=== PATIENT | female | born 1945 | race Caucasian/White ===

== ENCOUNTER 2019-03-06 15:22 | Outpatient (RCR) | payer MEDICARE, MEDICAID, SELFPAY ==
[2019-03-07 06:44] LABS: Add Urine Microscopic? YES; Appearance Urine Clear (Clear); Bacteria Urine Trace /hpf; Bilirubin Urine Negative (Negative); Blood Urine Negative (Negative); Color Urine Yellow (Yellow); Glucose Urine UA Negative (Negative); Ketones Urine Negative (Negative); Leukocyte Esterase Ur 2+ LEU/UL (Negative); Mucus Urine Rare /lpf; Nitrate Urine Negative (Negative); Protein Urine Negative (Negative); Specific Grav Ur 1.018 (1.001-1.035); Squamous Epithelial Cell Urine Occasional /hpf (Few); Urobilinogen Urine Negative mg/dL (<2.0); WBC Urine >75
== END 2019-06-04 23:59 | disposition home or self-care (01) ==
LOC: CAMBRIDGE 15:22
PROVIDERS: PCP Internal Medicine; Visit Provider Internal Medicine
DX: N39.0 Urinary tract infection, site not specified (principal)
CPT/HCPCS: 81001; 87086; 87088

== ENCOUNTER 2019-06-12 10:13 | Outpatient (RCR) | payer MEDICARE, MEDICAID, SELFPAY ==
[2019-06-13 06:56] LABS: Blood Urea Nitrogen 33 mg/dL (7-17); Calcium 9.7 mg/dL (8.4-10.2); Carbon Dioxide 28 mmol/L (22-30); Chloride 101 mmol/L (98-107); Estimated Glomerular Filt Rate 44; Glucose 124 mg/dL (65-105); Potassium 3.9 mmol/L (3.4-5.0); Sodium 142 mmol/L (137-145)
== END 2019-09-10 23:59 | disposition home or self-care (01) ==
LOC: CAMBRIDGE 10:13
PROVIDERS: PCP Internal Medicine; Visit Provider Internal Medicine
DX: E11.42 Type 2 diabetes mellitus with diabetic polyneuropathy (principal)
CPT/HCPCS: 36415; 80048

== ENCOUNTER 2019-11-29 15:00 | Outpatient (CLI) | payer MEDICARE, MEDICAID, SELFPAY ==
[2019-11-29 15:37] LABS: Basophils Percent Auto 0.3 % (0.2-1.2); Eosinophils Absolute Auto 0.4 K/mm3 (0-0.3); Eosinophils Percent Auto 4.3 % (0-4.4); Hemoglobin 12.6 g/dL (12.0-15.0); Immature Granulocyte Absolute 0.03 K/mm3 (0.00-0.031); Immature Granulocyte Percent A 0.3 % (0-0.5); Lymphocytes Absolute Auto 1.85 K/mm3 (0.9-3.2); Mean Corpuscular HGB Conc 30.7 g/dl (32-36); Mean Corpuscular Hemoglobin 26.5 pg (26-34); Mean Corpuscular Volume 86.1 fl (80-100); Mean Platelet Volume 11.4 fl (7.4-10.4); Monocytes Absolute Auto 0.8 K/mm3 (0.1-0.6); Monocytes Percent Auto 8.2 % (2.6-8.5); Neutrophils Absolute Auto 6.6 K/mm3 (1.3-6.7); Neutrophils Percent Auto 67.9 % (45.5-73.1); Platelet Count Result 271 k/mm3 (150-375); Red Blood Count 4.76 M/mm3 (4.2-5.4); Red Cell Distribution Width 15.2 % (11.5-14.5); White Blood Count 9.7 K/mm3 (4.5-10.0)
[2019-11-29 15:49] LABS: Alanine Aminotransferase 13 U/L (4-35); Albumin Level 3.7 g/dL (3.5-5.1); Alkaline Phosphatase 98 U/L (38-126); Anion Gap 11.8 mmol/L (7-16); Aspartate Amino Transferase 21 U/L (14-36); Bilirubin,Total 0.5 mg/dL (0.2-1.3); Blood Urea Nitrogen 26 mg/dL (7-17); Calcium 9.2 mg/dL (8.4-10.2); Carbon Dioxide 27 mmol/L (22-30); Chloride 102 mmol/L (98-107); Estimated Glomerular Filt Rate 55; Glucose 229 mg/dL (65-105); Potassium 3.8 mmol/L (3.4-5.0); Sodium 137 mmol/L (137-145)
[2019-11-29 16:19] LABS: Creatinine Urine 115.7 mg/dL
[2019-11-29 17:18] LABS: Microalbumin Urine Random > 1140.0 mg/L (0-16.7)
== END 2019-11-29 15:01 | disposition home or self-care (01) ==
PROVIDERS: PCP Internal Medicine; Visit Provider Internal Medicine
DX: E11.42 Type 2 diabetes mellitus with diabetic polyneuropathy (principal); Z79.4 Long term (current) use of insulin
CPT/HCPCS: 36415; 80053; 82043; 83036; 85025

== ENCOUNTER 2020-02-07 16:01 | Inpatient (IN) | payer MEDICARE, MEDICAID, SELFPAY ==
--- NOTE | ~2020-02-07 | CT_ITS ---
EXAMINATION: CT abdomen pelvis wo con DATE: 02/12/2020 14:29 INDICATION: Nausea and abdominal pain TECHNIQUE: Computed tomography (CT) of the abdomen and pelvis was performed without intravenous contr ast. The dose-length product (DLP) was 1439.12 mGy-cm. Automated exposure control and iterative recon struction technique were employed. COMPARISON: 06/28/2018 FINDINGS: There are airspace throughout the visualized lung bases. Cardiomegaly is noted. There is no pleural effusion or pneumothorax. Evaluation of the upper abdomen is limited by respiratory motion. Punctate calcifications in otherwise normal appearing liver and spleen likely represent healed granul omatous disease. The pancreas and adrenal glands appear normal. The gallbladder is absent. Cysts of t he left kidney measure up to 2.4 cm. There is a 3.6 cm cyst of the right kidney. Calcification and sc arring are unchanged in the interpolar region of the right kidney. No pathologically enlarged abdomin al or pelvic lymph nodes are identified. There is no free intraperitoneal gas or evidence of bowel ob struction. There is mild lumbar spondylosis. IMPRESSION: 1. No acute findings of the abdomen or pelvis. 2. Diffuse airspace opacities throughout the visualized lung bases, consistent with pneumonia. 3. Cardiomegaly. Reviewed, dictated and finalized at location A.
--- NOTE | ~2020-02-07 | XR_ITS ---
EXAMINATION: XR chest 2V DATE: 02/07/2020 17:08 INDICATION: Shortness of breath TECHNIQUE: AP and lateral views of the chest are obtained. COMPARISON: 07/05/2018 FINDINGS: There are diffuse opacities of the lungs, worst in the mid and lower lung zones. There is n o pleural effusion or pneumothorax. Cardiomegaly is noted. There is mild thoracic spondylosis. IMPRESSION: 1. Diffuse lung disease, worst in the mid and lower lung zones, consistent with pneumonia and/or pulm onary edema and/or atelectasis. Reviewed, dictated and finalized at location A. IMPRESSION: 1. Diffuse lung disease, worst in the mid and lower lung zones, consistent with pneumonia and/or pulmonary edema and/or atelectasis.
--- NOTE | ~2020-02-07 | US_ITS ---
EXAMINATION: US soft tissue LE RT DATE: 02/14/2020 15:46 INDICATION: Right calf mass. TECHNIQUE: Multiple grayscale and Doppler ultrasound images of the right calf were obtained. COMPARISON: None FINDINGS: There is a 10 x 9 x 6 mm subcutaneous hypoechoic and anechoic mass in the right calf. IMPRESSION: 1. 10 mm subcutaneous mass in the right calf, most likely a benign mass such as a sebaceous cyst. Reviewed, dictated and finalized at location A.
--- NOTE | ~2020-02-07 | US_ITS ---
EXAMINATION: US venous doppler [facility] DATE: 02/08/2020 16:52 INDICATION: Lower limb pain and tenderness TECHNIQUE: Grayscale ultrasound images without and with compression and Doppler ultrasound images of the bilateral lower extremity veins were obtained. COMPARISON: None. FINDINGS: The visualized portions of right common femoral vein, profunda (deep) femoral vein, femoral vein, pop liteal vein, posterior tibial veins, peroneal veins, gastrocnemius vein and greater saphenous vein ou tflow are patent. The visualized portions of left common femoral vein, profunda femoral vein, femoral vein, popliteal v ein, posterior tibial veins, peroneal veins, gastrocnemius vein and greater saphenous vein outflow ar e patent. IMPRESSION: 1. No deep venous thrombosis in either lower limb. Reviewed, dictated and finalized at location B.
[2020-02-07 16:02] VITALS: BP 176/96; PULSE 98; RESP 36; O2SAT 82
[2020-02-07 16:08] VITALS: PULSE 93; O2SAT 98
--- NOTE | 2020-02-07 16:22 | ECG_ITS ---
Measurements Intervals [place] Rate: 96 P: 71 OR: 215 QRS: 40 QRSD: 105 T: 67 QT: 346 QTc: 437 Interpretive Statements SINUS RHYTHM WITH FIRST DEGREE AV BLOCK VENTRICULAR PREMATURE COMPLEX DELAYED PRECORDIAL R/S TRANSITION BASELINE ARTIFACT- I, II, III, AVR, AVL, AVF, V1-V2 ABNORMAL ECG Electronically Signed On 02-07-2020 19:30:11 CDT by Jimenez Mendez D.O.
[2020-02-07 16:33] LABS: Basophils Percent Auto 0.1 % (0.2-1.2); Eosinophils Absolute Auto 0.1 K/mm3 (0-0.3); Eosinophils Percent Auto 0.5 % (0-4.4); Hematocrit 43.7 % (37.0-47.0); Hemoglobin 13.4 g/dL (12.0-15.0); Immature Granulocyte Absolute 0.03 K/mm3 (0.00-0.031); Immature Granulocyte Percent A 0.3 % (0-0.5); Lymphocytes Absolute Auto 1.03 K/mm3 (0.9-3.2); Lymphocytes Percent Auto 10.7 % (18.3-44.2); Mean Corpuscular HGB Conc 30.7 g/dl (32-36); Mean Corpuscular Hemoglobin 26.5 pg (26-34); Mean Corpuscular Volume 86.5 fl (80-100); Mean Platelet Volume 11.9 fl (7.4-10.4); Monocytes Absolute Auto 0.6 K/mm3 (0.1-0.6); Monocytes Percent Auto 6.2 % (2.6-8.5); Neutrophils Absolute Auto 7.9 K/mm3 (1.3-6.7); Neutrophils Percent Auto 82.2 % (45.5-73.1); Platelet Count Result 230 k/mm3 (150-375); Red Blood Count 5.05 M/mm3 (4.2-5.4); Red Cell Distribution Width 16.3 % (11.5-14.5); White Blood Count 9.6 K/mm3 (4.5-10.0)
[2020-02-07 17:34] LABS: Anion Gap 8 mmol/L (8-16); Blood Urea Nitrogen 17 mg/dL (7-17); Calcium 8.9 mg/dL (8.4-10.2); Carbon Dioxide 28 mmol/L (22-30); Chloride 104 mmol/L (98-107); Estimated Glomerular Filt Rate 55; Glucose 132 mg/dL (65-105); Potassium 4.1 mmol/L (3.4-5.0); Sodium 140 mmol/L (137-145)
[2020-02-07 18:48] VITALS: BP 176/100; PULSE 78; RESP 22; O2SAT 95
--- NOTE | 2020-02-07 18:55 | ED.SOB ---
HPI - SOB/Dyspnea General Chief Complaint: Shortness of Breath/Dyspnea Stated Complaint: SOB Time Seen by Provider: 02/07/20 16:35 Source: patient Mode of arrival: EMS Limitations: altered mental status and dementia History of Present Illness HPI Narrative: 74 f at ass't living this am c/o sob and sats were reportedly in low 80's there placed on O2 w/ improvement she reportedly does not normally wear o2 but has one prior abg here, also on 4l done a year ago not a good historian but declines a fever, cough, or cp and her main c/o is that she wants to get out of here which seems to be more about the gurney than the hospital per se she is O x person and a hospital but not to year MD elicited complaint: shortness of breath Related Data Home Medications Medication Instructions Recorded Confirmed aspirin 81 mg tablet,delayed 81 mg PO DAILY 04/09/19 release atorvastatin 40 mg tablet 40 mg PO DAILY 04/09/19 clopidogrel 75 mg tablet 75 mg PO DAILY 04/09/19 gabapentin 300 mg capsule 300 mg PO TID 04/09/19 insulin needles (disposable) 30 X #1 04/09/19 3/4 isosorbide dinitrate 30 mg tablet 30 mg PO DAILY tablet 04/09/19 levothyroxine 112 mcg tablet 112 mcg PO DAILY 04/09/19 lisinopril 40 mg tablet 40 mg PO DAILY 04/09/19 nitroglycerin 0.4 mg sublingual 0.4 mg SUBLINGUAL Q5M PRN 04/09/19 tablet potassium chloride 20 mEq 20 meq PO DAILY 04/09/19 tablet,extended release meclizine 25 mg tablet 25 mg PO TID PRN 06/01/19 mecobalamin (vitamin B12) 1,000 1,200 mcg PO DAILY tablet 06/01/19 mcg disintegrating tablet,sublingual pantoprazole 40 mg tablet,delayed 40 mg PO BID tablet 06/01/19 release calcium carbonate-vitamin D3 600 cap PO 10/03/19 mg (1,500 mg)-400 unit capsule nystatin 100,000 unit/gram topical 1 applic TOPICAL BID 10/03/19 powder Allergies Allergy/AdvReac Type Severity Reaction Status Date / Time codeine AdvReac Unknown Unknown Verified 01/09/20 08:37 Review of Systems Review of Systems: All systems reviewed & are unremarkable except as noted in HPI and below ROS unobtainable: Yes unobtainable due to mental status Constitutional: Constitutional: Reports chills, Denies fever(s), Denies headache(s) and Denies night sweats Eyes: Eyes: Denies loss of vision and Denies other visual disturbances ENT: Denies headache(s) and Denies hoarseness Cardiovascular: Cardiovascular: Denies chest pain, Denies leg edema, Denies palpitations and Denies dyspnea Respiratory: Respiratory: Reports dyspnea and Denies wheezing Gastrointestinal: Gastrointestinal: Denies diarrhea and Denies vomiting Genitourinary: Genitourinary: Denies urinary frequency Musculoskeletal: Musculoskeletal: Denies abnormal gait, Denies deformity, Denies joint swelling, Denies muscle weakness and Denies numbness Integumentary/Breasts: Skin/Breast: Denies rash, Denies unusual bruising and Denies wounds Neurologic: Denies abnormal gait, Denies headache(s), Denies focal weakness, Denies loss of vision and Denies numbness Psychiatric: Psychiatric: Reports no additional psychiatric complaints Endocrine: Endocrine: Reports fatigue and Denies palpitations [facility] Past Medical History Medical History (Updated 02/07/20 @ 21:58 by Dez Mckenzie MD) Anemia Angina at rest Anxiety Arthritis CAD (coronary artery disease) CHF (congestive heart failure), NYHA class I COPD (chronic obstructive pulmonary disease) Depression H/O: HTN (hypertension) Hearing loss Heart disease Obesity Renal failure SOB (shortness of breath) Stroke Thyroid disease Ulcer Vision loss Surgical History Surgical History (Updated 01/09/20 @ 08:42 by Brenda Rios) History of cholecystectomy Family History Family History (Updated 01/09/20 @ 08:44 by Brenda Rios) Other Alcoholism Blood disorder CAD (coronary artery disease) Cerebrovascular accident Social History Social History (Reviewed
[2020-02-07] MEDS: ALBUTEROL SULFATE NEB 2.5 MG/0.5 ML INH 5 MG INHALATION (19:11)
[2020-02-07] MEDS: IPRATROPIUM BR 0.02% INH SOLN 0.5 MG/2.5 ML VIAL INHALATION (19:11)
[2020-02-07 19:22] LABS: Alveolar/Arterial O2 Gradient 112.2 mmHg; Base Excess ABG -1.5 mEq/l (+/-2.0); Device NASAL CANNULA; Fractional Inspired Oxygen 36 %; HCO3 ABG 22.4 mEq/l (22.0-26.0); Modified Allen's Test Pass; Oxygen Saturation ABG 97.9 % (95.0-100.0); Oxyhemoglobin 96.4 % THb (90.0-100.0); PCO2 ABG 35.3 mmHg (35.0-45.0); PO2 ABG 103.5 mmHg (80.0-100.0); PO2 FiO2 Ratio Arterial Blood 2.88 %; Site Drawn RIGHT RADIAL; Total Hemoglobin 13.2 g/dL (12.0-18.0)
[2020-02-07 19:30] VITALS: PULSE 77; RESP 20
[2020-02-07 19:43] LABS: NT Pro B Type Natriuretic Pept 684 PG/ML (5-100); Troponin I 0.025 ng/mL (0.000-0.034)
[2020-02-07] MEDS: FUROSEMIDE INJ 40 MG/4 ML VIAL IV PUSH (19:43)
[2020-02-07] MEDS: AZITHROMYCIN 250 MG TABLET 500 MG PO (21:56)
[2020-02-07 22:01] VITALS: BP 145/55; PULSE 78; RESP 18
[2020-02-07 23:10] VITALS: BP 144/54; PULSE 65; RESP 18; TEMP 36.5; O2SAT 97; BMI 41.4
--- NOTE | 2020-02-07 23:30 | ADMGEN ---
This patient, Tracy Thorpe, was admitted to 3 Med Surg Room 331-01. Patient/family oriented to hospital policies and general routines including ID bracelet, bed and alarms, visiting hours, pain management, procedures, bathroom and other care routines, personal items, smoking policy, room service/diet, and visiting hours. Information on how to activate the Rapid Response Team has been discussed. Patient/Family are encouraged to report perceived risks to care and to ask questions if they do not understand what they are told or what they should do.
[2020-02-07] MEDS: LACTATED RINGERS 1,000 ML 50 ML IV CONT (23:36)
[2020-02-08] VITALS (7 sets, daily range): BP systolic 123–153; BP diastolic 35–61; PULSE 54–60; RESP 18–20; TEMP 36.3–36.5; O2SAT 94–100
[2020-02-08 07:01] LABS: Basophils Percent Auto 0.2 % (0.2-1.2); Hematocrit 39.1 % (37.0-47.0); Immature Granulocyte Absolute 0.02 K/mm3 (0.00-0.031); Immature Granulocyte Percent A 0.4 % (0-0.5); Lymphocytes Absolute Auto 0.65 K/mm3 (0.9-3.2); Lymphocytes Percent Auto 11.4 % (18.3-44.2); Mean Corpuscular HGB Conc 30.7 g/dl (32-36); Mean Corpuscular Hemoglobin 26.3 pg (26-34); Mean Corpuscular Volume 85.6 fl (80-100); Mean Platelet Volume 11.7 fl (7.4-10.4); Monocytes Absolute Auto 0.1 K/mm3 (0.1-0.6); Monocytes Percent Auto 2.1 % (2.6-8.5); Neutrophils Absolute Auto 4.9 K/mm3 (1.3-6.7); Neutrophils Percent Auto 85.9 % (45.5-73.1); Platelet Count Result 193 k/mm3 (150-375); Red Blood Count 4.57 M/mm3 (4.2-5.4); White Blood Count 5.7 K/mm3 (4.5-10.0)
[2020-02-08 07:13] LABS: Anion Gap 9 mmol/L (8-16); Blood Urea Nitrogen 23 mg/dL (7-17); Calcium 8.7 mg/dL (8.4-10.2); Carbon Dioxide 24 mmol/L (22-30); Chloride 106 mmol/L (98-107); Estimated CRCL calculation 57 ml/min; Estimated Glomerular Filt Rate 49; Glucose 232 mg/dL (65-105); Potassium 3.8 mmol/L (3.4-5.0); Sodium 139 mmol/L (137-145)
--- NOTE | 2020-02-08 07:59 | PM.IMHP ---
H&P: HPI History of Present Illness Date/Time: 02/08/20 07:59 Chief complaint: dyspnea, chf Narrative: Date of admission: 02/07/2020 Date of service: 02/08/2020 Tracy Thorpe is a 74 year old female with a history of CHF, CAD, COPD, HTN, T2DM and multiple other comorbidities who presented to the emergency department on 02/07/2020 from assisted living at [facility] with complaints of SOB and she was noted to be hypoxic in the 80s. she reports that she had been feeling progressively more short of breath over the past 2-3 days. she felt that this was acutely worsened and she was having shaking chills, which prompted her to activate EMS. She reports that she has had coughing spells off and on for the past year but feels that her coughing has worsened over the past several days and she feels that she has had chest congestion that she cannot expectorate. She denies fevers. She denies ESPINOZA, orthopnea, or PND. She denies chest pain or palpitations. She does complain of pain in the right lateral costal region which is worse with movements and coughing. She denies any sick contacts and has been quarantined at her assisted living facility. At presentation, she was tachypneic and hypoxic at 82% which rapidly improved with O2 administration. BP elevated, additional VSS and she was afebrile. CBC with diff was normal, electrolytes stable, ABG with elevated pO2, BNP 684, and CXR showing diffuse lung disease, worst in mid and lower lung zones consistent with pneumonia and/or pulmonary edema. She received IV dexamethasone, azithromycin, rocephin, and 40 mg IV lasix. She was swabbed for Covid. Review of Systems Review of Systems: Narrative: 12 systems reviewed with pertinent positives and negatives as per HPI. Additionally, she denies nausea, vomiting, abdominal pain, chest pain, headache, dizziness, lightheadedness, numbness, tingling, dysphagia, visual changes, bleeding, bruising, hematuria, melena, hematochezia. She was scheduled to establish with cardiology (Dr. Mendez) on 02/07/20 but missed the appointment due to coming to the hospital. [facility] Past Medical History Medical History (Updated 02/08/20 @ 11:52 by Gloria Benavides PA-C) Anemia Anxiety Arthritis CAD (coronary artery disease) CHF (congestive heart failure), NYHA class I Chronic kidney disease COPD (chronic obstructive pulmonary disease) Depression H/O: HTN (hypertension) Hearing loss Hypothyroidism Obesity TIA (transient ischemic attack) Ulcer Vision loss Surgical History Surgical History (Updated 02/08/20 @ 11:52 by Gloria Benavides PA-C) H/O tubal ligation History of cholecystectomy History of coronary artery stent placement Family History Family History (Updated 02/08/20 @ 11:55 by Gloria Benavides PA-C) Father Hypertension Cerebrovascular accident CAD (coronary artery disease) Mother Acute myocardial infarction Diabetes mellitus Lung cancer Hypertension Social History Social History (Updated 02/08/20 @ 11:57 by Gloria Benavides PA-C) Social History: Ms. Thorpe lives in assisted living at [facility]. She is independent in her ADLs. She designates her daughter, Lisa, as her surrogate decision maker. Her PCP is Dr. Tristan. She would like to be a full code. Smoking status: Never smoker Alcohol intake: former Substance use: never Living arrangements: assisted living Gender identity (if verbalized by the patient): Female Sexual Orientation (if Verbalized by the Patient): Straight or Heterosexual Spiritual care concerns: No Meds Home Medications and Allergies Home Medications Medication Instructions Recorded Confirmed Type aspirin 81 mg tablet,delayed 81 mg PO DAILY 04/09/19 02/08/20 History release atorvastatin 40 mg tablet 40 mg PO DAILY 04/09/19 02/08/20 History clopidogrel 75 mg tablet 75 mg PO DAILY 04/09/19 02/08/20 History gabapentin 300 mg capsule 300 mg PO TID 04/09/19 02/08/20 History in
[2020-02-08] MEDS: INSULIN ASPART (*BKC) 100 UNITS/ML SUB-Q ×3 (09:40→16:46)
[2020-02-08] MEDS: POTASSIUM CHLORIDE 20 MEQ TABLET.ER PO (09:42)
[2020-02-08] MEDS: CLOPIDOGREL BISULFATE 75 MG TABLET PO (09:42)
[2020-02-08] MEDS: ENOXAPARIN 40 MG/0.4 ML SYRINGE SUB-Q (09:42)
[2020-02-08] MEDS: PANTOPRAZOLE 40 MG TABLET PO ×2 (09:42→20:29)
[2020-02-08] MEDS: ATORVASTATIN 40 MG TABLET PO (09:43)
[2020-02-08] MEDS: METOPROLOL SUCCINATE EXT REL 50 MG TABCR PO (09:43)
[2020-02-08] MEDS: ISOSORBIDE DINITRATE 10 MG TABLET 30 MG PO (09:43)
[2020-02-08] MEDS: LEVOTHYROXINE SODIUM 112 MCG TABLET PO (09:43)
[2020-02-08] MEDS: DULoxetine HCL 20 MG CAPSULE.DR PO (09:44)
[2020-02-08] MEDS: GABAPENTIN 300 MG CAPSULE PO ×3 (09:44→16:38)
[2020-02-08] MEDS: ASPIRIN 81 MG ENTERIC TABLET PO (09:45)
[2020-02-08] MEDS: lisinopriL 20 MG TABLET 40 MG PO (09:45)
[2020-02-08] MEDS: guaiFENesin 12 HR 600 MG TABCR PO ×2 (09:45→20:29)
[2020-02-08 11:46] LABS: Glucose Point of Care 235 (65-105)
[2020-02-08 13:02] LABS: Glucose Point of Care 215 (65-105)
[2020-02-08] MEDS: FUROSEMIDE INJ 40 MG/4 ML VIAL IV PUSH (13:05)
[2020-02-08] MEDS: ACETAMINOPHEN 325 MG TABLET 650 MG PO (13:05)
[2020-02-08 14:11] LABS: SARS-CoV-2 RNA PCR Positive
--- NOTE | 2020-02-08 15:06 | PCOTNOTE ---
On 02/08/20, the student, Karen Cedeno, provided care and completed [facility] documentation on this patient. I have reviewed the student's documentation and agree with the findings.
[2020-02-08 18:40] LABS: Glucose Point of Care 234 (65-105)
[2020-02-08] MEDS: AMITRIPTYLINE HCL 25 MG TABLET PO (20:29)
[2020-02-08] MEDS: INSULIN GLARGINE (*BKC) 100 UNITS/ML 40 UNITS SUB-Q (20:29)
[2020-02-08 22:26] LABS: Glucose Point of Care 304 (65-105)
[2020-02-09] VITALS (7 sets, daily range): BP systolic 108–151; BP diastolic 40–75; PULSE 47–56; RESP 18–20; TEMP 36.2–36.6; O2SAT 95–100
--- NOTE | 2020-02-09 | ECHO_ITS ---
Patient Info Name: Tracy Thorpe Age: 74 years : 1945 Gender: Female Ht: 60 in Wt: 270 lbs BSA: 2.36 m2 HR: 54 bpm BP: 145 / 75 mmHg Technical Quality: Good Exam Date: 02/09/2020 11:11 AM Exam Location: [facility] Patient Status: Inpatient Admit Date: 02/07/2020 Staff Ordering Physician: Gloria Benavides PA-C Elevator Pilot: Zena Auguste RDCS Attending Provider: Gloria Benavides PA-C Referring Physician: Kennedy SRINIVASAN; Exam Type: CA echo doppler color flow Study Info Complete two-dimensional, color flow and Doppler transthoracic echocardiogram is performed. Summary 1. Complete two-dimensional, color flow and Doppler transthoracic echocardiogram is performed. 2. Left ventricular chamber dimension is normal. 3. Left ventricular systolic function is normal, estimated at 55-60%. 4. There is severe concentric increased left ventricular wall thickness. 5. The left ventricular diastolic function is abnormal. 6. E/e' 26 is elevated. 7. Left atrial chamber dimension is mildly enlarged. 8. There is severe aortic valve sclerosis. 9. There is moderate aortic valve stenosis with a peak velocity of 217 cm/s, mean gradient of 9 mmHg, and aortic valve area of 1.0 cm2. 10. There is trace aortic valve regurgitation. 11. The mitral valve has moderately calcified annulus. 12. There is mild to moderate mitral valve regurgitation. 13. There is trace tricuspid valve regurgitation. Left Ventricle E/e' 26 is elevated. Left ventricular chamber dimension is normal. Left ventricular systolic function is normal, estimated at 55-60%. There is severe concentric increased left ventricular wall thickness. The left ventricular diastolic function is abnormal. Right Ventricle Right ventricular chamber dimension is normal. Right ventricular systolic function is normal. Left Atria Left atrial chamber dimension is mildly enlarged. Right Atria Right atrial chamber dimension is normal. Aortic Valve The aortic valve is trileaflet. There is severe aortic valve sclerosis. There is moderate aortic valve stenosis with a peak velocity of 217 cm/s, mean gradient of 9 mmHg, and aortic valve area of 1.0 cm2. There is trace aortic valve regurgitation. Pulmonic Valve There is no pulmonic regurgitation. Mitral Valve The mitral valve has moderately calcified annulus. There is no mitral valve stenosis. There is mild to moderate mitral valve regurgitation. Tricuspid Valve RVSP is not calculated due to an inadequate TR jet. There is trace tricuspid valve regurgitation. Pericardium/Pleural There is no pericardial effusion. Aorta The aortic root size at the sinus of Valsalva is normal. Left Ventricular Outflow Tract Name Value Normal LVOT 2D LVOT Diameter 2.0 cm LVOT Doppler LVOT Peak Velocity 82 cm/s LVOT Peak Gradient 1 mmHg LVOT Mean Gradient 1 mmHg LVOT VTI 17 cm LVOT VTI/AV VTI Ratio 0.3 LVOT Stroke Volume 52 ml
[2020-02-09] MEDS: LEVOTHYROXINE SODIUM 112 MCG TABLET PO (06:23)
[2020-02-09 06:58] LABS: Mean Corpuscular HGB Conc 30.8 g/dl (32-36); Mean Corpuscular Hemoglobin 25.8 pg (26-34); Mean Corpuscular Volume 83.9 fl (80-100); Mean Platelet Volume 11.4 fl (7.4-10.4); Platelet Count Result 229 k/mm3 (150-375); Red Blood Count 4.65 M/mm3 (4.2-5.4); Red Cell Distribution Width 15.7 % (11.5-14.5); White Blood Count 8.9 K/mm3 (4.5-10.0)
[2020-02-09 07:21] LABS: Alanine Aminotransferase 17 U/L (4-35); Albumin Level 3.2 g/dL (3.5-5.1); Alkaline Phosphatase 63 U/L (38-126); Anion Gap 7 mmol/L (8-16); Aspartate Amino Transferase 29 U/L (14-36); Bilirubin,Total 0.4 mg/dL (0.2-1.3); Blood Urea Nitrogen 36 mg/dL (7-17); CRP 2.8 mg/dL (<1.0); Calcium 8.9 mg/dL (8.4-10.2); Carbon Dioxide 27 mmol/L (22-30); Chloride 104 mmol/L (98-107); Estimated CRCL calculation 52 ml/min; Estimated Glomerular Filt Rate 44; Glucose 248 mg/dL (65-105); Lactate Dehydrogenase 530 U/L (313-618); Potassium 4.5 mmol/L (3.4-5.0); Sodium 138 mmol/L (137-145)
[2020-02-09] MEDS: lisinopriL 20 MG TABLET 40 MG PO (07:40)
[2020-02-09] MEDS: GABAPENTIN 300 MG CAPSULE PO ×3 (07:40→17:01)
[2020-02-09] MEDS: DULoxetine HCL 20 MG CAPSULE.DR PO (07:40)
[2020-02-09] MEDS: ENOXAPARIN 40 MG/0.4 ML SYRINGE SUB-Q (07:40)
[2020-02-09] MEDS: POTASSIUM CHLORIDE 20 MEQ TABLET.ER PO (07:40)
[2020-02-09] MEDS: guaiFENesin 12 HR 600 MG TABCR PO ×2 (07:41→20:48)
[2020-02-09] MEDS: ISOSORBIDE DINITRATE 10 MG TABLET 30 MG PO (07:41)
[2020-02-09] MEDS: CLOPIDOGREL BISULFATE 75 MG TABLET PO (07:41)
[2020-02-09] MEDS: METOPROLOL SUCCINATE EXT REL 50 MG TABCR PO (07:41)
[2020-02-09] MEDS: ATORVASTATIN 40 MG TABLET PO (07:42)
[2020-02-09] MEDS: ASPIRIN 81 MG ENTERIC TABLET PO (07:42)
[2020-02-09] MEDS: PANTOPRAZOLE 40 MG TABLET PO ×2 (07:42→20:48)
[2020-02-09] MEDS: FUROSEMIDE INJ 40 MG/4 ML VIAL IV PUSH (07:43)
[2020-02-09] MEDS: INSULIN ASPART (*BKC) 100 UNITS/ML SUB-Q ×4 (07:45→17:01)
[2020-02-09] MEDS: ACETAMINOPHEN 325 MG TABLET 650 MG PO ×3 (09:47→21:45)
[2020-02-09 11:06] LABS: Glucose Point of Care 235 (65-105)
--- NOTE | 2020-02-09 11:29 | PM.IMPN ---
Progress Note: A&P Assessment and Plan (1) Acute respiratory failure with hypoxia: Code(s): J96.01 - Acute respiratory failure with hypoxia Status: Acute Assessment and Plan: At presentation was found to be hypoxic at 82%. Improved with O2 administration and she is currently maintaining adequate oxygen saturations in the mid-upper 90s on 3L O2 per NC. She is not on chronic home oxygen. Suspect multifactorial cause to include pneumonia and pulmonary edema. Supplemental O2 as needed with goal saturation 92% or above. Wean to goal. Continue IV steroids and Lasix; bronchodilators Monitor respiratory status closely (2) Pneumonia due to 2019 novel coronavirus: Code(s): U07.1 - COVID-19; J12.89 - Other viral pneumonia Status: Acute Assessment and Plan: CXR is consistent with pneumonia. Tested positive for COVID-19 on 02/07/2020. She has remained afebrile. She is currently requiring 3 L O2 per nasal cannula and maintaining adequate oxygenation. Continue IV dexamethasone given oxygen requirements. Day 3. Increase in O2 from 2 to 3 L is noted. Will continue to closely monitor her oxygen requirements consider addition of remdesivir if any acute worsening. IV azithromycin and Rocephin discontinued on 02/08/2020 as superimposed bacterial infection is unlikely. Supportive care to include antipyretics, bronchodilators, and expectorants Trend acute phase reactants Continue isolation precautions (3) CHF (congestive heart failure): Code(s): I50.9 - Heart failure, unspecified Status: Acute Assessment and Plan: BNP 684 which is appropriate for her age. CXR showed evidence of pulmonary edema. She reports compliance with Lasix. Echo reviewed from June 2018 with EF 50-55% and grade I diastolic dysfunction. She appears euvolemic at this time. She received 40 mg IV lasix today. Transition to 40 mg PO lasix daily tomorrow Echo performed on 02/08/20 and results pending. Heart healthy diet, daily weights, and monitor I&O (4) Type 2 diabetes mellitus with hyperglycemia: Code(s): E11.65 - Type 2 diabetes mellitus with hyperglycemia Status: Acute Assessment and Plan: Last A1c was 8.0 in November 2019. Home regimen consists of Lantus 50 units in the morning and 20 units in the evening. Blood sugars remain elevated in the 230s, and she had 1 reading yesterday evening at 300. Likely worsened by IV steroids. Accuchecks ACHS, moderate dose SSI, and hypoglycemic protocol. Diabetic diet. increase Lantus to 50 units q.h.s. and will add 5 units bolus insulin scheduled with meals Monitor blood sugars closely and adjust as needed (5) Essential (primary) hypertension: Code(s): I10 - Essential (primary) hypertension Status: Acute Assessment and Plan: Blood pressures reviewed today and stable in the 140s systolic. BP at presentation elevated in the 170s which has improved. Continue lisinopril and lasix Monitor blood pressure daily (6) Chronic kidney disease: Code(s): N18.9 - Chronic kidney disease, unspecified Status: Acute Assessment and Plan: She is in the process of establishing with nephrology. Review of prior labs shows baseline 1.1-1.2. Creatinine is 1.2 today. Continue with cautious diuresis in light of CKD Monitor renal function closely and dose medications Subjective Date/time seen: 02/09/20 11:29 Interval history: Date of service: 02/09/2020 Tracy Thorpe is a 74 year old female with a history of CHF, CAD, COPD, HTN, T2DM and multiple other comorbidities who is seen in follow-up for COVID-19 pneumonia. Reports she is feeling okay today. She is endorsing nonproductive cough and feels that she has phlegm stuck in her throat. Her shortness of breath has improved. Denies wheezing, EPSINOZA, orthopnea, or PND. No chest pain or palpitations. She is complaining of right lateral costal discomfort she pillo
[2020-02-09 12:57] LABS: Glucose Point of Care 271 (65-105)
--- NOTE | 2020-02-09 14:15 | PCOTNOTE ---
Patient refused OT treatment this afternoon due to pain. Refused to get up to the chair with therapy when her lunch arrived also.
--- NOTE | 2020-02-09 14:28 | PCPTNOTE ---
Attempted PT evaluation this date x 2; pt refused. Will attempt at a later date/time.
[2020-02-09 17:30] LABS: Glucose Point of Care 195 (65-105)
[2020-02-09] MEDS: AMITRIPTYLINE HCL 25 MG TABLET PO (20:48)
[2020-02-09] MEDS: INSULIN GLARGINE (*BKC) 100 UNITS/ML 50 UNITS SUB-Q (20:48)
[2020-02-09 21:14] LABS: Glucose Point of Care 191 (65-105)
[2020-02-09] MEDS: ALPRAZolam (*CRX) 0.25 MG TABLET PO (21:46)
[2020-02-10] VITALS (9 sets, daily range): BP systolic 129–158; BP diastolic 41–79; PULSE 49–69; RESP 18–20; TEMP 36.3–36.7; O2SAT 94–100
[2020-02-10] MEDS: LEVOTHYROXINE SODIUM 112 MCG TABLET PO (06:12)
[2020-02-10] MEDS: ACETAMINOPHEN 325 MG TABLET 650 MG PO ×3 (06:23→21:37)
[2020-02-10 06:28] LABS: Hemoglobin 11.6 g/dL (12.0-15.0); Mean Corpuscular HGB Conc 30.5 g/dl (32-36); Mean Corpuscular Hemoglobin 26.4 pg (26-34); Mean Corpuscular Volume 86.6 fl (80-100); Mean Platelet Volume 12.3 fl (7.4-10.4); Platelet Count Result 214 k/mm3 (150-375); Red Blood Count 4.39 M/mm3 (4.2-5.4); Red Cell Distribution Width 15.8 % (11.5-14.5); White Blood Count 7.7 K/mm3 (4.5-10.0)
[2020-02-10 06:56] LABS: Alanine Aminotransferase 15 U/L (4-35); Alkaline Phosphatase 59 U/L (38-126); Anion Gap 4 mmol/L (8-16); Aspartate Amino Transferase 25 U/L (14-36); Bilirubin,Total 0.3 mg/dL (0.2-1.3); Blood Urea Nitrogen 45 mg/dL (7-17); CRP 1.3 mg/dL (<1.0); Calcium 8.8 mg/dL (8.4-10.2); Carbon Dioxide 28 mmol/L (22-30); Chloride 106 mmol/L (98-107); Estimated CRCL calculation 52 ml/min; Estimated Glomerular Filt Rate 44; Glucose 157 mg/dL (65-105); Lactate Dehydrogenase 551 U/L (313-618); Potassium 4.3 mmol/L (3.4-5.0); Sodium 138 mmol/L (137-145)
[2020-02-10] MEDS: INSULIN ASPART (*BKC) 100 UNITS/ML SUB-Q ×3 (07:55→17:05)
[2020-02-10] MEDS: ISOSORBIDE DINITRATE 10 MG TABLET 30 MG PO (07:57)
[2020-02-10] MEDS: ENOXAPARIN 40 MG/0.4 ML SYRINGE SUB-Q (07:57)
[2020-02-10] MEDS: lisinopriL 20 MG TABLET 40 MG PO (07:57)
[2020-02-10] MEDS: GABAPENTIN 300 MG CAPSULE PO ×3 (07:57→17:05)
[2020-02-10] MEDS: guaiFENesin 12 HR 600 MG TABCR PO ×2 (07:58→21:37)
[2020-02-10] MEDS: ATORVASTATIN 40 MG TABLET PO (07:58)
[2020-02-10] MEDS: DULoxetine HCL 20 MG CAPSULE.DR PO (07:58)
[2020-02-10] MEDS: POTASSIUM CHLORIDE 20 MEQ TABLET.ER PO (07:58)
[2020-02-10] MEDS: ASPIRIN 81 MG ENTERIC TABLET PO (07:58)
[2020-02-10] MEDS: PANTOPRAZOLE 40 MG TABLET PO ×2 (07:58→21:37)
[2020-02-10] MEDS: METOPROLOL SUCCINATE EXT REL 50 MG TABCR PO (07:58)
[2020-02-10] MEDS: CLOPIDOGREL BISULFATE 75 MG TABLET PO (07:58)
[2020-02-10] MEDS: FUROSEMIDE 40 MG TABLET PO (07:59)
[2020-02-10 11:06] LABS: Glucose Point of Care 137 (65-105)
--- NOTE | 2020-02-10 13:35 | PM.IMPN ---
Progress Note: A&P Assessment and Plan (1) Acute respiratory failure with hypoxia: Code(s): J96.01 - Acute respiratory failure with hypoxia Status: Acute Assessment and Plan: At presentation was found to be hypoxic at 82%. Improved with O2 administration and she is currently maintaining adequate oxygen saturations in the upper 90s on 3L O2 per NC. She is not on chronic home oxygen. Suspect multifactorial cause to include pneumonia and pulmonary edema. Supplemental O2 as needed with goal saturation 92% or above. I have decreased her to 2L. Continue to wean to goal. Continue IV steroids, lasix, and bronchodilators Monitor respiratory status closely Consider home O2 eval tomorrow if still requiring supplemental O2 (2) Pneumonia due to 2019 novel coronavirus: Code(s): U07.1 - COVID-19; J12.89 - Other viral pneumonia Status: Acute Assessment and Plan: CXR is consistent with pneumonia. Tested positive for COVID-19 on 02/07/2020. She has remained afebrile. She is currently requiring 3 L O2 per nasal cannula and maintaining adequate oxygenation. Continue IV dexamethasone given oxygen requirements. Day 4 (started 02/07/20). Will continue to closely monitor her oxygen requirements and consider addition of remdesivir if any acute worsening. IV azithromycin and Rocephin discontinued on 02/08/2020 as superimposed bacterial infection is unlikely. Supportive care to include antipyretics, bronchodilators, and expectorants Trend acute phase reactants Continue isolation precautions (3) CHF (congestive heart failure): Code(s): I50.9 - Heart failure, unspecified Status: Acute Assessment and Plan: BNP 684 which is appropriate for her age. CXR showed evidence of possible pulmonary edema. She reports compliance with Lasix. Echo reviewed from June 2018 with EF 50-55% and grade I diastolic dysfunction. She appears euvolemic at this time. Repeat echo performed 02/09/20 which showed EF 55-60% and otherwise largely unchanged. Does not appear to be consistent with acute CHF exacerbation. She received 40 mg PO lasix today. Transition to home dose 20 mg Lasix tomorrow. Heart healthy diet, daily weights, and monitor I&O (4) Type 2 diabetes mellitus with hyperglycemia: Code(s): E11.65 - Type 2 diabetes mellitus with hyperglycemia Status: Acute Assessment and Plan: Last A1c was 8.0 in November 2019. Home regimen consists of Lantus 50 units in the morning and 20 units in the evening. Blood sugars remain elevated in the 230s, and she had 1 reading yesterday evening at 300. Likely worsened by IV steroids. Blood sugar evaluated today and improved at 157. Accuchecks ACHS, moderate dose SSI, and hypoglycemic protocol. Diabetic diet. Continue Lantus at 50 units qHS Continue 5 units bolus insulin scheduled with meals Monitor blood sugars closely and adjust as needed (5) Essential (primary) hypertension: Code(s): I10 - Essential (primary) hypertension Status: Acute Assessment and Plan: Blood pressure reviewed today and stable at 136/43. BP at presentation elevated in the 170s which has improved. Continue lisinopril and lasix Monitor blood pressure daily (6) Chronic kidney disease: Code(s): N18.9 - Chronic kidney disease, unspecified Status: Acute Assessment and Plan: She is in the process of establishing with nephrology. Review of prior labs shows baseline 1.1-1.2. Creatinine is 1.2 today. Continue with cautious diuresis in light of CKD Monitor renal function closely and renally dose medications Subjective Date/time seen: 02/10/20 13:35 Interval history: Date of service: 02/10/2020 Tracy Thorpe is a 74 year old female with a history of CHF, CAD, COPD, HTN, T2DM and multiple other comorbidities who is seen in follow-up for COVID-19 pneumonia. She felt a little nauseous after eating her breakfast thi
--- NOTE | 2020-02-10 14:35 | PCPTNOTE ---
Patient refused to participate in physical therapy evaluation stating too fatigued.
[2020-02-10 16:44] LABS: Glucose Point of Care 156 (65-105)
[2020-02-10 17:45] LABS: Glucose Point of Care 178 (65-105)
[2020-02-10] MEDS: AMITRIPTYLINE HCL 25 MG TABLET PO (21:37)
[2020-02-10] MEDS: INSULIN GLARGINE (*BKC) 100 UNITS/ML 50 UNITS SUB-Q (21:38)
[2020-02-10 22:34] LABS: Glucose Point of Care 158 (65-105)
[2020-02-11] VITALS (8 sets, daily range): BP systolic 129–175; BP diastolic 51–86; PULSE 51–59; RESP 20; TEMP 36.4–36.7; O2SAT 91–99
[2020-02-11] MEDS: LEVOTHYROXINE SODIUM 112 MCG TABLET PO (06:20)
[2020-02-11 06:50] LABS: Hematocrit 39.6 % (37.0-47.0); Hemoglobin 11.9 g/dL (12.0-15.0); Mean Corpuscular HGB Conc 30.1 g/dl (32-36); Mean Corpuscular Volume 86.5 fl (80-100); Mean Platelet Volume 11.8 fl (7.4-10.4); Platelet Count Result 202 k/mm3 (150-375); Red Blood Count 4.58 M/mm3 (4.2-5.4); Red Cell Distribution Width 15.8 % (11.5-14.5); White Blood Count 7.9 K/mm3 (4.5-10.0)
[2020-02-11 08:16] LABS: Alanine Aminotransferase 13 U/L (4-35); Albumin Level 2.9 g/dL (3.5-5.1); Alkaline Phosphatase 42 U/L (38-126); Anion Gap 4 mmol/L (8-16); Aspartate Amino Transferase 26 U/L (14-36); Bilirubin,Total 0.4 mg/dL (0.2-1.3); Blood Urea Nitrogen 45 mg/dL (7-17); Calcium 8.6 mg/dL (8.4-10.2); Carbon Dioxide 28 mmol/L (22-30); Chloride 108 mmol/L (98-107); Estimated CRCL calculation 57 ml/min; Estimated Glomerular Filt Rate 49; Glucose 116 mg/dL (65-105); Lactate Dehydrogenase 777 U/L (313-618); Sodium 140 mmol/L (137-145)
[2020-02-11 08:52] LABS: Potassium 4.6 mmol/L (3.4-5.0)
[2020-02-11 09:03] LABS: Glucose Point of Care 101 (65-105)
[2020-02-11] MEDS: ENOXAPARIN 40 MG/0.4 ML SYRINGE SUB-Q (09:36)
[2020-02-11] MEDS: CLOPIDOGREL BISULFATE 75 MG TABLET PO (09:37)
[2020-02-11] MEDS: guaiFENesin 12 HR 600 MG TABCR PO ×2 (09:37→20:36)
[2020-02-11] MEDS: GABAPENTIN 300 MG CAPSULE PO ×3 (09:37→17:38)
[2020-02-11] MEDS: lisinopriL 20 MG TABLET 40 MG PO (09:37)
[2020-02-11] MEDS: ISOSORBIDE DINITRATE 10 MG TABLET 30 MG PO (09:37)
[2020-02-11] MEDS: DULoxetine HCL 20 MG CAPSULE.DR PO (09:37)
[2020-02-11] MEDS: ATORVASTATIN 40 MG TABLET PO (09:38)
[2020-02-11] MEDS: ASPIRIN 81 MG ENTERIC TABLET PO (09:38)
[2020-02-11] MEDS: FUROSEMIDE 20 MG TABLET PO (09:39)
[2020-02-11] MEDS: POTASSIUM CHLORIDE 20 MEQ TABLET.ER PO (09:39)
[2020-02-11] MEDS: METOPROLOL SUCCINATE EXT REL 50 MG TABCR PO (09:40)
[2020-02-11] MEDS: PANTOPRAZOLE 40 MG TABLET PO ×2 (09:40→20:36)
[2020-02-11] MEDS: INSULIN ASPART (*BKC) 100 UNITS/ML SUB-Q ×3 (09:41→17:40)
--- NOTE | 2020-02-11 10:08 | PM.IMPN ---
Progress Note: A&P Assessment and Plan (1) Acute respiratory failure with hypoxia: Code(s): J96.01 - Acute respiratory failure with hypoxia Status: Acute Assessment and Plan: At presentation was found to be hypoxic at 82%. Improved with O2 administration and she is currently maintaining adequate oxygen saturations in the upper 90s on 2L O2 per NC. She is not on chronic home oxygen. Suspect multifactorial cause to include pneumonia and pulmonary edema. Supplemental O2 as needed with goal saturation 92% or above. I have decreased her to 1L. Continue to wean to goal. Continue IV steroids, lasix, and bronchodilators Monitor respiratory status closely Consider home O2 eval tomorrow if still requiring supplemental O2 (2) Pneumonia due to 2019 novel coronavirus: Code(s): U07.1 - COVID-19; J12.89 - Other viral pneumonia Status: Acute Assessment and Plan: CXR is consistent with pneumonia. Tested positive for COVID-19 on 02/07/2020. She has remained afebrile. She is currently requiring 2 L O2 per nasal cannula and maintaining adequate oxygenation. Continue IV dexamethasone given oxygen requirements. Day 5 (started 02/07/20). Will continue to closely monitor her oxygen requirements and consider addition of remdesivir if any acute worsening. IV azithromycin and Rocephin discontinued on 02/08/2020 as superimposed bacterial infection is unlikely. Supportive care to include antipyretics, bronchodilators, and expectorants Trend acute phase reactants Continue isolation precautions (3) CHF (congestive heart failure): Code(s): I50.9 - Heart failure, unspecified Status: Acute Assessment and Plan: BNP 684 which is appropriate for her age. CXR showed evidence of possible pulmonary edema. She reports compliance with Lasix. Echo reviewed from June 2018 with EF 50-55% and grade I diastolic dysfunction. She was diuresed with IV Lasix. She appears euvolemic at this time. Repeat echo performed 02/09/20 which showed EF 55-60% and otherwise largely unchanged. Does not appear to be consistent with acute CHF exacerbation. Continue lasix 20 mg PO daily Heart healthy diet, daily weights, and monitor I&O (4) Type 2 diabetes mellitus with hyperglycemia: Code(s): E11.65 - Type 2 diabetes mellitus with hyperglycemia Status: Acute Assessment and Plan: Last A1c was 8.0 in November 2019. Home regimen consists of Lantus 50 units in the morning and 20 units in the evening. Blood sugars initially quite elevated, and likely worsened by IV steroids but have improved. Blood sugars evaluated today and stable at 116. Accuchecks ACHS, moderate dose SSI, and hypoglycemic protocol. Diabetic diet. Continue Lantus at 50 units qHS Continue 5 units bolus insulin scheduled with meals Monitor blood sugars closely and adjust as needed (5) Essential (primary) hypertension: Code(s): I10 - Essential (primary) hypertension Status: Acute Assessment and Plan: Blood pressure reviewed today and stable at 137/54. BP at presentation elevated in the 170s which has improved. Continue lisinopril and lasix Monitor blood pressure daily (6) Chronic kidney disease: Code(s): N18.9 - Chronic kidney disease, unspecified Status: Acute Assessment and Plan: She is in the process of establishing with nephrology. Review of prior labs shows baseline 1.1-1.2. Creatinine is 1.1 today. Monitor renal function closely and renally dose medications Subjective Date/time seen: 02/11/20 10:08 Interval history: Date of service: 02/11/2020 Tracy Thorpe is a 74 year old female with a history of CHF, CAD, COPD, HTN, T2DM and multiple other comorbidities who is seen in follow-up for COVID-19 pneumonia. she reports that she is feeling well today. She reports a dry cough and notes that she feels that she has mucus stuck in her her throat that she cannot cough u
[2020-02-11 14:38] LABS: Glucose Point of Care 130 (65-105)
[2020-02-11 18:28] LABS: Glucose Point of Care 135 (65-105)
[2020-02-11] MEDS: AMITRIPTYLINE HCL 25 MG TABLET PO (20:35)
[2020-02-11 20:46] LABS: Glucose Point of Care 225 (65-105)
[2020-02-11] MEDS: INSULIN GLARGINE (*BKC) 100 UNITS/ML 50 UNITS SUB-Q (21:21)
[2020-02-11] MEDS: ACETAMINOPHEN 325 MG TABLET 650 MG PO (21:53)
[2020-02-12] VITALS: BP 149/51; PULSE 55; RESP 16; TEMP 36.6; O2SAT 93
[2020-02-12 04:00] VITALS: BP 149/92; PULSE 61; RESP 16; TEMP 36.6; O2SAT 93
[2020-02-12] MEDS: LEVOTHYROXINE SODIUM 112 MCG TABLET PO (05:32)
[2020-02-12 06:11] LABS: Hematocrit 41.8 % (37.0-47.0); Mean Corpuscular HGB Conc 31.1 g/dl (32-36); Mean Corpuscular Hemoglobin 25.8 pg (26-34); Mean Corpuscular Volume 83.1 fl (80-100); Mean Platelet Volume 11.3 fl (7.4-10.4); Platelet Count Result 224 k/mm3 (150-375); Red Blood Count 5.03 M/mm3 (4.2-5.4); Red Cell Distribution Width 15.7 % (11.5-14.5); White Blood Count 9.3 K/mm3 (4.5-10.0)
[2020-02-12 06:18] LABS: Alanine Aminotransferase 14 U/L (4-35); Albumin Level 3.4 g/dL (3.5-5.1); Alkaline Phosphatase 61 U/L (38-126); Anion Gap 5 mmol/L (8-16); Aspartate Amino Transferase 30 U/L (14-36); Bilirubin,Total 0.4 mg/dL (0.2-1.3); Blood Urea Nitrogen 35 mg/dL (7-17); Calcium 9.1 mg/dL (8.4-10.2); Carbon Dioxide 31 mmol/L (22-30); Chloride 106 mmol/L (98-107); Estimated CRCL calculation 57 ml/min; Estimated Glomerular Filt Rate 49; Glucose 77 mg/dL (65-105); Sodium 142 mmol/L (137-145)
[2020-02-12 06:24] LABS: CRP 1.9 mg/dL (<1.0); Lactate Dehydrogenase 761 U/L (313-618)
[2020-02-12] MEDS: ACETAMINOPHEN 325 MG TABLET 650 MG PO (07:26)
[2020-02-12] MEDS: ALPRAZolam (*CRX) 0.25 MG TABLET PO (07:28)
[2020-02-12] MEDS: GLUCOSE ORAL GEL 15 GM OF GLUCSE IN 37.5 GM TUBE PO (08:22)
[2020-02-12] MEDS: lisinopriL 20 MG TABLET 40 MG PO (08:24)
[2020-02-12] MEDS: GABAPENTIN 300 MG CAPSULE PO ×3 (08:24→17:53)
[2020-02-12 08:25] VITALS: PULSE 85
[2020-02-12] MEDS: PANTOPRAZOLE 40 MG TABLET PO ×2 (08:25→20:09)
[2020-02-12] MEDS: POTASSIUM CHLORIDE 20 MEQ TABLET.ER PO (08:25)
[2020-02-12] MEDS: guaiFENesin 12 HR 600 MG TABCR PO ×2 (08:25→20:09)
[2020-02-12] MEDS: ISOSORBIDE DINITRATE 10 MG TABLET 30 MG PO (08:25)
[2020-02-12] MEDS: METOPROLOL SUCCINATE EXT REL 50 MG TABCR PO (08:25)
[2020-02-12] MEDS: CLOPIDOGREL BISULFATE 75 MG TABLET PO (08:26)
[2020-02-12] MEDS: DULoxetine HCL 20 MG CAPSULE.DR PO (08:26)
[2020-02-12] MEDS: ATORVASTATIN 40 MG TABLET PO (08:26)
[2020-02-12] MEDS: FUROSEMIDE 20 MG TABLET PO (08:26)
[2020-02-12] MEDS: ASPIRIN 81 MG ENTERIC TABLET PO (08:26)
[2020-02-12] MEDS: ENOXAPARIN 40 MG/0.4 ML SYRINGE SUB-Q (08:27)
[2020-02-12 09:21] LABS: Glucose Point of Care 111 (65-105)
[2020-02-12 12:00] VITALS: BP 98/77; PULSE 97; RESP 20; TEMP 36.2; O2SAT 95
--- NOTE | 2020-02-12 12:03 | PM.IMPN ---
Progress Note: A&P Assessment and Plan (1) Acute respiratory failure with hypoxia: Code(s): J96.01 - Acute respiratory failure with hypoxia Status: Acute Assessment and Plan: At presentation was found to be hypoxic at 82%. Hypoxia improved with O2 administration and she is currently maintaining adequate oxygen saturations in the upper 90s on 2L O2 per NC. She is not on chronic home oxygen. Suspect multifactorial cause to include pneumonia and pulmonary edema. Continue supplemental O2 as needed with goal saturation 92% or above. She was on room air yesterday evening and overnight and is back on 3 liters today after being very active and anxious per RN report. Continue IV steroids, lasix, and bronchodilators. Add remdesivir for COVID-19 treatment. Continue to monitor respiratory status closely and consider home oxygen evaluation tomorrow. (2) Pneumonia due to 2019 novel coronavirus: Code(s): U07.1 - COVID-19; J12.89 - Other viral pneumonia Status: Acute Assessment and Plan: CXR is consistent with pneumonia. COVID-19 testing was performed and positive on 02/07/2020. She is afebrile. She was on room air yesterday evening and overnight. She was anxious and active earlier today per RN reports and was placed back on 3 liters per nasal cannula. IV azithromycin and rocephin were discontinued 02/08/20 as superimposed bacterial infection felt unlikely. Plan to continue IV dexamethasone given ongoing oxygen requirements (day 6 - initiated 02/07/20). Add remdesivir given increasing oxygen requirements. Continue supportive care with antipyretics, bronchodilators, and expectorants. Continue to trend acute phase reactants and continue isolation precautions. (3) CHF (congestive heart failure): Code(s): I50.9 - Heart failure, unspecified Status: Acute Assessment and Plan: BNP 684 which is appropriate for her age. CXR showed evidence of possible pulmonary edema. She reports compliance with Lasix. Echo reviewed from June 2018 with EF 50-55% and grade I diastolic dysfunction. She was diuresed with IV Lasix initially and appears euvolemic at this time. Repeat echo performed 02/09/20 which showed EF 55-60% and otherwise largely unchanged. Clinical picture dose not appear consistent with acute CHF exacerbation. Continue lasix 20 mg PO daily. Continue heart healthy diet, daily weights, and monitor strict I&O. (4) Type 2 diabetes mellitus with hyperglycemia: Code(s): E11.65 - Type 2 diabetes mellitus with hyperglycemia Status: Acute Assessment and Plan: Last A1c was 8.0 in November 2019. Home regimen consists of Lantus 50 units in the morning and 20 units in the evening. Blood sugars were initially elevated and likely worsened by IV steroids. Blood sugars have improved significantly. Continue Accu-checks ACHS, moderate dose SSI, and hypoglycemic protocol. Continue diabetic diet. Continue Lantus at 50 units qHS. Continue 5 units bolus insulin scheduled with meals. Adjust treatment as indicated. (5) Essential (primary) hypertension: Code(s): I10 - Essential (primary) hypertension Status: Acute Assessment and Plan: Blood pressures were reviewed and reasonably controlled. Continue lisinopril and lasix. Continue to monitor blood pressures closely. (6) Chronic kidney disease: Code(s): N18.9 - Chronic kidney disease, unspecified Status: Acute Assessment and Plan: She is in the process of establishing with nephrology. Review of prior labs shows baseline 1.1-1.2. Creatinine is 1.1 and BUN 35. Monitor renal function closely and renally dose medications (7) Abdominal pain: Code(s): R10.9 - Unspecified abdominal pain Status: Acute Assessment and Plan: She reports diffuse abdominal pain and nausea. Will order CT abd/pelvis for further evaluation. Continue supportive care with antiemetics and analgesics as needed. Subje
[2020-02-12 12:25] LABS: Glucose Point of Care 141 (65-105)
[2020-02-12] MEDS: INSULIN ASPART (*BKC) 100 UNITS/ML SUB-Q (12:54)
[2020-02-12] MEDS: REMDESIVIR 200 MG/NS 250 ML 200 MG/250 ML BAG 250 MG IVPB (12:55)
[2020-02-12 16:00] VITALS: BP 112/62; PULSE 87; RESP 16; TEMP 36.6; O2SAT 90
[2020-02-12 18:51] LABS: Glucose Point of Care 146 (65-105)
[2020-02-12 20:00] VITALS: BP 124/65; PULSE 84; RESP 20; TEMP 37.1; O2SAT 93
[2020-02-12] MEDS: AMITRIPTYLINE HCL 25 MG TABLET PO (20:09)
[2020-02-12 20:11] LABS: Glucose Point of Care 138 (65-105)
[2020-02-12 23:43] LABS: Glucose Point of Care 63 (65-105)
[2020-02-13] VITALS (13 sets, daily range): BP systolic 136–160; BP diastolic 65–108; PULSE 71–124; RESP 18–22; TEMP 36.1–36.4; O2SAT 86–100; BMI 42.0
[2020-02-13] MEDS: LEVOTHYROXINE SODIUM 112 MCG TABLET PO (05:34)
[2020-02-13 06:49] LABS: Hematocrit 43.1 % (37.0-47.0); Mean Corpuscular HGB Conc 30.2 g/dl (32-36); Mean Corpuscular Hemoglobin 26.2 pg (26-34); Mean Corpuscular Volume 86.9 fl (80-100); Mean Platelet Volume 11.8 fl (7.4-10.4); Platelet Count Result 168 k/mm3 (150-375); Red Blood Count 4.96 M/mm3 (4.2-5.4); Red Cell Distribution Width 16.4 % (11.5-14.5); White Blood Count 5.9 K/mm3 (4.5-10.0)
[2020-02-13] MEDS: ACETAMINOPHEN 325 MG TABLET 650 MG PO ×2 (07:06→22:01)
[2020-02-13] MEDS: ALPRAZolam (*CRX) 0.25 MG TABLET PO ×2 (07:07→22:01)
[2020-02-13 07:21] LABS: Alanine Aminotransferase 14 U/L (4-35); Albumin Level 2.9 g/dL (3.5-5.1); Alkaline Phosphatase 48 U/L (38-126); Anion Gap 5 mmol/L (8-16); Aspartate Amino Transferase 34 U/L (14-36); Bilirubin,Total 0.6 mg/dL (0.2-1.3); Blood Urea Nitrogen 39 mg/dL (7-17); CRP 13.9 mg/dL (<1.0); Calcium 8.9 mg/dL (8.4-10.2); Carbon Dioxide 27 mmol/L (22-30); Chloride 109 mmol/L (98-107); Estimated CRCL calculation 63 ml/min; Estimated Glomerular Filt Rate 55; Glucose 99 mg/dL (65-105); Lactate Dehydrogenase 968 U/L (313-618); Magnesium 2.1 mg/dL (1.6-2.3); Potassium 4.7 mmol/L (3.4-5.0); Sodium 141 mmol/L (137-145)
[2020-02-13] MEDS: ISOSORBIDE DINITRATE 10 MG TABLET 30 MG PO (08:11)
[2020-02-13] MEDS: ENOXAPARIN 40 MG/0.4 ML SYRINGE SUB-Q (08:11)
[2020-02-13] MEDS: ASPIRIN 81 MG ENTERIC TABLET PO (08:12)
[2020-02-13] MEDS: POTASSIUM CHLORIDE 20 MEQ TABLET.ER PO (08:12)
[2020-02-13] MEDS: lisinopriL 20 MG TABLET 40 MG PO (08:12)
[2020-02-13] MEDS: PANTOPRAZOLE 40 MG TABLET PO ×2 (08:13→21:40)
[2020-02-13] MEDS: CLOPIDOGREL BISULFATE 75 MG TABLET PO (08:13)
[2020-02-13] MEDS: GABAPENTIN 300 MG CAPSULE PO ×3 (08:13→17:24)
[2020-02-13] MEDS: DULoxetine HCL 20 MG CAPSULE.DR PO (08:13)
[2020-02-13] MEDS: FUROSEMIDE 20 MG TABLET PO (08:13)
[2020-02-13 09:04] LABS: Glucose Point of Care 89 (65-105)
[2020-02-13 12:21] LABS: Glucose Point of Care 143 (65-105)
[2020-02-13] MEDS: DEXAMETHASONE SOD PHOS INJ 4 MG/ML VIAL 6 MG IV PUSH (12:27)
[2020-02-13] MEDS: REMDESIVIR 100 MG/NS 250 ML 100 MG/250 ML BAG 250 MG IVPB (12:28)
[2020-02-13] MEDS: INSULIN ASPART (*BKC) 100 UNITS/ML SUB-Q ×3 (12:28→17:22)
[2020-02-13] MEDS: METOPROLOL SUCCINATE EXT REL 50 MG TABCR PO (12:29)
[2020-02-13] MEDS: guaiFENesin 12 HR 600 MG TABCR PO ×2 (12:29→21:41)
[2020-02-13] MEDS: ATORVASTATIN 40 MG TABLET PO (12:29)
--- NOTE | 2020-02-13 13:35 | PCOTNOTE ---
Attempted to see patient this pm, however patient declined due to frequent diarrhea.
--- NOTE | 2020-02-13 15:11 | PM.IMPN ---
Progress Note: A&P Assessment and Plan (1) Acute respiratory failure with hypoxia: Code(s): J96.01 - Acute respiratory failure with hypoxia Status: Acute Assessment and Plan: At presentation was found to be hypoxic at 82%. Hypoxia improved with O2 administration. She is not on chronic home oxygen but was on 2 liters in the past and her daughter is not sure why she stopped using oxygen. I suspect that her hypoxia is likely secondary to COVID-19 pneumonia with underlying COPD, CHF, and aortic stenosis. Continue supplemental O2 as needed with goal saturation 92% or above. Wean as tolerated. 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 Continue IV steroids, IV remdesivir (started 02/11) lasix, and bronchodilators. Continue to monitor respiratory status closely. (2) Pneumonia due to 2019 novel coronavirus: Code(s): U07.1 - COVID-19; J12.89 - Other viral pneumonia Status: Acute Assessment and Plan: CXR is consistent with pneumonia. COVID-19 testing was performed and positive on 02/07/2020. She is afebrile. 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 She was anxious and active earlier per RN reports and was placed back on 3 liters per nasal cannula 02/11. She is on 2 liters today with oxygen saturation of 97%. IV azithromycin and rocephin were discontinued 02/08/20 as superimposed bacterial infection felt unlikely. Plan to continue IV dexamethasone given ongoing oxygen requirements (day 7 - initiated 02/07/20). Add remdesivir (day 05/30 - initiated 02/11) given increasing oxygen requirements. Continue supportive care with antipyretics, bronchodilators, and expectorants. Continue to trend acute phase reactants and continue isolation precautions. CRP increased to 13.9 today. Will monitor closely. (3) CHF (congestive heart failure): Code(s): I50.9 - Heart failure, unspecified Status: Acute Assessment and Plan: BNP is 684 which is appropriate for her age. CXR showed evidence of possible pulmonary edema. She reports compliance with Lasix. Echo reviewed from June 2018 with EF 50-55% and grade I diastolic dysfunction. She was diuresed with IV Lasix initially and appears euvolemic at this time. Repeat echo performed 02/09/20 which showed EF 55-60% and otherwise largely unchanged. Clinical picture dose not appear consistent with acute CHF exacerbation. Continue lasix 20 mg PO daily. Continue heart healthy diet, daily weights, and monitor strict I&O. (4) Type 2 diabetes mellitus with hyperglycemia: Code(s): E11.65 - Type 2 diabetes mellitus with hyperglycemia Status: Acute Assessment and Plan: Last A1c was 8.0 in November 2019. Home regimen consists of Lantus 50 units in the morning and 20 units in the evening. Blood sugars were initially elevated and likely worsened by IV steroids. Blood sugars have improved. Continue Accu-checks ACHS, moderate dose SSI, and hypoglycemic protocol. Continue diabetic diet. Continue Lantus at 50 units qHS. Continue 5 units bolus insulin scheduled with meals. Adjust treatment as indicated. (5) Essential (primary) hypertension: Code(s): I10 - Essential (primary) hypertension Status: Acute Assessment and Plan: Blood pressures were reviewed and are reasonably controlled. Most recent BP was 141/65. Continue lisinopril and lasix. Continue to monitor blood pressures closely. (6) Chronic kidney disease: Code(s): N18.9 - Chronic kidney disease, unspecified Status: Acute Assessment and Plan: She is in the process of establishing with nephrology. Review of prior labs shows baseline 1.1-1.2. Creatinine is 1.0 and BUN 39. Monitor renal function closely and renally dose medications (7) Abdominal pain: Code(s): R10.9 - Unspecified abdominal pain Status: Acute Assessment and Plan: She reports d
[2020-02-13] MEDS: SACCHAROMYCES BOULARDII 250 MG CAPSULE PO (17:18)
[2020-02-13 17:26] LABS: Glucose Point of Care 251 (65-105)
[2020-02-13] MEDS: INSULIN GLARGINE (*BKC) 100 UNITS/ML 50 UNITS SUB-Q (21:41)
[2020-02-13] MEDS: AMITRIPTYLINE HCL 25 MG TABLET PO (21:41)
[2020-02-13 22:11] LABS: Glucose Point of Care 315 (65-105)
[2020-02-14] VITALS (9 sets, daily range): BP systolic 140–185; BP diastolic 74–101; PULSE 68–86; RESP 20–24; TEMP 36.4–36.7; O2SAT 91–97
[2020-02-14] MEDS: LEVOTHYROXINE SODIUM 112 MCG TABLET PO (05:54)
[2020-02-14 06:15] LABS: Alanine Aminotransferase 15 U/L (4-35)
[2020-02-14] MEDS: ACETAMINOPHEN 325 MG TABLET 650 MG PO ×3 (06:54→16:57)
[2020-02-14 08:24] LABS: Estimated CRCL calculation 58 ml/min; Estimated Glomerular Filt Rate 49
[2020-02-14 08:37] LABS: Glucose Point of Care 133 (65-105)
[2020-02-14] MEDS: SACCHAROMYCES BOULARDII 250 MG CAPSULE PO ×2 (09:05→16:57)
[2020-02-14] MEDS: CLOPIDOGREL BISULFATE 75 MG TABLET PO (09:05)
[2020-02-14] MEDS: GABAPENTIN 300 MG CAPSULE PO ×3 (09:05→16:56)
[2020-02-14] MEDS: ENOXAPARIN 40 MG/0.4 ML SYRINGE SUB-Q (09:05)
[2020-02-14] MEDS: lisinopriL 20 MG TABLET 40 MG PO (09:06)
[2020-02-14] MEDS: DULoxetine HCL 20 MG CAPSULE.DR PO (09:06)
[2020-02-14] MEDS: ASPIRIN 81 MG ENTERIC TABLET PO (09:06)
[2020-02-14] MEDS: POTASSIUM CHLORIDE 20 MEQ TABLET.ER PO (09:06)
[2020-02-14] MEDS: METOPROLOL SUCCINATE EXT REL 50 MG TABCR PO (09:06)
[2020-02-14] MEDS: ISOSORBIDE DINITRATE 10 MG TABLET 30 MG PO (09:06)
[2020-02-14] MEDS: FUROSEMIDE 20 MG TABLET PO (09:06)
[2020-02-14] MEDS: DEXAMETHASONE SOD PHOS INJ 4 MG/ML VIAL 6 MG IV PUSH (09:07)
[2020-02-14] MEDS: ATORVASTATIN 40 MG TABLET PO (09:07)
[2020-02-14] MEDS: PANTOPRAZOLE 40 MG TABLET PO ×2 (09:07→20:16)
[2020-02-14] MEDS: INSULIN ASPART (*BKC) 100 UNITS/ML SUB-Q ×4 (09:08→18:55)
[2020-02-14 09:32] LABS: Hematocrit 43.9 % (37.0-47.0); Hemoglobin 13.5 g/dL (12.0-15.0); Mean Corpuscular HGB Conc 30.8 g/dl (32-36); Mean Corpuscular Hemoglobin 26.1 pg (26-34); Mean Corpuscular Volume 84.7 fl (80-100); Mean Platelet Volume 12.1 fl (7.4-10.4); Platelet Count Result 247 k/mm3 (150-375); Red Blood Count 5.18 M/mm3 (4.2-5.4); Red Cell Distribution Width 16.3 % (11.5-14.5); White Blood Count 9.9 K/mm3 (4.5-10.0)
[2020-02-14 09:46] LABS: Magnesium 2.1 mg/dL (1.6-2.3)
[2020-02-14 09:48] LABS: Alanine Aminotransferase 16 U/L (4-35); Albumin Level 3.1 g/dL (3.5-5.1); Alkaline Phosphatase 65 U/L (38-126); Anion Gap 4 mmol/L (8-16); Aspartate Amino Transferase 30 U/L (14-36); Bilirubin,Total 0.5 mg/dL (0.2-1.3); Blood Urea Nitrogen 39 mg/dL (7-17); CRP 6.8 mg/dL (<1.0); Calcium 9.3 mg/dL (8.4-10.2); Carbon Dioxide 29 mmol/L (22-30); Chloride 108 mmol/L (98-107); Estimated CRCL calculation 58 ml/min; Estimated Glomerular Filt Rate 49; Glucose 173 mg/dL (65-105); Lactate Dehydrogenase 970 U/L (313-618); Potassium 4.3 mmol/L (3.4-5.0); Sodium 141 mmol/L (137-145)
[2020-02-14] MEDS: guaiFENesin 12 HR 600 MG TABCR PO ×2 (10:10→20:16)
[2020-02-14] MEDS: REMDESIVIR 100 MG/NS 250 ML 100 MG/250 ML BAG 250 MG IVPB (12:25)
[2020-02-14 12:32] LABS: Glucose Point of Care 172 (65-105)
--- NOTE | 2020-02-14 14:39 | PM.IMPN ---
Progress Note: A&P Assessment and Plan (1) Acute respiratory failure with hypoxia: Code(s): J96.01 - Acute respiratory failure with hypoxia Status: Acute Assessment and Plan: At presentation to the ED, she was found to be hypoxic at 82%. Hypoxia improved with O2 administration. She is not on chronic home oxygen but was on 2 liters in the past and her daughter is not sure why she stopped using oxygen. I suspect that her hypoxia is likely secondary to COVID-19 pneumonia with underlying COPD, CHF, and aortic stenosis. Continue supplemental O2 as needed with goal saturation 92% or above. Wean as tolerated. Continue IV steroids, IV remdesivir (started 02/11) lasix, and bronchodilators. Continue to monitor respiratory status closely. She was weaned to room air today at rest and still requires oxygen with exertion. She will need home oxygen evaluation prior to discharge. (2) Pneumonia due to 2019 novel coronavirus: Code(s): U07.1 - COVID-19; J12.89 - Other viral pneumonia Status: Acute Assessment and Plan: CXR is consistent with pneumonia. COVID-19 testing was performed and positive on 02/07/2020. She is afebrile. IV azithromycin and rocephin were discontinued 02/08/20 as superimposed bacterial infection was felt unlikely. Plan to continue IV dexamethasone given ongoing oxygen requirements (day 8 - initiated 02/07/20). Remdesivir was added (day 3/5 - initiated 02/11) given increased oxygen requirements on 02/11. Continue supportive care with antipyretics, bronchodilators, and expectorants. Continue to trend acute phase reactants and continue isolation precautions. CRP improving to 6.8 today. Will monitor closely. She is doing much better and she was weaned to room air at rest today. She is still requiring oxygen with exertion and we will plan to perform home oxygen evaluation on day 5 of remdesivir if she continues to improve. (3) CHF (congestive heart failure): Code(s): I50.9 - Heart failure, unspecified Status: Acute Assessment and Plan: BNP is 684 which is appropriate for her age. CXR showed evidence of possible pulmonary edema. She reports compliance with Lasix. Echo reviewed from June 2018 with EF 50-55% and grade I diastolic dysfunction. She was diuresed with IV Lasix initially and appears euvolemic. Repeat echo performed 02/09/20 showed EF 55-60% and otherwise largely unchanged. Clinical picture dose not appear consistent with acute CHF exacerbation. Continue lasix 20 mg PO daily. Continue heart healthy diet, daily weights, and monitor strict I&O. (4) Type 2 diabetes mellitus with hyperglycemia: Code(s): E11.65 - Type 2 diabetes mellitus with hyperglycemia Status: Acute Assessment and Plan: Last A1c was 8.0 in November 2019. Home regimen consists of Lantus 50 units in the morning and 20 units in the evening. Blood sugars were initially elevated and likely worsened by IV steroids. Blood sugars have improved with two isolated elevated blood sugars of 251 and 315 yesterday evening. Blood sugars are at target today. Continue Accu-checks ACHS, moderate dose SSI, and hypoglycemic protocol. Continue diabetic diet. Continue Lantus at 50 units qHS. Continue 5 units bolus insulin scheduled with meals. Adjust treatment as indicated. (5) Essential (primary) hypertension: Code(s): I10 - Essential (primary) hypertension Status: Acute Assessment and Plan: Blood pressures were reviewed and are elevated above target. Most recent BP was 142/79. Continue, metoprolol, lisinopril and lasix. Continue to monitor blood pressures closely. Will add low dose amlodipine due to elevation. (6) Chronic kidney disease: Code(s): N18.9 - Chronic kidney disease, unspecified Status: Acute Assessment and Plan: She is in the process of establishing with nephrology. Review of prior labs shows baseline 1.1-1.2. Creatinine is 1.0 and BUN 39. Monitor re
[2020-02-14] MEDS: LIDOCAINE 5% PATCH 1 PATCH TRANSDERM (16:56)
[2020-02-14 18:10] LABS: Glucose Point of Care 298 (65-105)
[2020-02-14] MEDS: AMITRIPTYLINE HCL 25 MG TABLET PO (20:16)
[2020-02-14] MEDS: INSULIN GLARGINE (*BKC) 100 UNITS/ML 50 UNITS SUB-Q (20:18)
[2020-02-14 21:08] LABS: Glucose Point of Care 279 (65-105)
[2020-02-15] VITALS (10 sets, daily range): BP systolic 140–190; BP diastolic 70–101; PULSE 63–90; RESP 16–22; TEMP 36.4–36.7; O2SAT 91–97
[2020-02-15] MEDS: LEVOTHYROXINE SODIUM 112 MCG TABLET PO (05:36)
[2020-02-15 06:20] LABS: Alanine Aminotransferase 13 U/L (4-35); Anion Gap 6 mmol/L (8-16); Blood Urea Nitrogen 39 mg/dL (7-17); Carbon Dioxide 27 mmol/L (22-30); Chloride 109 mmol/L (98-107); Estimated CRCL calculation 57 ml/min; Estimated Glomerular Filt Rate 49; Glucose 151 mg/dL (65-105); Lactate Dehydrogenase 861 U/L (313-618); Potassium 4.2 mmol/L (3.4-5.0); Sodium 142 mmol/L (137-145)
--- NOTE | 2020-02-15 07:55 | PC.NURSE ---
was called to this room by MARKETING TECHNOLOGY SPECIALIST because of spo2 of 83% on 1 L of o2. I entered the room and pt was breathing approx 24 R. BP 190/80. O2 was increased by 1L increments up to 5L NC. Spo2 increased to 91%. Pt resp decreased to 22. Called and notified Sarah VALLEJO.No new orders at this time. WIll continue to monitor.
[2020-02-15] MEDS: ALBUTEROL SULFATE (*SP) AEROSOL 1 PUFF 4 PUFF INHALATION (08:20)
[2020-02-15 10:02] LABS: Glucose Point of Care 126 (65-105)
[2020-02-15] MEDS: LIDOCAINE 5% PATCH 1 PATCH TRANSDERM (10:04)
[2020-02-15] MEDS: DEXAMETHASONE SOD PHOS INJ 4 MG/ML VIAL 6 MG IV PUSH (10:05)
[2020-02-15] MEDS: ENOXAPARIN 40 MG/0.4 ML SYRINGE SUB-Q (10:05)
[2020-02-15] MEDS: INSULIN ASPART (*BKC) 100 UNITS/ML SUB-Q ×4 (10:05→18:12)
[2020-02-15] MEDS: PANTOPRAZOLE 40 MG TABLET PO ×2 (10:06→20:30)
[2020-02-15] MEDS: METOPROLOL SUCCINATE EXT REL 50 MG TABCR PO (10:06)
[2020-02-15] MEDS: ATORVASTATIN 40 MG TABLET PO (10:06)
[2020-02-15] MEDS: ASPIRIN 81 MG ENTERIC TABLET PO (10:06)
[2020-02-15] MEDS: lisinopriL 20 MG TABLET 40 MG PO (10:06)
[2020-02-15] MEDS: FUROSEMIDE 20 MG TABLET PO (10:07)
[2020-02-15] MEDS: GABAPENTIN 300 MG CAPSULE PO ×3 (10:07→18:13)
[2020-02-15] MEDS: ISOSORBIDE DINITRATE 10 MG TABLET 30 MG PO (10:07)
[2020-02-15] MEDS: guaiFENesin 12 HR 600 MG TABCR PO ×2 (10:07→20:30)
[2020-02-15] MEDS: CLOPIDOGREL BISULFATE 75 MG TABLET PO (10:07)
[2020-02-15] MEDS: POTASSIUM CHLORIDE 20 MEQ TABLET.ER PO (10:07)
[2020-02-15] MEDS: DULoxetine HCL 20 MG CAPSULE.DR PO (10:07)
[2020-02-15] MEDS: SACCHAROMYCES BOULARDII 250 MG CAPSULE PO ×3 (10:08→18:12)
[2020-02-15] MEDS: amLODIPine BESYLATE 5 MG TABLET PO (10:08)
[2020-02-15] MEDS: REMDESIVIR 100 MG/NS 250 ML 100 MG/250 ML BAG 250 MG IVPB (13:12)
--- NOTE | 2020-02-15 14:33 | PM.IMPN ---
Progress Note: A&P Assessment and Plan (1) Acute respiratory failure with hypoxia: Code(s): J96.01 - Acute respiratory failure with hypoxia Status: Acute Assessment and Plan: At presentation to the ED, she was found to be hypoxic at 82%. Hypoxia improved with O2 administration. She is not on chronic home oxygen but was on 2 liters in the past and her daughter is not sure why she stopped using oxygen. I suspect that her hypoxia is likely secondary to COVID-19 pneumonia with underlying COPD, CHF, and aortic stenosis. Continue supplemental O2 as needed with goal saturation 92% or above. Wean as tolerated. Continue IV steroids, IV remdesivir (started 02/11) lasix, and bronchodilators. Continue to monitor respiratory status closely. She is doing well on room air at rest but requires oxygen with exertion and will need home oxygen evaluation tomorrow. (2) Pneumonia due to 2019 novel coronavirus: Code(s): U07.1 - COVID-19; J12.89 - Other viral pneumonia Status: Acute Assessment and Plan: CXR is consistent with pneumonia. COVID-19 testing was performed and positive on 02/07/2020. She is afebrile. IV azithromycin and rocephin were discontinued 02/08/20 as superimposed bacterial infection was felt unlikely. Plan to continue IV dexamethasone given ongoing oxygen requirements (day 01/02 - initiated 02/07/20 - she can take oral once finished with remdesivir). Remdesivir was added (day07/28 - initiated 02/11) given increased oxygen requirements on 02/11. She is doing very well. Continue supportive care with antipyretics, bronchodilators, and expectorants. Continue to trend acute phase reactants and continue isolation precautions. CRP improving to 6.8 today. Will monitor closely. Will plan for home oxygen evaluation tomorrow as she will likely need oxygen with exertion and notes her oxygen saturations were dropping with exertion even prior to COVID but she was trying to avoid oxygen. (3) CHF (congestive heart failure): Code(s): I50.9 - Heart failure, unspecified Status: Acute Assessment and Plan: BNP is 684 which is appropriate for her age. CXR showed evidence of possible pulmonary edema. She reports compliance with Lasix. Echo reviewed from June 2018 with EF 50-55% and grade I diastolic dysfunction. She was diuresed with IV Lasix initially and appears euvolemic. Repeat echo performed 02/09/20 showed EF 55-60% and otherwise largely unchanged. Clinical picture dose not appear consistent with acute CHF exacerbation. Continue lasix 20 mg PO daily. Continue heart healthy diet, daily weights, and monitor strict I&O. (4) Type 2 diabetes mellitus with hyperglycemia: Code(s): E11.65 - Type 2 diabetes mellitus with hyperglycemia Status: Acute Assessment and Plan: Last A1c was 8.0 in November 2019. Home regimen consists of Lantus 50 units in the morning and 20 units in the evening. Blood sugars were initially elevated and likely worsened by IV steroids. Blood sugars fluctuate with occasional elevation. Continue Accu-checks ACHS, moderate dose SSI, and hypoglycemic protocol. Continue diabetic diet. Continue Lantus at 50 units qHS. Add lantus 10 units in the morning. Continue 5 units bolus insulin scheduled with meals. Adjust treatment as indicated. (5) Essential (primary) hypertension: Code(s): I10 - Essential (primary) hypertension Status: Acute Assessment and Plan: Blood pressures were reviewed and are elevated above target. Continue, metoprolol, lisinopril and lasix. Amlodipine was added given persistent BP elevation and increased to 5mg today. Continue to monitor blood pressures closely. (6) Chronic kidney disease: Code(s): N18.9 - Chronic kidney disease, unspecified Status: Acute Assessment and Plan: She is in the process of establishing with nephrology. Review of prior labs shows baseline 1.1-1.2. Creatinine is 1.1 and BUN 39. Monitor renal fun
[2020-02-15 18:52] LABS: Glucose Point of Care 153 (65-105)
[2020-02-15] MEDS: AMITRIPTYLINE HCL 25 MG TABLET PO (20:30)
[2020-02-15] MEDS: INSULIN GLARGINE (*BKC) 100 UNITS/ML 50 UNITS SUB-Q (20:30)
[2020-02-15] MEDS: ALPRAZolam (*CRX) 0.25 MG TABLET PO (20:34)
[2020-02-15] MEDS: ACETAMINOPHEN 325 MG TABLET 650 MG PO (21:38)
[2020-02-15 23:12] LABS: Glucose Point of Care 337 (65-105)
[2020-02-15 23:12] LABS: Glucose Point of Care 288 (65-105)
[2020-02-16] VITALS (8 sets, daily range): BP systolic 111–151; BP diastolic 67–102; PULSE 69–111; RESP 20–22; TEMP 36.5–36.7; O2SAT 75–95
[2020-02-16] MEDS: LEVOTHYROXINE SODIUM 112 MCG TABLET PO (06:24)
[2020-02-16 06:41] LABS: Alanine Aminotransferase 13 U/L (4-35); Anion Gap 5 mmol/L (8-16); Blood Urea Nitrogen 35 mg/dL (7-17); CRP 3.5 mg/dL (<1.0); Carbon Dioxide 28 mmol/L (22-30); Chloride 108 mmol/L (98-107); Estimated CRCL calculation 62 ml/min; Estimated Glomerular Filt Rate 55; Glucose 160 mg/dL (65-105); Lactate Dehydrogenase 746 U/L (313-618); Potassium 4.3 mmol/L (3.4-5.0); Sodium 141 mmol/L (137-145)
[2020-02-16] MEDS: ASPIRIN 81 MG ENTERIC TABLET PO (08:46)
[2020-02-16] MEDS: ATORVASTATIN 40 MG TABLET PO (08:46)
[2020-02-16] MEDS: DEXAMETHASONE SOD PHOS INJ 4 MG/ML VIAL 6 MG IV PUSH (08:46)
[2020-02-16] MEDS: amLODIPine BESYLATE 5 MG TABLET PO (08:46)
[2020-02-16] MEDS: CLOPIDOGREL BISULFATE 75 MG TABLET PO (08:46)
[2020-02-16] MEDS: DULoxetine HCL 20 MG CAPSULE.DR PO (08:47)
[2020-02-16] MEDS: ENOXAPARIN 40 MG/0.4 ML SYRINGE SUB-Q (08:47)
[2020-02-16] MEDS: FUROSEMIDE 20 MG TABLET PO (08:47)
[2020-02-16] MEDS: guaiFENesin 12 HR 600 MG TABCR PO (08:48)
[2020-02-16] MEDS: GABAPENTIN 300 MG CAPSULE PO ×2 (08:48→12:01)
[2020-02-16] MEDS: ISOSORBIDE DINITRATE 10 MG TABLET 30 MG PO (08:49)
[2020-02-16] MEDS: lisinopriL 20 MG TABLET 40 MG PO (08:49)
[2020-02-16] MEDS: LIDOCAINE 5% PATCH 1 PATCH TRANSDERM (08:49)
[2020-02-16] MEDS: METOPROLOL SUCCINATE EXT REL 50 MG TABCR PO (08:50)
[2020-02-16] MEDS: PANTOPRAZOLE 40 MG TABLET PO (08:51)
[2020-02-16] MEDS: SACCHAROMYCES BOULARDII 250 MG CAPSULE PO ×2 (08:51→12:01)
[2020-02-16] MEDS: POTASSIUM CHLORIDE 20 MEQ TABLET.ER PO (08:51)
[2020-02-16] MEDS: INSULIN GLARGINE (*BKC) 100 UNITS/ML 10 UNITS SUB-Q (08:53)
[2020-02-16] MEDS: INSULIN ASPART (*BKC) 100 UNITS/ML SUB-Q ×2 (08:54→12:15)
[2020-02-16 09:13] LABS: Glucose Point of Care 122 (65-105)
[2020-02-16] MEDS: REMDESIVIR 100 MG/NS 250 ML 100 MG/250 ML BAG 250 MG IVPB (12:01)
--- NOTE | 2020-02-16 12:32 | PM.DS ---
DS: Admitting Diagnosis Admitting Diagnosis Admitting Diagnosis: dyspnea, chf DS: Discharge Diagnosis Discharge Diagnosis (1) Acute respiratory failure with hypoxia: Code(s): J96.01 - Acute respiratory failure with hypoxia Status: Acute Assessment and Plan: Discharge Summary (Date of service 02/16/20): Mrs. Thorpe is a 74 y.o. female with PMH significant for aortic stenosis, CAD, CHF, COPD, CKD, IDDM, HTN, hypothyroidism who presented to the emergency department via EMS from [facility] for the evaluation of shortness of breath. She reported progressive dyspnea on exertion for 2-3 days prior to admission with associated chills and cough. At presentation to the ED, she was found to be hypoxic at 82%. Hypoxia rapidly improved with oxygen. CBC demonstrated normal WBC with neutrophil predominance and low lymphocytes, electrolytes were stable, ABG showed elevated pO2 and was otherwise normal, BNP 684, and CXR demonstrated diffuse lung disease, worst in mid and lower lung zones consistent with pneumonia and/or pulmonary edema. She received IV dexamethasone, azithromycin, rocephin, and 40 mg IV lasix. She was admitted under isolation and tested for COVID. COVID-19 testing was positive on 02/07/2020. IV azithromycin and rocephin were discontinued 02/08/20 as superimposed bacterial infection was felt unlikely. IV dexamethasone was continued given ongoing oxygen requirements and she received 10 days of treatment. Remdesivir was initiated 02/12/20 given increased oxygen requirements and she completed 5 days of therapy. Supportive care was continued including antipyretics, bronchodilators, and expectorants. Her symptoms improved significantly. She underwent home oxygen evaluation 02/15 and qualified for 1 liter of oxygen at rest and 3 liters of oxygen with activity. She and her daughter reported that she was on 2 liters oxygen per nasal cannula in the past and they were unsure why it was discontinued. She noted that her oxygen saturation did drop frequently with exertion even prior to her COVID infection, requiring her to take breaks and perform deep breathing, but she was trying to avoid going back on oxygen. She felt much better and was discharged in hemodynamically stable condition on 02/16/20. (2) Pneumonia due to 2019 novel coronavirus: Code(s): U07.1 - COVID-19; J12.89 - Other viral pneumonia Status: Acute Assessment and Plan: As above. (3) CHF (congestive heart failure): Code(s): I50.9 - Heart failure, unspecified Status: Acute Assessment and Plan: BNP was 684 which is appropriate for her age. CXR showed evidence of possible pulmonary edema. She reported compliance with Lasix. Echo was reviewed from June 2018 with EF 50-55% and grade I diastolic dysfunction. She was diuresed with IV Lasix initially and subsequently appeared euvolemic. Repeat echo performed 02/09/20 showed EF 55-60% and otherwise largely unchanged. Her PO lasix was continued. (4) Type 2 diabetes mellitus with hyperglycemia: Code(s): E11.65 - Type 2 diabetes mellitus with hyperglycemia Status: Acute Assessment and Plan: Last A1c was 8.0 in November 2019. Home regimen consists of Lantus 50 units in the morning and 20 units in the evening. Blood sugars were initially elevated and likely worsened by IV steroids. Accu-checks ACHS, moderate dose SSI, and hypoglycemic protocol were continued. (5) Essential (primary) hypertension: Code(s): I10 - Essential (primary) hypertension Status: Acute Assessment and Plan: Blood pressures were reviewed and elevated. Metoprolol, lisinopril and lasix were continued and amlodipine was added. (6) Chronic kidney disease: Code(s): N18.9 - Chronic kidney disease, unspecified Status: Acute Assessment and Plan: She is in the process of establishing with nephrology. Review of prior labs shows baseline 1.1-1.2. Cre
[2020-02-16 12:51] LABS: Glucose Point of Care 180 (65-105)
[2020-02-16 13:34] LABS: SARS-CoV-2 RNA PCR Positive
--- NOTE | 2020-02-16 14:22 | HOMEO2EVAL ---
Home Oxygen Evaluation RC: Home Oxygen (O2) Evaluation Start: 02/16/20 07:53 Freq: ONCE Status: Active Protocol: RPE Activity Type Activity Date Activity User E-Sign Co-Sign Detail Recorded Client Recorded Date Recorded By Document 02/16/20 13:00 TJT [email or web address] 02/16/20 14:10 TJT Document 02/16/20 13:05 TJT [email or web address] 02/16/20 14:12 TJT Document 02/16/20 13:10 TJT [email or web address] 02/16/20 14:18 TJT 02/16/20 02/16/20 02/16/20 13:00 13:05 13:10 Home O2 Evaluation Test Phase Resting Resting Exercise Oxygen Delivery Room Air Nasal Cannula Nasal Cannula Oxygen Flow Rate (L/min) 1 1 Fraction of Inspired Oxygen (%) 21 24 24 Pulse Oximetry (90-100 %) 86 L 94 75 L Pulse Rate (60-100 beats/min) 81 77 90 Activity Tolerance Poor Fair Poor Rating of Perceived Dyspnea (PD) +3 Moderate +1 Mild, +3 Moderate Difficulty, But Noticeable to Difficulty, But Can Continue the Participant Can Continue but Not to an Observer Rate of Perceived Exertion (PE) 6 Very, very light Ambulation Distance (feet) 5 Home Oxygen Evaluation Comments Pt sats dropped to 75%, on 1L NC when walking to commode with help. Pt increased to 3L NC and sats increased to 94 -95% Treatment Charges O2 Evaluation
--- NOTE | 2020-02-16 14:29 | PCRCNOTE ---
Home O2 Evaluation Complete. Pt requires 1L O2 per NC at rest, and 3L O2 per NC with activity. Spoke with Juliano at [facility].
[2020-02-16 14:40] LABS: Add Urine Microscopic? YES; Appearance Urine Clear (Clear); Bilirubin Urine Negative (Negative); Blood Urine Negative (Negative); Color Urine Straw (Yellow); Glucose Urine UA Negative (Negative); Ketones Urine Negative (Negative); Leukocyte Esterase Ur Negative LEU/UL (Negative); Nitrate Urine Negative (Negative); Protein Urine 1+ mg/dL (Negative); Specific Grav Ur 1.013 (1.001-1.035); Squamous Epithelial Cell Urine Rare /hpf (Few); Urobilinogen Urine Negative mg/dL (<2.0)
[2020-03-27 13:20] LABS: Pneumococcal Antigen Urine Not Detected
[2020-03-27 13:24] LABS: Legionella pneumophila Ag Ur Not Detected
== END 2020-02-16 17:15 | DRG 177 ==
LOC: ANHED 22:18 → ANH3MEDSUR 23:30
PROVIDERS: Emergency Medicine; Family Medicine; Physician Assistant; Admitting Provider Internal Medicine; Emergency Provider Emergency Medicine; PCP Internal Medicine; Visit Provider Physician Assistant
DX: U07.1 COVID-19 (principal); J12.89 Other viral pneumonia; J96.01 Acute respiratory failure with hypoxia; I13.0 Hypertensive heart and chronic kidney disease with heart failure and stage 1 through stage 4 chronic kidney disease, or unspecified chronic kidney disease; Z68.41 Body mass index [BMI] 40.0-44.9, adult; I50.32 Chronic diastolic (congestive) heart failure; J44.9 Chronic obstructive pulmonary disease, unspecified; E11.22 Type 2 diabetes mellitus with diabetic chronic kidney disease; N18.9 Chronic kidney disease, unspecified; E11.65 Type 2 diabetes mellitus with hyperglycemia; R10.9 Unspecified abdominal pain; L72.3 Sebaceous cyst; F41.8 Other specified anxiety disorders; D64.9 Anemia, unspecified; M19.90 Unspecified osteoarthritis, unspecified site; I25.10 Atherosclerotic heart disease of native coronary artery without angina pectoris; E66.01 Morbid (severe) obesity due to excess calories; I35.0 Nonrheumatic aortic (valve) stenosis; Z86.73 Personal history of transient ischemic attack (TIA), and cerebral infarction without residual deficits; Z90.49 Acquired absence of other specified parts of digestive tract; Z95.5 Presence of coronary angioplasty implant and graft
CPT/HCPCS: 36415; 36600; 71046; 74176; 76882; 80048; 80053; 81001; 82565; 82728; 82805; 83615; 83735; 83880; 84460; 84484; 85025; 85027; 86140; 87040; 87449; 87635; 87899; 93005; 93306; 93970; 94618; 94640; 96374; 96375; 97110; 97161; 97165; 97530; 97535; 99285; A9270; C9803; J0456; J0696; J1100; J1650; J1815; J1940; J7120; U0003

== ENCOUNTER 2020-06-27 18:32 | Inpatient (IN) | payer MEDICARE, MEDICAID, SELFPAY ==
[2020-06-27] VITALS (10 sets, daily range): BP systolic 116–146; BP diastolic 65–119; PULSE 62–77; RESP 13–19; TEMP 36.1; O2SAT 91–100
--- NOTE | ~2020-06-27 | XR_ITS ---
XR chest 1V portable 06/30/2020 18:03 Indication: Wheezing and shortness of breath Procedure: AP portable chest Comparison: Comparison to multiple prior studies sequentially, with oldest reviewed study dated 09/2018. Findings: Extensive bilateral airspace disease. Cardiomegaly. There is atherosclerosis. No significan t effusion. No pneumothorax. Impression: 1: Extensive bilateral airspace disease may represent pneumonia or edema. 2: Cardiomegaly. Reviewed, dictated and finalized at location A. GRAPHIC INSTRUMENT SUPERVISOR Impression: 1: Extensive bilateral airspace disease may represent pneumonia or edema. 2: Cardiomegaly.
--- NOTE | ~2020-06-27 | XR_ITS ---
EXAMINATION: XR knee RT 2V EXAM DATE: 06/28/2020 13:27 INDICATION: No known recent injury provided at this time. Pain of the right knee. TECHNIQUE: Frontal and lateral projections of the right knee. Comparison is made to prior examinatio n from 09/28/2015. FINDINGS: There is moderate right patellofemoral and medial tibiofemoral primary osteoarthritis. No joint effusion. Mild popliteal arterial sclerosis. Bilateral meniscal faint chondrocalcinosis. Chond rocalcinosis can be an age related finding, but with other possible etiologies including CPPD, parath yroid disorders, hemochromatosis, gout. There are no acute fractures or dislocations identified. The re is no subcutaneous gas. The soft tissue is unremarkable. There are no radiopaque foreign bodies . IMPRESSION: Moderate right knee osteoarthritis. Chondrocalcinosis. Reviewed, dictated and finalized at location A. RETE MIXER OPERATOR
--- NOTE | ~2020-06-27 | CT_ITS ---
EXAMINATION: CT brain wo con INDICATION: Confusion and slurred speech COMPARISON: 06/30/2018 TECHNIQUE: Standard unenhanced head CT. The dose-length product (DLP) was 605.33 mGy-cm. The mA was a djusted according to patient size. Iterative reconstruction technique was employed. FINDINGS: There is no acute intraparenchymal hemorrhage. No evidence of mass lesion. No evidence of a cute infarction. There is mild periventricular and subcortical hypodensity probably related to small vessel ischemic disease. There is mild prominence of the sulci and ventricles related to cerebral atr ophy. Intracranial calcified cerebral atherosclerosis is noted. There are no extra-axial collections. There is no mass effect or midline shift. The orbits and soft tissues are unremarkable. The visuali zed sinuses and mastoid air cells are well aerated. IMPRESSION: 1. No acute intracranial abnormality. 2. Age related findings. Reviewed, dictated and finalized at location A. N RESOURCES BENEFITS SPECIALIST
--- NOTE | ~2020-06-27 | XR_ITS ---
EXAMINATION: XR ankle RT 2V EXAM DATE: 06/28/2020 13:27 INDICATION: Right ankle pain. TECHNIQUE: Frontal and lateral projections of the right ankle. Comparison is made to prior examinati on from 07/09/2018. FINDINGS: There are no acute right ankle fractures or dislocations identified. There is no subcuta neous gas. There is nonspecific swelling over the ankle subcutaneous tissues. There is moderate-sized inferior calcaneal spur. There are vascular calcifications, arteriosclerosis. Mild to moderate polya rticular primary osteoarthritis.. There are no radiopaque foreign bodies. IMPRESSION: 1. Right ankle exam without acute osseous findings. 2. Soft tissue swelling. 3. Chronic findings. Reviewed, dictated and finalized at location A. SCAPE FOREMAN
--- NOTE | 2020-06-27 18:54 | ECG_ITS ---
Measurements Intervals [place] Rate: 58 P: SD: 0 QRS: 65 QRSD: 129 T: 91 QT: 437 QTc: 432 Interpretive Statements ATRIAL FIBRILLATION WITH SLOW VENTRICULAR RESPONSE INTRAVENTRICULAR CONDUCTION DELAY BORDERLINE R WAVE PROGRESSION, ANTERIOR LEADS BORDERLINE ST-T WAVE ABNORMALITY- HIGH LATERAL LEADS BASELINE ARTIFACT- I, III, V4-V5 ABNORMAL ECG Electronically Signed On 06-27-2020 20:00:49 HRIS MANAGER by Jimenez Mendez D.O.
[2020-06-27 19:23] LABS: Basophils Percent Auto 0.5 % (0.2-1.2); Eosinophils Absolute Auto 0.5 K/mm3 (0-0.3); Eosinophils Percent Auto 8.2 % (0-4.4); Hematocrit 35.8 % (37.0-47.0); Hemoglobin 10.8 g/dL (12.0-15.0); Immature Granulocyte Absolute 0.02 K/mm3 (0.00-0.031); Immature Granulocyte Percent A 0.3 % (0-0.5); Lymphocytes Absolute Auto 1.76 K/mm3 (0.9-3.2); Lymphocytes Percent Auto 26.7 % (18.3-44.2); Mean Corpuscular HGB Conc 30.2 g/dl (32-36); Mean Corpuscular Volume 89.5 fl (80-100); Mean Platelet Volume 10.4 fl (7.4-10.4); Monocytes Absolute Auto 0.8 K/mm3 (0.1-0.6); Monocytes Percent Auto 12.3 % (2.6-8.5); Neutrophils Absolute Auto 3.4 K/mm3 (1.3-6.7); Platelet Count Result 320 k/mm3 (150-375); Red Cell Distribution Width 15.9 % (11.5-14.5); White Blood Count 6.6 K/mm3 (4.5-10.0)
[2020-06-27 19:37] LABS: Alanine Aminotransferase 10 U/L (4-35); Albumin Level 2.8 g/dL (3.5-5.1); Alkaline Phosphatase 61 U/L (38-126); Anion Gap 2 mmol/L (8-16); Aspartate Amino Transferase 17 U/L (14-36); Bilirubin,Total 0.3 mg/dL (0.2-1.3); Blood Urea Nitrogen 21 mg/dL (7-17); Calcium 8.9 mg/dL (8.4-10.2); Carbon Dioxide 36 mmol/L (22-30); Chloride 104 mmol/L (98-107); Estimated CRCL calculation 68 ml/min; Estimated Glomerular Filt Rate > 60; Glucose 115 mg/dL (65-105); Potassium 3.2 mmol/L (3.4-5.0); Sodium 142 mmol/L (137-145)
--- NOTE | 2020-06-27 19:37 | ED.GENADULT ---
HPI - General Adult General Chief complaint: Altered Mental Status Stated complaint: AMS Time Seen by Provider: 06/27/20 19:04 History of Present Illness HPI narrative: Patient is a 75-year-old female who [facility] with complaints of altered mental status. At baseline patient is oriented x3 and can hold normal conversations. Patient wears 4 L of oxygen chronically. She was diagnosed with UTI today and received a dose of Macrobid. She is reporting no fevers or chills however she also does not know why she was sent in. According to EMS patient had been slurring her speech earlier but she is not having any slurred speech at this time. Patient reports pain in the right lower extremity that is apparently chronic. Also today patient has been more confused on the being oriented x1-2. Related Data Home Medications Medication Instructions Recorded Confirmed aspirin 81 mg tablet,delayed 81 mg PO DAILY 04/09/19 06/28/20 release atorvastatin 40 mg tablet 40 mg PO DAILY 04/09/19 06/28/20 clopidogrel 75 mg tablet 75 mg PO DAILY 04/09/19 06/28/20 gabapentin 300 mg capsule 600 mg PO BID 04/09/19 06/28/20 isosorbide dinitrate 30 mg tablet 30 mg PO DAILY tablet 04/09/19 06/28/20 levothyroxine 112 mcg tablet 112 mcg PO DAILY 04/09/19 06/28/20 lisinopril 40 mg tablet 40 mg PO DAILY 04/09/19 06/28/20 nitroglycerin 0.4 mg sublingual 0.4 mg SUBLINGUAL Q5M PRN 04/09/19 06/28/20 tablet meclizine 25 mg tablet 25 mg PO TID PRN 06/01/19 06/28/20 mecobalamin (vitamin B12) 1,000 1,000 mcg PO DAILY tablet 06/01/19 06/28/20 mcg disintegrating tablet,sublingual pantoprazole 40 mg tablet,delayed 40 mg PO BID tablet 06/01/19 06/28/20 release Lantus Solostar U-100 Insulin 50 unit SUB-Q DAILY 02/08/20 06/28/20 apixaban [Eliquis] 5 mg PO BID 06/28/20 06/28/20 diclofenac sodium 1 ea TOPICAL BID 06/28/20 06/28/20 furosemide 40 mg PO QAM 06/28/20 06/28/20 guaifenesin 400 mg PO BID PRN 06/28/20 06/28/20 insulin lispro [Humalog KwikPen 12 unit SUBCUT TIDWMEAL 06/28/20 06/28/20 Insulin] ipratropium-albuterol 3 ml INHALATION Q4H PRN 06/28/20 06/28/20 ipratropium-albuterol [Combivent 1 puff INHALATION QID 06/28/20 06/28/20 Respimat] metoprolol succinate 100 mg PO DAILY 06/28/20 06/28/20 nitrofurantoin monohyd/m-cryst 100 mg PO BID 06/28/20 06/28/20 [Macrobid] Allergies Allergy/AdvReac Type Severity Reaction Status Date / Time codeine AdvReac Unknown Unknown Verified 06/27/20 18:44 Review of Systems Review of Systems: ROS unobtainable: Yes unobtainable due to mental status [facility] Past Medical History Medical History (Updated 06/28/20 @ 07:28 by Chico Brar MD) Anemia Anxiety Aortic stenosis moderate based on echo 02/09/20 with severe aortic valve sclerosis Arthritis CAD (coronary artery disease) Cataracts, bilateral maturing CHF (congestive heart failure) echocardiogram 01/2020: EF of 55-60%, severe left ventricular wall hypertrophy, abnormal diastolic function, moderate aortic stenosis with a valve area of 1, severe aortic valve sclerosis Chronic kidney disease COPD (chronic obstructive pulmonary disease) Depression Essential (primary) hypertension GERD (gastroesophageal reflux disease) Gout Hearing loss Hypothyroidism Mixed hyperlipidemia Obesity NIRMALA on CPAP Peripheral neuropathy TIA (transient ischemic attack) Type 2 diabetes mellitus Ulcer Vision loss Vitamin D deficiency Surgical History Surgical History (Updated 06/27/20 @ 23:19 by Lissa Alexander DO) H/O inguinal hernia repair H/O tubal ligation History of cholecystectomy History of coronary artery stent placement total of 7 cardiac stents with reported last cardiac catheterization 2014 with no stents placed at that time History of umbilical hernia repair Family History Family History Father Hypertension Cerebrovascular accident CAD (coronary artery disease)
[2020-06-27 19:48] LABS: Alveolar/Arterial O2 Gradient 29.1 mmHg; Base Excess ABG 8.3 mEq/l (+/-2.0); Carboxyhemoglobin 0.3 % THb (0-2.0); Fractional Inspired Oxygen 36 %; HCO3 ABG 35.1 mEq/l (22.0-26.0); Methemoglobin ABG 0.3 %THb (0-1.5); Oxyhemoglobin 97.7 % THb (90.0-100.0); PCO2 ABG 59.8 mmHg (35.0-45.0); PO2 ABG 158.2 mmHg (80.0-100.0); PO2 FiO2 Ratio Arterial Blood 4.39 %; Reduced Hemoglobin 1.7 %THb (0-5.0); Total Hemoglobin 11.4 g/dL (12.0-18.0); pH ABG 7.386 (7.350-7.450)
[2020-06-27 19:49] LABS: Device NASAL CANNULA; Modified Allen's Test Pass; Site Drawn RIGHT RADIAL
[2020-06-27 20:21] LABS: Add Urine Microscopic? YES; Appearance Urine Cloudy (Clear); Bacteria Urine 1+ /hpf; Bilirubin Urine Negative (Negative); Blood Urine 1+ (Negative); Color Urine Yellow (Yellow); Glucose Urine UA Negative (Negative); Ketones Urine Negative (Negative); Leukocyte Esterase Ur 3+ LEU/UL (Negative); Nitrate Urine Negative (Negative); Protein Urine Negative (Negative); Squamous Epithelial Cell Urine Rare /hpf (Few); Urobilinogen Urine Negative mg/dL (<2.0); WBC Urine >75 /hpf
--- NOTE | 2020-06-27 20:42 | PC.NURSE ---
Florentino from [facility] updated on patient
--- NOTE | 2020-06-27 23:06 | PM.IMHP ---
H&P: HPI History of Present Illness Date/Time: 06/28/20 02:00 Chief Complaint: Slurred speech and confusion Narrative: Tracy Thorpe is a 75 year old female with a past medical history of CHF, obstructive sleep apnea, and chronic kidney disease who presented to the ER via EMS from intermediate facility due to altered mental status. The patient had been diagnosed with a [facility] at the [facility] and was started on Macrobid. Despite being on antibiotic therapy the patient became more confused. Reportedly patient is usually alert oriented x3. In the ER the patient was only alert oriented times 1-2. At the time of my evaluation the patient was actually alert and oriented x4. She has remained afebrile. She arrived on her chronic oxygen therapy. She was satting 96% on 2 L nasal cannula which is down from her baseline 4 L nasal cannula. she was complaining of chronic right lower extremity pain. She is here dated with nursing staff because they are being too rough with her right leg. She is frustrated because she is still and mobile and unable to ambulate. She reports that she has been having some mild dysuria. She has chronic urinary frequency issues. She feels as if she may have some diarrhea. She states that she has been having bowel movements 3 times a day. She does not know the consistency of her bowel movements as she is dependent on nursing staff to clean her up. She denies any abdominal pain. She does report bilateral flank pain. She has not been having any nausea or vomiting. She has an occasional cough that is unchanged from her baseline. She denies any orthopnea. She has not been having any chest pain or palpitations. She denies any headaches. Review of Systems Review of Systems: Narrative: 12 systems were reviewed with pertinent positives and negatives per HPI. Except as documented in the HPI, all other systems were reviewed and are negative. [facility] Past Medical History Medical History (Updated 06/27/20 @ 23:26 by Lissa Alexander DO) Anemia Anxiety Aortic stenosis moderate based on echo 02/09/20 with severe aortic valve sclerosis Arthritis CAD (coronary artery disease) Cataracts, bilateral maturing CHF (congestive heart failure) echocardiogram 01/2020: EF of 55-60%, severe left ventricular wall hypertrophy, abnormal diastolic function, moderate aortic stenosis with a valve area of 1, severe aortic valve sclerosis Chronic kidney disease COPD (chronic obstructive pulmonary disease) Depression Essential (primary) hypertension GERD (gastroesophageal reflux disease) Gout Hearing loss Hypothyroidism Mixed hyperlipidemia Obesity NIRMALA on CPAP Peripheral neuropathy TIA (transient ischemic attack) Type 2 diabetes mellitus Ulcer Vision loss Vitamin D deficiency Surgical History Surgical History (Updated 06/27/20 @ 23:19 by Lissa Alexander DO) H/O inguinal hernia repair H/O tubal ligation History of cholecystectomy History of coronary artery stent placement total of 7 cardiac stents with reported last cardiac catheterization 2014 with no stents placed at that time History of umbilical hernia repair Family History Family History Father Hypertension Cerebrovascular accident CAD (coronary artery disease) Mother Acute myocardial infarction Diabetes mellitus Lung cancer Hypertension Social History Social History (Updated 06/27/20 @ 23:23 by Lissa Alexander DO) Social History: Ms. Thorpe lived at [facility] until January 2020. At that time she was hospitalized for COVID-19 pneumonia and after her COVID infection she was no longer ambulatory and had to be placed in [facility]. Primary care physician: Dr. Hamilton Tristan Code status: full code Healthcare power of commercial real estate attorney: Lisa (daughter) Smoking status: Never smoker Alcohol intake: unknown Substance use: unknown Substance
[2020-06-28] VITALS (10 sets, daily range): BP systolic 103–168; BP diastolic 56–100; PULSE 8–82; RESP 11–23; TEMP 36.2–36.6; O2SAT 93–100; BMI 52.7
--- NOTE | 2020-06-28 00:23 | PC.NURSE ---
Daughter and Bella[place] notified of admission
--- NOTE | 2020-06-28 01:23 | ADMGEN ---
This patient, Tracy Thorpe, was admitted to Medical Room 248- at 0115. Patient/family oriented to hospital policies and general routines including ID bracelet, bed and alarms, visiting hours, pain management, procedures, bathroom and other care routines, personal items, smoking policy, room service/diet, and visiting hours. Information on how to activate the Rapid Response Team has been discussed. Patient/Family are encouraged to report perceived risks to care and to ask questions if they do not understand what they are told or what they should do.
[2020-06-28] MEDS: SODIUM CHLORIDE 0.9% IV 1,000 ML 75 ML IV CONT (02:41)
[2020-06-28] MEDS: ACETAMINOPHEN 325 MG TABLET 650 MG PO ×3 (02:42→22:29)
[2020-06-28] MEDS: LEVOTHYROXINE SODIUM 112 MCG TABLET PO (05:53)
[2020-06-28 05:57] LABS: Hematocrit 37.5 % (37.0-47.0); Hemoglobin 11.2 g/dL (12.0-15.0); Mean Corpuscular HGB Conc 29.9 g/dl (32-36); Mean Corpuscular Hemoglobin 26.5 pg (26-34); Mean Corpuscular Volume 88.7 fl (80-100); Mean Platelet Volume 10.6 fl (7.4-10.4); Platelet Count Result 296 k/mm3 (150-375); Red Blood Count 4.23 M/mm3 (4.2-5.4); Red Cell Distribution Width 15.9 % (11.5-14.5); White Blood Count 10.5 K/mm3 (4.5-10.0)
[2020-06-28 06:07] LABS: Anion Gap 1 mmol/L (8-16); Blood Urea Nitrogen 20 mg/dL (7-17); Calcium 9.3 mg/dL (8.4-10.2); Carbon Dioxide 38 mmol/L (22-30); Chloride 104 mmol/L (98-107); Estimated CRCL calculation 66 ml/min; Estimated Glomerular Filt Rate > 60; Glucose 118 mg/dL (65-105); Potassium 3.8 mmol/L (3.4-5.0); Sodium 143 mmol/L (137-145)
[2020-06-28 08:15] LABS: Glucose Point of Care 112 (65-105)
[2020-06-28] MEDS: allopurinoL 100 MG TABLET PO (08:15)
[2020-06-28] MEDS: APIXABAN 5 MG TABLET PO ×2 (08:16→17:55)
[2020-06-28] MEDS: ASPIRIN 81 MG ENTERIC TABLET PO (08:16)
[2020-06-28] MEDS: CLOPIDOGREL BISULFATE 75 MG TABLET PO (08:17)
[2020-06-28] MEDS: DICLOFENAC SODIUM 1% 100 GM GEL (*BKC) 1 APPLIC TOPICAL ×2 (08:17→17:55)
[2020-06-28] MEDS: ATORVASTATIN 40 MG TABLET PO (08:17)
[2020-06-28] MEDS: CYANOCOBALAMIN 1,000 MCG TABLET 1000 MCG PO (08:17)
[2020-06-28] MEDS: DULoxetine HCL 20 MG CAPSULE.DR PO (08:18)
[2020-06-28] MEDS: lisinopriL 20 MG TABLET 40 MG PO (08:18)
[2020-06-28] MEDS: GABAPENTIN 300 MG CAPSULE 600 MG PO ×2 (08:18→17:55)
[2020-06-28] MEDS: PANTOPRAZOLE 40 MG TABLET PO ×2 (08:19→17:55)
[2020-06-28] MEDS: METOPROLOL SUCCINATE EXT REL 100 MG TABCR PO (08:24)
[2020-06-28] MEDS: INSULIN GLARGINE (*BKC) 100 UNITS/ML 50 UNITS SUB-Q (08:31)
[2020-06-28 11:49] LABS: Glucose Point of Care 174 (65-105)
[2020-06-28] MEDS: INSULIN ASPART (*BKC) 100 UNITS/ML 8 UNITS SUB-Q ×2 (12:13→17:50)
[2020-06-28] MEDS: ISOSORBIDE DINITRATE 10 MG TABLET 30 MG PO (12:18)
--- NOTE | 2020-06-28 13:03 | PC.NURSE ---
Stallion Keeper called Michelle Major made aware Pt refused Am Novolog as she reports she does not take with her lantus, also clarified X-ray order as pt c/o pain to RLE not LLE x-ray ordered changed to Right knee and ankle.
--- NOTE | 2020-06-28 13:55 | PCOTNOTE ---
Attempted OT evaluation, but unable to complete as patient declined. Patient requested therapist to come back tomorrow. Patient reported maybe she will feel better tomorrow. Will attempt again at another time.
--- NOTE | 2020-06-28 13:58 | PM.IMPN ---
Progress Note: A&P Assessment and Plan (1) UTI (urinary tract infection): Qualifiers: Urinary tract infection type: site unspecified Hematuria presence: with hematuria Qualified Code(s): N39.0 - Urinary tract infection, site not specified; R31.9 - Hematuria, unspecified Code(s): N39.0 - Urinary tract infection, site not specified Status: Acute Assessment and Plan: Urinalysis at outside facility since is for UTI and she was started on Macrobid a few days prior to admission -patient had altered mental status so she was brought into the ER -are urine culture is pending and she will be continued on ceftriaxone -no word of a urine culture yet from the nursing facility -monitor cultures and adjust medications as necessary (2) Metabolic encephalopathy: Code(s): G93.41 - Metabolic encephalopathy Status: Acute Assessment and Plan: Due to above, resolved (3) Diabetes mellitus with insulin therapy: Code(s): E11.9 - Type 2 diabetes mellitus without complications; Z79.4 - power project manager (current) use of insulin Status: Acute Assessment and Plan: Last glucose 174 -continue sliding scale insulin -continue home Lantus but decrease dose while hospitalized -will continue mealtime insulin and decrease that dose as well -may need to make adjustments further depending on her glucose (4) Leg pain: Code(s): M79.606 - Pain in leg, unspecified Status: Acute Assessment and Plan: Likely due to morbid obesity -x-ray of the knee and ankle without hospice abnormalities -continue PT and OT -if severe pain continues, may consider CT of the leg -no signs and symptoms of cellulitis or blood clot. Patient on Eliquis (5) Recurrent major depressive disorder: Qualifiers: Active/Remission status: currently active Major depression episode severity: moderate Qualified Code(s): F33.1 - Major depressive disorder, recurrent, moderate Code(s): F33.9 - Major depressive disorder, recurrent, unspecified Status: Acute Assessment and Plan: Continue Xanax (6) Hypertension: Code(s): I10 - Essential (primary) hypertension Status: Acute Assessment and Plan: Last blood pressure 146/56 -continue metoprolol, isosorbide, lisinopril, and Lasix -will stop fluids Time Spent With Patient Time with patient: 25 - 35 minutes Subjective Date/time seen: 06/28/20 13:58 Interval history: Pt is a 75-year-old female here for UTI. Patient was seen today and has many complaints. The 1st complaint is that her right leg hurts and she cannot put very much weight on it. This is been going on for quite some time and is just progressively getting worse. She has also had some back pain recently without any falls and thinks it is because she has been lying in bed more because of her knee. She continues to have urinary frequency which she says is chronic for her as well. She would like to heating pad for her back. Pt denies nausea, vomiting, fevers, chills, constipation, diarrhea, chest pain, sob, or abdominal pain. She states she has history of a murmur and has had multiple echoes. Review of Systems Review of Systems: All systems reviewed & are unremarkable except as noted in HPI and below Exam Narrative: Exam Narrative: General: Severely overweight patient resting in bed in no acute distress HEENT: normocephalic Neck: supple Neuro: Alert and oriented x4. Cranial nerves 2-12 intact. Equal strength the upper lower extremities 5/5. Able to do rapid alternating movements and [id number] CV:RRR with systolic murmur Resp: Decreased breath sounds due to body habitus and chronic lung disease. Oxygen applied with no conversational dyspnea Abd: Soft, non distended. No pain to palpation. Positive bowel sounds Extremities: Some chronic swelling to the lower extremities but no erythema. Some pain to palpation to manipulatio
[2020-06-28 17:15] LABS: Glucose Point of Care 165 (65-105)
--- NOTE | 2020-06-28 17:15 | PC.NURSE ---
To Radiology per stretcher
--- NOTE | 2020-06-28 17:38 | PC.NURSE ---
Returned from Radiology
[2020-06-28] MEDS: AMITRIPTYLINE HCL 25 MG TABLET PO (20:22)
[2020-06-28 20:45] LABS: Glucose Point of Care 198 (65-105)
[2020-06-28] MEDS: ALPRAZolam (*CRX) 0.25 MG TABLET PO (22:33)
[2020-06-29] VITALS (8 sets, daily range): BP systolic 112–131; BP diastolic 52–72; PULSE 57–79; RESP 18–20; TEMP 36.1–36.3; O2SAT 92–97
[2020-06-29] MEDS: LEVOTHYROXINE SODIUM 112 MCG TABLET PO (06:01)
[2020-06-29 08:57] LABS: Glucose Point of Care 115 (65-105)
[2020-06-29] MEDS: APIXABAN 5 MG TABLET PO ×2 (09:28→17:09)
[2020-06-29] MEDS: allopurinoL 100 MG TABLET PO (09:28)
[2020-06-29] MEDS: ATORVASTATIN 40 MG TABLET PO (09:29)
[2020-06-29] MEDS: ASPIRIN 81 MG ENTERIC TABLET PO (09:29)
[2020-06-29] MEDS: CYANOCOBALAMIN 1,000 MCG TABLET 1000 MCG PO (09:29)
[2020-06-29] MEDS: CLOPIDOGREL BISULFATE 75 MG TABLET PO (09:29)
[2020-06-29] MEDS: DULoxetine HCL 20 MG CAPSULE.DR PO (09:29)
[2020-06-29] MEDS: lisinopriL 20 MG TABLET 40 MG PO (09:30)
[2020-06-29] MEDS: ISOSORBIDE DINITRATE 10 MG TABLET 30 MG PO (09:30)
[2020-06-29] MEDS: FUROSEMIDE 40 MG TABLET PO (09:30)
[2020-06-29] MEDS: GABAPENTIN 300 MG CAPSULE 600 MG PO ×2 (09:30→17:09)
[2020-06-29] MEDS: METOPROLOL SUCCINATE EXT REL 100 MG TABCR PO (09:31)
[2020-06-29] MEDS: PANTOPRAZOLE 40 MG TABLET PO ×2 (09:31→17:09)
[2020-06-29] MEDS: DICLOFENAC SODIUM 1% 100 GM GEL (*BKC) 1 APPLIC TOPICAL ×2 (09:31→17:09)
[2020-06-29] MEDS: INSULIN GLARGINE (*BKC) 100 UNITS/ML 40 UNITS SUB-Q (09:37)
[2020-06-29] MEDS: ACETAMINOPHEN 325 MG TABLET 650 MG PO (09:40)
[2020-06-29 12:03] LABS: Glucose Point of Care 160 (65-105)
--- NOTE | 2020-06-29 12:14 | PM.IMPN ---
Progress Note: A&P Assessment and Plan (1) Discharge planning issues: Code(s): Z02.9 - Encounter for administrative examinations, unspecified Status: Acute Assessment and Plan: Unable to d/c today because COVID test has not been resulted -await COVID test tomorrow and discharge. (2) UTI (urinary tract infection): Qualifiers: Urinary tract infection type: site unspecified Hematuria presence: with hematuria Qualified Code(s): N39.0 - Urinary tract infection, site not specified; R31.9 - Hematuria, unspecified Code(s): N39.0 - Urinary tract infection, site not specified Status: Acute Assessment and Plan: Urinalysis at outside showing proteus mirabilis -sensitive to many oral mediations including augmentin and cefazolin. It is also sensitive to ceftriaxone -patient had altered mental status so she was brought into the ER -Our urine culture shows contamination but outside facility culture on the chart. (3) Metabolic encephalopathy: Code(s): G93.41 - Metabolic encephalopathy Status: Acute Assessment and Plan: Due to above, resolved -CT of the brain negative for acute pathology (4) Diabetes mellitus with insulin therapy: Code(s): E11.9 - Type 2 diabetes mellitus without complications; Z79.4 - care home (current) use of insulin Status: Acute Assessment and Plan: Last glucose 160 -continue sliding scale insulin -continue home Lantus (at decreased dose while hospitalized) -will continue mealtime insulin as well -may need to make adjustments further depending on her glucose (5) Leg pain: Code(s): M79.606 - Pain in leg, unspecified Status: Acute Assessment and Plan: Likely due to morbid obesity with OA -x-ray of the knee and ankle without osseous abnormalities -continue PT and OT -Pain has been present for 4 years. There is no erythema or swelling to suspect acute prosess. -no signs and symptoms of cellulitis or blood clot. Patient on Eliquis (6) Recurrent major depressive disorder: Qualifiers: Active/Remission status: currently active Major depression episode severity: moderate Qualified Code(s): F33.1 - Major depressive disorder, recurrent, moderate Code(s): F33.9 - Major depressive disorder, recurrent, unspecified Status: Acute Assessment and Plan: Continue Xanax (7) Hypertension: Code(s): I10 - Essential (primary) hypertension Status: Acute Assessment and Plan: Last blood pressure 112/52 -continue metoprolol, isosorbide, lisinopril, and Lasix Subjective Date/time seen: 06/29/20 12:14 Interval history: Pt is a 75-year-old female here for UTI. Patient was seen today and is doing okay. She has no new complaints other than her now left leg that hurts because they hit it while getting her up when she was in the CT scan. She says her right leg pain has been there for 4 years and she saw an ortho who said that she needs to loose weight. It has not been red or swollen. She denies CP, fevers, chills, nausea, vomiting, or diarrhea. Exam Narrative: Exam Narrative: General: Severely overweight patient resting in bed in no acute distress HEENT: normocephalic Neck: supple Neuro: Alert and oriented x4. Cranial nerves 2-12 intact. Equal strength the upper lower extremities 5/5. Able to do rapid alternating movements and [id number] CV:RRR with systolic murmur Resp: Decreased breath sounds due to body habitus and chronic lung disease. Oxygen applied with no conversational dyspnea Abd: Soft, non distended. No pain to palpation. Positive bowel sounds Extremities: Some chronic swelling to the lower extremities but no erythema. Some pain to palpation to the joint line of her right knee. Objective Data Vital Signs Vital Signs: Vital Signs - 24 hr 06/28/20 14:00 06/28/20 14:15 06/28/20 19:59 Temperature 97.8 F Pulse R
[2020-06-29] MEDS: INSULIN ASPART (*BKC) 100 UNITS/ML 8 UNITS SUB-Q ×2 (12:27→17:07)
[2020-06-29 17:27] LABS: Glucose Point of Care 172 (65-105)
[2020-06-29] MEDS: AMITRIPTYLINE HCL 25 MG TABLET PO (20:17)
[2020-06-30] VITALS (8 sets, daily range): BP systolic 124–154; BP diastolic 54–70; PULSE 69–75; RESP 18–20; TEMP 36.1–36.2; O2SAT 92–98
[2020-06-30] MEDS: ACETAMINOPHEN 325 MG TABLET 650 MG PO ×2 (00:59→20:53)
[2020-06-30 02:13] LABS: Glucose Point of Care 249 (65-105)
[2020-06-30] MEDS: LEVOTHYROXINE SODIUM 112 MCG TABLET PO (05:18)
[2020-06-30 06:14] LABS: Anion Gap 1 mmol/L (8-16); Blood Urea Nitrogen 20 mg/dL (7-17); Calcium 8.6 mg/dL (8.4-10.2); Carbon Dioxide 35 mmol/L (22-30); Chloride 104 mmol/L (98-107); Estimated CRCL calculation 53 ml/min; Estimated Glomerular Filt Rate 54; Glucose 238 mg/dL (65-105); Potassium 3.1 mmol/L (3.4-5.0); Sodium 140 mmol/L (137-145)
[2020-06-30 06:42] LABS: Hematocrit 33.3 % (37.0-47.0); Mean Corpuscular Hemoglobin 26.7 pg (26-34); Mean Platelet Volume 11.3 fl (7.4-10.4); Platelet Count Result 293 k/mm3 (150-375); Red Blood Count 3.74 M/mm3 (4.2-5.4); Red Cell Distribution Width 15.9 % (11.5-14.5); White Blood Count 6.1 K/mm3 (4.5-10.0)
[2020-06-30 07:55] LABS: Glucose Point of Care 174 (65-105)
[2020-06-30] MEDS: GABAPENTIN 300 MG CAPSULE 600 MG PO ×2 (08:12→16:52)
[2020-06-30] MEDS: POTASSIUM CHLORIDE 20 MEQ TABLET 40 MEQ PO (08:12)
[2020-06-30] MEDS: ISOSORBIDE DINITRATE 10 MG TABLET 30 MG PO (08:13)
[2020-06-30] MEDS: METOPROLOL SUCCINATE EXT REL 100 MG TABCR PO (08:13)
[2020-06-30] MEDS: CYANOCOBALAMIN 1,000 MCG TABLET 1000 MCG PO (08:13)
[2020-06-30] MEDS: ASPIRIN 81 MG ENTERIC TABLET PO (08:13)
[2020-06-30] MEDS: lisinopriL 20 MG TABLET 40 MG PO (08:14)
[2020-06-30] MEDS: APIXABAN 5 MG TABLET PO ×2 (08:14→16:53)
[2020-06-30] MEDS: ATORVASTATIN 40 MG TABLET PO (08:14)
[2020-06-30] MEDS: allopurinoL 100 MG TABLET PO (08:14)
[2020-06-30] MEDS: CLOPIDOGREL BISULFATE 75 MG TABLET PO (08:14)
[2020-06-30] MEDS: DICLOFENAC SODIUM 1% 100 GM GEL (*BKC) 1 APPLIC TOPICAL ×2 (08:15→16:53)
[2020-06-30] MEDS: PANTOPRAZOLE 40 MG TABLET PO ×2 (08:15→16:55)
[2020-06-30] MEDS: FUROSEMIDE 40 MG TABLET PO ×2 (08:15→23:29)
[2020-06-30] MEDS: DULoxetine HCL 20 MG CAPSULE.DR PO (08:15)
[2020-06-30] MEDS: INSULIN GLARGINE (*BKC) 100 UNITS/ML 40 UNITS SUB-Q (08:22)
[2020-06-30] MEDS: INSULIN ASPART (*BKC) 100 UNITS/ML 8 UNITS SUB-Q ×3 (08:30→16:54)
--- NOTE | 2020-06-30 10:27 | PM.DS ---
DS: Summary Time Spent with Patient Time attestation: Total time spent providing and/or coordinating discharge services: DS: Data Data Completed and Pending Labs on day of discharge: Labs from last 24 hours 06/30/20 06/30/20 06/30/20 07:44 04:51 04:51 WBC 6.1 RBC 3.74 L Hgb 10.0 L Hct 33.3 L MCV 89.0 MCH 26.7 MCHC 30.0 L RDW 15.9 H Plt Count 293 MPV 11.3 H Sodium 140 Potassium 3.1 L Chloride 104 Carbon Dioxide 35 H Anion Gap 1 L BUN 20 H Creatinine 1.00 Estim Creat Clear Calc 53 Estimated GFR 54 L Glucose 238 H POC Capillary Glucose 174 H Calcium 8.6 06/29/20 06/29/20 06/29/20 20:29 17:05 11:59 WBC RBC Hgb Hct MCV MCH MCHC RDW Plt Count MPV Sodium Potassium Chloride Carbon Dioxide Anion Gap BUN Creatinine Estim Creat Clear Calc Estimated GFR Glucose POC Capillary Glucose 249 H 172 H 160 H Calcium Discharge Plan Discharge Attending physician on discharge: Clarke Christopher Discharging Clinician: Michelle Clement Patient Disposition: [facility] Living Activity: as tolerated Diet: as tolerated and regular Discharge Instructions: -Please take all of your antibiotics even if you start to feel better -You are now only on 1 L of oxygen and doing well. I would suggest the [facility] wean you off of this as tolerated -Follow up with facility provider in 1-2 weeks -If you have stroke like symptoms which include: numbness/tingling to any part of the body, asymmetrical features, problems with speech, problems with word-finding, problems with balance or walking, or worsened confusion call 911 -worrisome signs and symptoms to come back to emergency room for: Fevers 100.4 or greater, chest pain, shortness of breath, progressive significant weakness, or any other worrisome symptom Patient Instructions: Antibiotic Form, Apixaban (By mouth), Heart Failure (DC), Sleep Apnea (GEN), Urinary Tract Infection in Women (DC) Stand Alone Forms: General Discharge Information Discharge Medications: New amoxicillin-pot clavulanate [Augmentin] 500-125 mg tablet 1 tablet PO Q12H 5 Days Qty: 10 RF: 0 Continued duloxetine 20 mg capsule,delayed release(DR/EC) 20 mg PO DAILY Qty: 90 RF: 1 amitriptyline 25 mg tablet 25 mg PO .qhs Qty: 90 RF: 1 ipratropium-albuterol 0.5 mg-3 mg(2.5 mg base)/3 mL Solution For Nebulization 3 ml INHALATION Q4H PRN (Reason: Shortness Of Breath) RF: 0 insulin lispro [Humalog KwikPen Insulin] 100 unit/mL insulin pen 12 unit SUBCUT TIDWMEAL RF: 0 guaifenesin 400 mg Tablet 400 mg PO BID PRN (Reason: Cough) RF: 0 diclofenac sodium 1 % gel 1 ea TOPICAL BID RF: 0 Eliquis 5 mg tablet 5 mg PO BID RF: 0 Combivent Respimat 20-100 mcg/actuation Mist 1 puff INHALATION QID RF: 0 metoprolol succinate 50 mg tablet extended release 24 hr 100 mg PO DAILY RF: 0 furosemide 20 mg tablet 40 mg PO QAM RF: 0 Lantus Solostar U-100 Insulin 100 unit/mL (3 mL) insulin pen 50 unit SUB-Q DAILY RF: 0 levothyroxine 112 mcg tablet 112 mcg PO DAILY RF: 0 aspirin [Adult Low Dose Aspirin] 81 mg tablet,delayed release (DR/EC) 81 mg PO DAILY RF: 0 atorvastatin 40 mg tablet 40 mg PO DAILY RF: 0 clopidogrel 75 mg tablet 75 mg PO DAILY RF: 0 isosorbide dinitrate 30 mg tablet 30 mg PO DAILY RF: 0 lisinopril 40 mg tablet 40 mg PO DAILY RF: 0 gabapentin 300 mg capsule 600 mg PO BID RF: 0 nitroglycerin 0.4 mg tablet, sublingual 0.4 mg SUBLINGUAL Q5M PRN (Reason: Chest Pain) RF: 0 pantoprazole 40 mg tablet,delayed release (DR/EC) 40 mg PO BID RF: 0 meclizine 25 mg tablet 25 mg PO TID PRN (Reason: motion sickness) RF: 0 mecobalamin (vitamin B12) 1,000 mcg tablet,disintegrating 1,000 mcg PO DAILY RF: 0 allopurinol 100 mg ta
[2020-06-30 11:37] LABS: Glucose Point of Care 206 (65-105)
[2020-06-30] MEDS: INSULIN ASPART (*BKC) 100 UNITS/ML SUB-Q ×2 (11:42→16:54)
--- NOTE | 2020-06-30 14:34 | PM.IMPN ---
Progress Note: A&P Assessment and Plan (1) Discharge planning issues: Code(s): Z02.9 - Encounter for administrative examinations, unspecified Status: Acute Assessment and Plan: d/c delay due to pending COVID testing (2) UTI (urinary tract infection): Qualifiers: Urinary tract infection type: site unspecified Hematuria presence: with hematuria Qualified Code(s): N39.0 - Urinary tract infection, site not specified; R31.9 - Hematuria, unspecified Code(s): N39.0 - Urinary tract infection, site not specified Status: Acute Assessment and Plan: Urinalysis at outside showing proteus mirabilis -sensitive to many oral mediations including augmentin and cefazolin. It is also sensitive to ceftriaxone -patient had altered mental status so she was brought into the ER, now resolved. -Our urine culture shows contamination but outside facility culture on the chart. -Continue abx (3) Metabolic encephalopathy: Code(s): G93.41 - Metabolic encephalopathy Status: Acute Assessment and Plan: Due to above, resolved -CT of the brain negative for acute pathology (4) Diabetes mellitus with insulin therapy: Code(s): E11.9 - Type 2 diabetes mellitus without complications; Z79.4 - [employer] (current) use of insulin Status: Acute Assessment and Plan: -continue sliding scale insulin -continue home Lantus (at decreased dose while hospitalized) -will continue mealtime insulin as well -may need to make adjustments further depending on her glucose (5) Leg pain: Code(s): M79.606 - Pain in leg, unspecified Status: Acute Assessment and Plan: Likely due to morbid obesity with OA -x-ray of the knee and ankle without osseous abnormalities -continue PT and OT -Pain has been present for 4 years. There is no erythema or swelling to suspect acute prosess. -no signs and symptoms of cellulitis or blood clot. Patient on Eliquis (6) Recurrent major depressive disorder: Qualifiers: Active/Remission status: currently active Major depression episode severity: moderate Qualified Code(s): F33.1 - Major depressive disorder, recurrent, moderate Code(s): F33.9 - Major depressive disorder, recurrent, unspecified Status: Acute Assessment and Plan: Continue Xanax (7) Hypertension: Code(s): I10 - Essential (primary) hypertension Status: Acute Assessment and Plan: Last blood pressure 126/62 -continue metoprolol, isosorbide, lisinopril, and Lasix Subjective Date/time seen: 07/31/20 14:34 Interval history: Late Entry for 06/30/20 Pt is a 75-year-old female here for UTI. Leg pain improved as well as AMS. No CP, SOB, fevers, chills, nausea or vomiting. Exam Narrative: Exam Narrative: General: Severely overweight patient resting in bed in no acute distress HEENT: normocephalic Neck: supple Neuro: Alert and oriented x4. Cranial nerves 2-12 intact. Equal strength the upper lower extremities 5/5. Able to do rapid alternating movements and [id number] CV:RRR with systolic murmur Resp: Decreased breath sounds due to body habitus and chronic lung disease. Abd: Soft, non distended. No pain to palpation. Positive bowel sounds Extremities: Some chronic swelling to the lower extremities but no erythema. Some pain to palpation to the joint line of her right knee. Objective Data Meds/Results Radiology Results: ITS Impressions Ankle X-Ray 06/28/20 13:28 IMPRESSION: 1. Right ankle exam without acute osseous findings. 2. Soft tissue swelling. 3. Chronic findings. Knee X-Ray 06/28/20 13:30 IMPRESSION: Moderate right knee osteoarthritis. Chondrocalcinosis. Head CT 06/28/20 17:37 IMPRESSION: 1. No acute intracranial abnormality. 2. Age related findings. Chest X-Ray 06/30/20 18:10 Impression: 1: Extensive bilateral airspace
[2020-06-30 16:50] LABS: Glucose Point of Care 209 (65-105)
--- NOTE | 2020-06-30 17:50 | PC.NURSE ---
PT NOTED TO HAVE AUDIBLE WHEEZING AND SOC WHILE TURNING IN BED. O2 1L SAT 90% PT C/O FEELING SOB. NICOLA VALLEJO NOTIFIED AND NEW ORDERS RECEIVED.
[2020-06-30 18:03] LABS: SARS-CoV-2 RNA PCR Negative
--- NOTE | 2020-06-30 18:35 | PC.NURSE ---
DR ESCOBAR NOTIFIED OF CHEST XRAY RESULTS, NEW ORDERS RECEIVED
[2020-06-30 18:53] LABS: Glucose Point of Care 186 (65-105)
[2020-06-30] MEDS: ALPRAZolam (*CRX) 0.25 MG TABLET PO (20:54)
[2020-06-30] MEDS: AMITRIPTYLINE HCL 25 MG TABLET PO (23:29)
[2020-06-30 23:40] LABS: Glucose Point of Care 231 (65-105)
[2020-07-01] VITALS (7 sets, daily range): BP systolic 117–162; BP diastolic 54–86; PULSE 59–73; RESP 18–20; TEMP 36.1–36.4; O2SAT 92–99
[2020-07-01] MEDS: ACETAMINOPHEN 325 MG TABLET 650 MG PO ×2 (06:27→20:51)
[2020-07-01] MEDS: LEVOTHYROXINE SODIUM 112 MCG TABLET PO (06:27)
--- NOTE | 2020-07-01 06:43 | PC.NURSE ---
Pt had several very heavily saturated depends overnight.
[2020-07-01 08:09] LABS: Glucose Point of Care 197 (65-105)
[2020-07-01] MEDS: FUROSEMIDE 40 MG TABLET PO ×2 (08:39→17:13)
[2020-07-01] MEDS: GABAPENTIN 300 MG CAPSULE 600 MG PO ×2 (08:40→16:06)
[2020-07-01] MEDS: CYANOCOBALAMIN 1,000 MCG TABLET 1000 MCG PO (08:40)
[2020-07-01] MEDS: allopurinoL 100 MG TABLET PO (08:40)
[2020-07-01] MEDS: CLOPIDOGREL BISULFATE 75 MG TABLET PO (08:40)
[2020-07-01] MEDS: ISOSORBIDE DINITRATE 10 MG TABLET 30 MG PO (08:40)
[2020-07-01] MEDS: lisinopriL 20 MG TABLET 40 MG PO (08:40)
[2020-07-01] MEDS: ASPIRIN 81 MG ENTERIC TABLET PO (08:40)
[2020-07-01] MEDS: APIXABAN 5 MG TABLET PO ×2 (08:40→16:06)
[2020-07-01] MEDS: PANTOPRAZOLE 40 MG TABLET PO ×2 (08:40→16:06)
[2020-07-01] MEDS: ATORVASTATIN 40 MG TABLET PO (08:40)
[2020-07-01] MEDS: DULoxetine HCL 20 MG CAPSULE.DR PO (08:40)
[2020-07-01] MEDS: METOPROLOL SUCCINATE EXT REL 100 MG TABCR PO (08:41)
[2020-07-01] MEDS: INSULIN GLARGINE (*BKC) 100 UNITS/ML 40 UNITS SUB-Q (08:43)
[2020-07-01] MEDS: INSULIN ASPART (*BKC) 100 UNITS/ML 8 UNITS SUB-Q ×3 (08:44→16:06)
[2020-07-01 11:27] LABS: Glucose Point of Care 244 (65-105)
[2020-07-01] MEDS: DICLOFENAC SODIUM 1% 100 GM GEL (*BKC) 1 APPLIC TOPICAL ×2 (12:16→16:06)
[2020-07-01] MEDS: INSULIN ASPART (*BKC) 100 UNITS/ML SUB-Q ×2 (12:16→16:07)
[2020-07-01 16:10] LABS: Glucose Point of Care 235 (65-105)
--- NOTE | 2020-07-01 16:48 | PM.DS ---
DS: Admitting Diagnosis Admitting Diagnosis Admitting Diagnosis: UTI DS: Discharge Diagnosis Discharge Diagnosis (1) Discharge planning issues: Code(s): Z02.9 - Encounter for administrative examinations, unspecified Status: Acute Assessment and Plan: Date of Admission 06/27/20 Date of Discharge 07/01/20 Ms. Thorpe is a 75yo F with history of CHF, chronic respiratory failure on 4L/min oxygen at baseline, CKD, NIRMALA who presented to the ED from halfway facility due to altered mental status. She had recently been diagnosed with UTI the day prior and had become more confused over the last couple days. CT brain shows no acute findings and it is felt her confusion is likely metabolic encephalopathy related to UTI. Urine culture grew Proteus and she was treated with IV antibiotics with ceftriaxone. Day prior to discharge she described shortness of breath (her supplemental oxygen had been weaned down to 1L/min titrated based on her O2 saturations). She was treated with an additional dose of Lasix and kept overnight. Day of discharge her cognition is at her baseline. She complains of right leg pain which is chronic for her. She was discharged 07/01/20 after COVID testing for discharge planning came back negative, due to delays with ambulance transfer she left our facility early 07/02 morning 0730. Patient not seen 07/02. She is hemodynamically stable for discharge on her home medications in addition to oral Augmentin to complete course of antibiotics for treatment of UTI. (2) UTI (urinary tract infection): Qualifiers: Urinary tract infection type: site unspecified Hematuria presence: with hematuria Qualified Code(s): N39.0 - Urinary tract infection, site not specified; R31.9 - Hematuria, unspecified Code(s): N39.0 - Urinary tract infection, site not specified Status: Acute Assessment and Plan: Urinalysis at outside facility showing proteus mirabilis -Our urine culture shows contamination but outside facility culture on the chart. Treatment as above. (3) Metabolic encephalopathy: Code(s): G93.41 - Metabolic encephalopathy Status: Acute Assessment and Plan: Due to above, resolved -CT of the brain negative for acute pathology (4) Diabetes mellitus with insulin therapy: Code(s): E11.9 - Type 2 diabetes mellitus without complications; Z79.4 - [facility] (current) use of insulin Status: Acute Assessment and Plan: Blood sugars are adequate. -continue sliding scale insulin -continue home Lantus and mealtime insulin (at decreased dose while hospitalized, diet more restricted here) (5) Leg pain: Code(s): M79.606 - Pain in leg, unspecified Status: Acute Assessment and Plan: Likely due to morbid obesity with OA -x-ray of the knee and ankle without osseous abnormalities -continue PT and OT -Pain has been present for 4 years. There is no erythema or swelling to suspect acute prosess. -no signs and symptoms of cellulitis or blood clot. Patient on Eliquis (6) Recurrent major depressive disorder: Qualifiers: Active/Remission status: currently active Major depression episode severity: moderate Qualified Code(s): F33.1 - Major depressive disorder, recurrent, moderate Code(s): F33.9 - Major depressive disorder, recurrent, unspecified Status: Acute Assessment and Plan: Continue Xanax (7) Hypertension: Code(s): I10 - Essential (primary) hypertension Status: Acute Assessment and Plan: Stable maintained on home metoprolol, isosorbide, lisinopril, and Lasix DS: Summary Hospital Course Hospital Course: See abo
[2020-07-01] MEDS: AMITRIPTYLINE HCL 25 MG TABLET PO (20:36)
[2020-07-01 20:46] LABS: Glucose Point of Care 246 (65-105)
[2020-07-01] MEDS: AMOXICILLIN/CLAVULANATE K 500-125 MG TAB 1 TABLET PO (22:42)
--- NOTE | 2020-07-01 23:54 | PC.NURSE ---
Daughter called upset and stated that she did not want her mother to leave at this time of night. Pt does not wish to leave at this time as well stating that it is to late and she wants to sleep. Daughter yelling at staff stating that this is neglect. When attempting to inform her of the ambulance situation just yelled demanding to speak with the housekeeper hospital and that her mother stay till morning. Call then transferred to [facility].
[2020-07-02] MEDS: LEVOTHYROXINE SODIUM 112 MCG TABLET PO (05:55)
[2020-07-02 06:00] VITALS: BP 135/58; PULSE 61; RESP 20; TEMP 36.1; O2SAT 98
[2020-07-02] MEDS: ACETAMINOPHEN 325 MG TABLET 650 MG PO (06:09)
[2020-07-02 07:41] LABS: Glucose Point of Care 159 (65-105)
== END 2020-07-02 08:05 | DRG 689 ==
LOC: ANHED 19:04 → ANH2MED 23:09
PROVIDERS: Emergency Medicine; Internal Medicine; Physician Assistant; Admitting Provider Internal Medicine; Emergency Provider Emergency Medicine; PCP Internal Medicine; Visit Provider Physician Assistant
DX: N39.0 Urinary tract infection, site not specified (principal); G93.41 Metabolic encephalopathy; Z68.43 Body mass index [BMI] 50.0-59.9, adult; I13.0 Hypertensive heart and chronic kidney disease with heart failure and stage 1 through stage 4 chronic kidney disease, or unspecified chronic kidney disease; I50.32 Chronic diastolic (congestive) heart failure; J96.10 Chronic respiratory failure, unspecified whether with hypoxia or hypercapnia; B96.4 Proteus (mirabilis) (morganii) as the cause of diseases classified elsewhere; N18.9 Chronic kidney disease, unspecified; E11.22 Type 2 diabetes mellitus with diabetic chronic kidney disease; Z20.822 Contact with and (suspected) exposure to COVID-19; E66.01 Morbid (severe) obesity due to excess calories; E11.42 Type 2 diabetes mellitus with diabetic polyneuropathy; M17.11 Unilateral primary osteoarthritis, right knee; D64.9 Anemia, unspecified; I25.10 Atherosclerotic heart disease of native coronary artery without angina pectoris; F41.8 Other specified anxiety disorders; J44.9 Chronic obstructive pulmonary disease, unspecified; K21.9 Gastro-esophageal reflux disease without esophagitis; E03.9 Hypothyroidism, unspecified; E78.2 Mixed hyperlipidemia; G47.33 Obstructive sleep apnea (adult) (pediatric); E55.9 Vitamin D deficiency, unspecified; Z86.16 Personal history of COVID-19; Z99.81 Dependence on supplemental oxygen; Z79.4 Long term (current) use of insulin; Z86.73 Personal history of transient ischemic attack (TIA), and cerebral infarction without residual deficits; Z90.49 Acquired absence of other specified parts of digestive tract; Z95.5 Presence of coronary angioplasty implant and graft
CPT/HCPCS: 36415; 36600; 51701; 70450; 71045; 73560; 73600; 80048; 80053; 81001; 82375; 82805; 82948; 83050; 85025; 85027; 87086; 87088; 93005; 96365; 96366; 97110; 97161; 97166; 97530; 99285; A9270; C9803; G0378; J0696; J1815; J1940; J7030; U0003; U0005

== ENCOUNTER 2020-07-30 20:12 | Emergency (ER) | payer MEDICARE, MEDICAID, SELFPAY ==
[2020-07-30] VITALS (7 sets, daily range): BP systolic 116–155; BP diastolic 60–89; PULSE 64–82; RESP 16–32; TEMP 37.1–37.2; O2SAT 97–100
--- NOTE | ~2020-07-30 | XR_ITS ---
EXAMINATION: XR chest 1V INDICATION: Left chest pain TECHNIQUE: AP view of the chest is obtained. COMPARISON: 06/30/2020 FINDINGS: Cardiomegaly is noted. There is a mild diffuse interstitial pattern. No pleural effusion or pneumothorax is identified. There is osteoarthritis of the shoulders. IMPRESSION: 1. Cardiomegaly with mild interstitial opacities, likely pulmonary edema. Reviewed, dictated and finalized at location A.
--- NOTE | 2020-07-30 20:20 | ECG_ITS ---
Measurements Intervals [place] Rate: 72 P: [place]: 0 QRS: 72 QRSD: 126 T: 79 QT: 394 QTc: 432 Interpretive Statements ATRIAL FIBRILLATION INTRAVENTRICULAR CONDUCTION DELAY DELAYED PRECORDIAL R/S TRANSITION BASELINE ARTIFACT- I, II, III, AVR, AVL, AVF ABNORMAL ECG Electronically Signed On 07-31-2020 7:14:06 CDT by Jimenez Mendez D.O.
[2020-07-30 20:32] LABS: Basophils Percent Auto 0.4 % (0.2-1.2); Eosinophils Absolute Auto 0.5 K/mm3 (0-0.3); Eosinophils Percent Auto 6.6 % (0-4.4); Hematocrit 38.1 % (37.0-47.0); Hemoglobin 11.4 g/dL (12.0-15.0); Immature Granulocyte Absolute 0.02 K/mm3 (0.00-0.031); Immature Granulocyte Percent A 0.3 % (0-0.5); Lymphocytes Absolute Auto 1.69 K/mm3 (0.9-3.2); Lymphocytes Percent Auto 22.9 % (18.3-44.2); Mean Corpuscular HGB Conc 29.9 g/dl (32-36); Mean Corpuscular Hemoglobin 26.6 pg (26-34); Mean Corpuscular Volume 88.8 fl (80-100); Mean Platelet Volume 10.6 fl (7.4-10.4); Monocytes Absolute Auto 0.7 K/mm3 (0.1-0.6); Neutrophils Absolute Auto 4.5 K/mm3 (1.3-6.7); Neutrophils Percent Auto 60.8 % (45.5-73.1); Platelet Count Result 261 k/mm3 (150-375); Red Blood Count 4.29 M/mm3 (4.2-5.4); White Blood Count 7.4 K/mm3 (4.5-10.0)
[2020-07-30 20:41] LABS: Platelet Estimate Adequate (Adequate)
[2020-07-30 20:42] LABS: Hypochromasia 2+ (NORMAL); INR 1.2; Prothrombin Time 16.2 Seconds (11.1-14.7)
[2020-07-30 20:53] LABS: Blood Urea Nitrogen 29 mg/dL (7-17); Calcium 9.2 mg/dL (8.4-10.2); Carbon Dioxide > 40 mmol/L (22-30); Chloride 96 mmol/L (98-107); Estimated CRCL calculation 66 ml/min; Estimated Glomerular Filt Rate > 60; Glucose 240 mg/dL (65-105); Potassium 3.5 mmol/L (3.4-5.0); Sodium 138 mmol/L (137-145)
[2020-07-30 20:56] LABS: Troponin I < 0.012 ng/mL (0.000-0.034)
[2020-07-30] MEDS: KETOROLAC 30 MG/ML VIAL (*BKC) IV PUSH (21:43)
--- NOTE | 2020-07-30 21:50 | ED.CHESTPAIN ---
HPI - Chest Pain General Chief Complaint: Chest Pain Stated Complaint: chest pain Time Seen by Provider: 07/30/20 20:58 History of Present Illness HPI narrative: Patient is a 75-year-old female who presents from her intermediate with left-sided chest pain. Its located right at her left breast. Is worse with palpation and physical movement. Has tried no medications for. Feels different than previous MIs. She has no fevers or chills or sweats. No nausea or vomiting. Recently diagnosed with pneumonia and hospitalized for altered mental status. Related Data Home Medications Medication Instructions Recorded Confirmed aspirin 81 mg tablet,delayed 81 mg PO DAILY 04/09/19 06/28/20 release atorvastatin 40 mg tablet 40 mg PO DAILY 04/09/19 06/28/20 clopidogrel 75 mg tablet 75 mg PO DAILY 04/09/19 06/28/20 gabapentin 300 mg capsule 600 mg PO BID 04/09/19 06/28/20 isosorbide dinitrate 30 mg tablet 30 mg PO DAILY tablet 04/09/19 06/28/20 levothyroxine 112 mcg tablet 112 mcg PO DAILY 04/09/19 06/28/20 lisinopril 40 mg tablet 40 mg PO DAILY 04/09/19 06/28/20 nitroglycerin 0.4 mg sublingual 0.4 mg SUBLINGUAL Q5M PRN 04/09/19 06/28/20 tablet meclizine 25 mg tablet 25 mg PO TID PRN 06/01/19 06/28/20 pantoprazole 40 mg tablet,delayed 40 mg PO BID tablet 06/01/19 06/28/20 release Lantus Solostar U-100 Insulin 50 unit SUB-Q DAILY 02/08/20 06/28/20 Combivent Respimat 1 puff INHALATION QID 06/28/20 06/28/20 Eliquis 5 mg PO BID 06/28/20 06/28/20 diclofenac sodium 1 ea TOPICAL BID 06/28/20 06/28/20 furosemide 40 mg PO QAM 06/28/20 06/28/20 guaifenesin 400 mg PO BID PRN 06/28/20 06/28/20 insulin lispro [Humalog KwikPen 12 unit SUBCUT TIDWMEAL 06/28/20 06/28/20 Insulin] ipratropium-albuterol 3 ml INHALATION Q4H PRN 06/28/20 06/28/20 metoprolol succinate 100 mg PO DAILY 06/28/20 06/28/20 cyanocobalamin (vitamin B-12) 1,000 mcg PO DAILY 07/30/20 Allergies Allergy/AdvReac Type Severity Reaction Status Date / Time codeine AdvReac Unknown Unknown Verified 06/27/20 18:44 [facility] Past Medical History Medical History (Updated 07/31/20 @ 00:29 by Chico Brar MD) Anemia Anxiety Aortic stenosis moderate based on echo 02/09/20 with severe aortic valve sclerosis Arthritis CAD (coronary artery disease) Cataracts, bilateral maturing CHF (congestive heart failure) echocardiogram 01/2020: EF of 55-60%, severe left ventricular wall hypertrophy, abnormal diastolic function, moderate aortic stenosis with a valve area of 1, severe aortic valve sclerosis Chronic kidney disease COPD (chronic obstructive pulmonary disease) Depression Essential (primary) hypertension GERD (gastroesophageal reflux disease) Gout Hearing loss Hypothyroidism Mixed hyperlipidemia Obesity NIRMALA on CPAP Peripheral neuropathy TIA (transient ischemic attack) Type 2 diabetes mellitus Ulcer Vision loss Vitamin D deficiency Surgical History Surgical History (Updated 06/27/20 @ 23:19 by Lissa Alexander DO) H/O inguinal hernia repair H/O tubal ligation History of cholecystectomy History of coronary artery stent placement total of 7 cardiac stents with reported last cardiac catheterization 2014 with no stents placed at that time History of umbilical hernia repair Family History Family History Father Hypertension Cerebrovascular accident CAD (coronary artery disease) Mother Acute myocardial infarction Diabetes mellitus Lung cancer Hypertension Social History Social History (Updated 06/27/20 @ 23:23 by Lissa Alexander DO) Social History: Ms. Thorpe lived at [facility] until January 2020. At that time she was hospitalized for COVID-19 pneumonia and after her COVID infection she was no longer ambulatory and had to be placed in intermediate. Primary care physician: Dr. Hamilton Tristan Code status: full code Healthcare power of deputy commonwealth's attorney: Lisa (daughter)
[2020-07-30 21:53] LABS: NT Pro B Type Natriuretic Pept 1160 PG/ML (5-100)
--- NOTE | 2020-07-30 22:29 | PC.NURSE ---
Pt presents to ED from skilled nursing with complaints of chest pain that was sudden onset. Pt states chest pain has subsided and denies all pain and discomfort at this time. DMD presented to bedside to update pt on poc; all questions and concerns addressed. Pt resting on cart in supine position with no complaints or concerns voiced. Call button and personal items within reach. Advised to press call button for assistance.
--- NOTE | 2020-07-30 23:11 | PC.NURSE ---
Spoke with daughter, Lisa Curtis, with consent from pt. Lisa updated on poc and all questions and concerns addressed. Will call back with pending lab results and updated poc.
[2020-07-30 23:51] LABS: Troponin I 0.015 ng/mL (0.000-0.034)
--- NOTE | 2020-07-31 00:23 | PC.NURSE ---
Pt on cart resting with no complaints or concerns voiced at this time. Pt advised of poc. Call button and personal items within reach. Advised to press call button for assistance.
--- NOTE | 2020-07-31 00:29 | PC.NURSE ---
EDMD at bedside to update pt on poc. All questions and concerns addressed.
[2020-07-31 00:30] VITALS: BP 165/71; PULSE 60; RESP 21; TEMP 37.2; O2SAT 100
--- NOTE | 2020-07-31 00:53 | PC.NURSE ---
Pt noted to be soiled. Bridget area cleansed, linens change and incontinence pads replaced. Pt repositioned in bed for comfort. Call button and personal items within reach. Pt aware that [facility] Advised to press call button for assistance.
--- NOTE | 2020-07-31 02:20 | PC.NURSE ---
Pt on phone speaking to daughter. Daughter noted to be yelling and cursing at pt. Nurse blog writer to bedside to speak with daughter and advised her that pt is due to be picked up by EMS soon. Daughter states that she will call pt later.
[2020-07-31 02:33] VITALS: BP 155/98; PULSE 95; RESP 18; TEMP 37.1; O2SAT 95
--- NOTE | 2020-07-31 02:35 | PC.NURSE ---
EMS arrived to ED for pt transport back to [facility].
== END 2020-07-31 02:40 ==
PROVIDERS: Emergency Medicine; Emergency Provider Emergency Medicine; PCP Internal Medicine
DX: R07.9 Chest pain, unspecified (principal); Z86.16 Personal history of COVID-19; Z95.5 Presence of coronary angioplasty implant and graft; I35.0 Nonrheumatic aortic (valve) stenosis; I25.10 Atherosclerotic heart disease of native coronary artery without angina pectoris; E11.22 Type 2 diabetes mellitus with diabetic chronic kidney disease; I13.0 Hypertensive heart and chronic kidney disease with heart failure and stage 1 through stage 4 chronic kidney disease, or unspecified chronic kidney disease; I50.9 Heart failure, unspecified; N18.9 Chronic kidney disease, unspecified; E11.42 Type 2 diabetes mellitus with diabetic polyneuropathy; J44.9 Chronic obstructive pulmonary disease, unspecified; E55.9 Vitamin D deficiency, unspecified; G47.33 Obstructive sleep apnea (adult) (pediatric); E66.9 Obesity, unspecified; Z68.41 Body mass index [BMI] 40.0-44.9, adult; E78.2 Mixed hyperlipidemia; E03.9 Hypothyroidism, unspecified; M10.9 Gout, unspecified; K21.9 Gastro-esophageal reflux disease without esophagitis; Z86.73 Personal history of transient ischemic attack (TIA), and cerebral infarction without residual deficits; Z79.4 Long term (current) use of insulin; I51.7 Cardiomegaly; I48.91 Unspecified atrial fibrillation; I45.9 Conduction disorder, unspecified; Z79.82 Long term (current) use of aspirin; Z79.01 Long term (current) use of anticoagulants
CPT/HCPCS: 36415; 71045; 80048; 83880; 84484; 85025; 85610; 85730; 93005; 96374; 99284; J1885

== ENCOUNTER 2020-09-03 15:01 | Emergency (ER) | payer MEDICARE, MEDICAID, SELFPAY ==
[2020-09-03] VITALS (7 sets, daily range): BP systolic 137–159; BP diastolic 60–91; PULSE 56–65; RESP 14–20; TEMP 36.6; O2SAT 94–99
--- NOTE | ~2020-09-03 | US_ITS ---
EXAMINATION: US venous doppler [facility] EXAM DATE: 09/03/2020 15:44 INDICATION: Left leg swelling. TECHNIQUE: Multiple grayscale, color flow and Doppler images of the left lower extremity deep venous system were obtained and reviewed. Comparison is made to prior examination from 02/08/2020. FINDINGS: The left common femoral, femoral and profunda veins demonstrate normal color flow, respirat ory variation, augmentation and compressibility. Compressibility, color flow confirmed within the le ft popliteal, posterior tibial, peroneal, and greater saphenous veins. Note made of a heterogeneous intramuscular distal aspect left thigh, was avascular and could represen t a hematoma. Can't exclude other intramuscular mass and recommend follow-up ultrasound in one month. Patient did note that there was possible injury to this leg a few weeks ago. IMPRESSION: 1. No left lower extremity deep venous thrombosis. 2. Heterogeneous lower thigh avascular region most consistent with intramuscular hematoma. One shanthi h follow-up recommended. Reviewed, dictated and finalized at location A. IMPRESSION: 1. No left lower extremity deep venous thrombosis. 2. Heterogeneous lower thigh avascular region most consistent with intramuscu lar hematoma. One month follow-up recommended.
--- NOTE | ~2020-09-03 | XR_ITS ---
EXAMINATION: XR chest 1V DATE: 09/03/2020 16:08 INDICATION: Shortness of breath. TECHNIQUE: A single frontal view of the chest was obtained. COMPARISON: Chest single view 07/30/2020, CT abdomen and pelvis 02/12/2020 FINDINGS: The lung volumes are normal. There are interstitial and airspace opacities in the mid and l ower lung zones. No pleural effusion or pneumothorax. Cardiomegaly is noted. IMPRESSION: 1. Stable interstitial and airspace opacities in the mid and lower lung zones, consistent with pulmon renetta edema versus pneumonia versus chronic lung disease. 2. Cardiomegaly. Reviewed, dictated and finalized at location B. IMPRESSION: 1. Stable interstitial and airspace opacities in the mid and lower lung zones, consistent with pulmonary edema versus pneumonia versus chronic lung disease. 2. Cardiomegaly.
--- NOTE | 2020-09-03 15:55 | ECG_ITS ---
Measurements Intervals [place] Rate: 57 P: [place]: 0 QRS: 69 QRSD: 135 T: 93 QT: 451 QTc: 439 Interpretive Statements ATRIAL FIBRILLATION WITH SLOW VENTRICULAR RESPONSE INTRAVENTRICULAR CONDUCTION DELAY BORDERLINE R WAVE PROGRESSION, ANTERIOR LEADS BORDERLINE ST-T WAVE ABNORMALITY- HIGH LATERAL LEADS BASELINE ARTIFACT- I, II, III, AVR, AVL, AVF ABNORMAL ECG Electronically Signed On 09-03-2020 16:13:28 CDT by Jimenez Mendez D.O.
--- NOTE | 2020-09-03 16:13 | ED.GENADULT ---
HPI - General Adult General Chief complaint: Weakness Stated complaint: SOB/CP/ABD PAIN Time Seen by Provider: 09/03/20 15:03 History of Present Illness HPI narrative: Patient is a 75-year-old female who presents ER with an abnormal chest x-ray. According to the long-term patient has persistent abnormality on the chest x-ray that has not gone away despite rounds of antibiotics. They are now concerned that it could be related to pulmonary edema. Patient has no fevers or chills or sweats. No productive cough. She continues to require 2 L of oxygen by nasal cannula which is chronic for her. Patient does report some new swelling in her left lower extremity is unsure why. Denies known trauma. Related Data Home Medications Medication Instructions Recorded Confirmed aspirin 81 mg tablet,delayed 81 mg PO DAILY 04/09/19 06/28/20 release atorvastatin 40 mg tablet 40 mg PO DAILY 04/09/19 06/28/20 clopidogrel 75 mg tablet 75 mg PO DAILY 04/09/19 06/28/20 gabapentin 300 mg capsule 600 mg PO BID 04/09/19 06/28/20 isosorbide dinitrate 30 mg tablet 30 mg PO DAILY tablet 04/09/19 06/28/20 levothyroxine 112 mcg tablet 112 mcg PO DAILY 04/09/19 06/28/20 lisinopril 40 mg tablet 40 mg PO DAILY 04/09/19 06/28/20 nitroglycerin 0.4 mg sublingual 0.4 mg SUBLINGUAL Q5M PRN 04/09/19 06/28/20 tablet meclizine 25 mg tablet 25 mg PO TID PRN 06/01/19 06/28/20 pantoprazole 40 mg tablet,delayed 40 mg PO BID tablet 06/01/19 06/28/20 release Lantus Solostar U-100 Insulin 50 unit SUB-Q DAILY 02/08/20 06/28/20 Combivent Respimat 1 puff INHALATION QID 06/28/20 06/28/20 Eliquis 5 mg PO BID 06/28/20 06/28/20 diclofenac sodium 1 ea TOPICAL BID 06/28/20 06/28/20 furosemide 40 mg PO QAM 06/28/20 06/28/20 guaifenesin 400 mg PO BID PRN 06/28/20 06/28/20 insulin lispro [Humalog KwikPen 12 unit SUBCUT TIDWMEAL 06/28/20 06/28/20 Insulin] ipratropium-albuterol 3 ml INHALATION Q4H PRN 06/28/20 06/28/20 metoprolol succinate 100 mg PO DAILY 06/28/20 06/28/20 cyanocobalamin (vitamin B-12) 1,000 mcg PO DAILY 07/30/20 Allergies Allergy/AdvReac Type Severity Reaction Status Date / Time codeine AdvReac Unknown Unknown Verified 06/27/20 18:44 Review of Systems Review of Systems: All systems reviewed & are unremarkable except as noted in HPI and below Constitutional: Constitutional: Denies chills, Denies fever(s) and Denies weakness ENT: Denies nasal congestion and Denies sore throat Cardiovascular: Cardiovascular: Denies chest pain, Denies rapid heart rate and Denies radiating jaw, neck or arm pain Respiratory: Respiratory: Denies cough and Denies dyspnea Gastrointestinal: Gastrointestinal: Denies abdominal pain, Denies nausea and Denies vomiting Musculoskeletal: Comments: LLE swelling PMFSH Past Medical History Medical History (Updated 09/03/20 @ 17:49 by Chico Brar MD) Anemia Anxiety Aortic stenosis moderate based on echo 02/09/20 with severe aortic valve sclerosis Arthritis CAD (coronary artery disease) Cataracts, bilateral maturing CHF (congestive heart failure) echocardiogram 01/2020: EF of 55-60%, severe left ventricular wall hypertrophy, abnormal diastolic function, moderate aortic stenosis with a valve area of 1, severe aortic valve sclerosis Chronic kidney disease COPD (chronic obstructive pulmonary disease) Depression Essential (primary) hypertension GERD (gastroesophageal reflux disease) Gout Hearing loss Hypothyroidism Mixed hyperlipidemia Obesity NIRMALA on CPAP Peripheral neuropathy TIA (transient ischemic attack) Type 2 diabetes mellitus Ulcer Vision loss Vitamin D deficiency Surgical History Surgical History (Updated 06/27/20 @ 23:19 by Lissa Alexander DO) H/O inguinal hernia repair H/O tubal ligation History of cholecystectomy History of coronary artery stent placement total of 7 cardiac stents with reported last cardiac catheterization 2014 with no stents placed at that time History of umbilical hernia
[2020-09-03 16:29] LABS: Basophils Percent Auto 0.3 % (0.2-1.2); Eosinophils Absolute Auto 0.6 K/mm3 (0-0.3); Hematocrit 38.4 % (37.0-47.0); Hemoglobin 11.6 g/dL (12.0-15.0); Immature Granulocyte Absolute 0.01 K/mm3 (0.00-0.031); Immature Granulocyte Percent A 0.1 % (0-0.5); Lymphocytes Absolute Auto 1.87 K/mm3 (0.9-3.2); Lymphocytes Percent Auto 27.6 % (18.3-44.2); Mean Corpuscular HGB Conc 30.2 g/dl (32-36); Mean Corpuscular Hemoglobin 26.9 pg (26-34); Mean Corpuscular Volume 89.1 fl (80-100); Mean Platelet Volume 10.6 fl (7.4-10.4); Monocytes Absolute Auto 0.5 K/mm3 (0.1-0.6); Neutrophils Absolute Auto 3.7 K/mm3 (1.3-6.7); Platelet Count Result 279 k/mm3 (150-375); Red Blood Count 4.31 M/mm3 (4.2-5.4); Red Cell Distribution Width 16.1 % (11.5-14.5); White Blood Count 6.8 K/mm3 (4.5-10.0)
[2020-09-03 16:46] LABS: Blood Urea Nitrogen 21 mg/dL (7-17); Calcium 9.7 mg/dL (8.4-10.2); Carbon Dioxide > 40 mmol/L (22-30); Chloride 99 mmol/L (98-107); Estimated CRCL calculation 50 ml/min; Estimated Glomerular Filt Rate 49; Glucose 207 mg/dL (65-105); Potassium 3.6 mmol/L (3.4-5.0); Sodium 140 mmol/L (137-145)
[2020-09-03 16:50] LABS: NT Pro B Type Natriuretic Pept 1500 pg/mL (5-100)
--- NOTE | 2020-09-03 19:58 | PC.NURSE ---
[facility] here.
== END 2020-09-03 20:00 ==
PROVIDERS: Emergency Provider Emergency Medicine; PCP Internal Medicine
DX: M79.89 Other specified soft tissue disorders (principal); D64.9 Anemia, unspecified; F41.9 Anxiety disorder, unspecified; M19.90 Unspecified osteoarthritis, unspecified site; I25.10 Atherosclerotic heart disease of native coronary artery without angina pectoris; I50.9 Heart failure, unspecified; I13.0 Hypertensive heart and chronic kidney disease with heart failure and stage 1 through stage 4 chronic kidney disease, or unspecified chronic kidney disease; E11.22 Type 2 diabetes mellitus with diabetic chronic kidney disease; N18.9 Chronic kidney disease, unspecified; Z79.4 Long term (current) use of insulin; G47.30 Sleep apnea, unspecified
CPT/HCPCS: 36415; 71045; 80048; 83880; 85025; 93005; 93971; 99284

== ENCOUNTER 2021-04-25 13:04 | Inpatient (IN) | payer MEDICARE, MEDICAID, SELFPAY ==
[2021-04-25] VITALS (57 sets, daily range): BP systolic 56–138; BP diastolic 21–125; PULSE 70–100; RESP 12–28; TEMP 36.7–36.8; O2SAT 89–100
--- NOTE | ~2021-04-25 | CT_ITS ---
EXAMINATION: CT abdomen pelvis wo con EXAM DATE: 04/25/2021 17:01 INDICATION: Left lower quadrant pain. TECHNIQUE: Spiral CT of the abdomen and pelvis was performed without contrast. Axial, coronal and sag ittal images were reviewed. The dose-length product (DLP) for this examination was 1650.23 mGy-cm. The exposure was tailored according to patient size (auto mA exposure control), and iterative reconst ruction (ASIR) was used as additional dose reduction technique. Comparison is made to prior examinati on from 02/12/2020. FINDINGS: There is cardiomegaly. The main, central pulmonary arteries are dilated which can indicate elevated pulmonary arterial pressure, pulmonary arterial hypertension. There is moderate amount of bibasilar airspace disease, improvement compared to the previously seen extensive airspace disease in January. Interval development of 2 small regions of liver hypodensity, one in the inferior margin of the right liver lobe and the other the inferior margin of the left liver lobe lateral segment. These regions a re nonspecific but given the low density, liver infarctions should be considered, but could be subacu te given absence of volume loss. There is old region of right renal cortical calcification, scarring. There is moderate bilateral verónica l cortical thinning. There is an exophytic right renal lesion probably mildly proteinaceous cyst mary ellen uring 4 cm. Smaller similar-appearing lesions in the left kidney. No hydronephrosis. Garcia catheter w ithin a collapsed bladder. Uterus is anteverted and unremarkable. Possible 1.4 cm uncinate process cystic pancreatic lesion. The differential diagnosis includes pseudo cyst, intraductal papillary mucinous neoplasm (IPMN), mucinous cystic neoplasm (MCN), and the less co mmon serous cystadenoma and neuroendocrine tumor. Correlate for history of pancreatitis. Difficult to definitively confirm or identified on prior studies for comparison. There is liquid stool, correlate for diarrhea. No colonic wall thickening or pneumatosis. No small ibrahima wel dilation. There are no osteoblastic or osteolytic lesions identified. IMPRESSION: 1. Moderate amount of basilar airspace disease, could be edema, pneumonia or chronic, but with inter gasper improvement compared to January. 2. Cardiomegaly and pulmonary arterial hypertension. 3. Development of 2 small geographically shaped liver hypodense regions which are nonspecific but co uld be subacute infarctions. Is there liver enzyme abnormality? 4. Liquid stool, diarrhea or gastroenteritis. 5. Renal scarring and atrophy. 6. Possible incidental small cystic pancreatic lesion. Consider 2 year follow-up CT. Reviewed, dictated and finalized at location A. TURE METER OPERATOR IMPRESSION: 1. Moderate amount of basilar airspace disease, could be edema, pneumonia or c hronic, but with interval improvement compared to January. 2. Cardiomegaly and pulmonary arterial hypertension. 3. Development of 2 small geographically shaped liver hypodense regions which are nonspecific but could be subacute infarctions. Is there liver enzyme abnorm ality? 4. Liquid stool, diarrhea or gastroenteritis. 5. Renal scarring and atrophy. 6. Possible incidental small cystic pancreatic lesion. Consider 2 year follow- up CT.
--- NOTE | ~2021-04-25 | XR_ITS ---
EXAMINATION: XR chest 1V portable EXAM DATE: 04/25/2021 18:05 INDICATION: Cough . TECHNIQUE: Portable AP frontal chest x-ray was obtained. Comparison is made to prior examination from 09/03/2020. FINDINGS: There is cardiomegaly. There is moderate amount of bilateral airspace disease, differential diagnosis including edema, pneumonia, chronic interstitial lung disease, appearance not significantl y changed compared to August. No pneumothorax. No pleural effusion (correlation was made with CT earlier same date). There is aortic arteriosclerosis. There are mild bony degenerative changes. IMPRESSION: 1. Moderate amount of airspace disease, differential diagnosis including edema, pneumonia, chronic i nterstitial lung disease. 2. Cardiomegaly. Reviewed, dictated and finalized at location A. E OB IMPRESSION: 1. Moderate amount of airspace disease, differential diagnosis including edema , pneumonia, chronic interstitial lung disease. 2. Cardiomegaly.
[2021-04-25] MEDS: SODIUM CHLORIDE 0.9% IV 1,000 ML 999 ML IV CONT ×4 (13:46→18:35)
--- NOTE | 2021-04-25 15:08 | PC.NURSE ---
patients daughter at bedside giving patient po fluids after being told patient may not be able to swallow and might aspirate fluids. patient coughing after being given fluids
--- NOTE | 2021-04-25 15:23 | ED.GENADULT ---
HPI - General Adult General Chief complaint: Altered Mental Status Stated complaint: low bp Time Seen by Provider: 04/25/21 13:11 History of Present Illness HPI narrative: Patient is a 76-year-old female who presents ER from her long-term with decreased mental status and low blood pressure. Patient is currently on hospice at the facility however she has a full code in her chart. Recently diagnosed with UTI and placed on Macrobid. According to daughter patient became debilitated a little over a year ago. She has been unable to stand up and walk since then. Patient has had progressive debility and that is why she is on hospice. Related Data Home Medications Medication Instructions Recorded Confirmed aspirin 81 mg tablet,delayed 81 mg PO DAILY 04/09/19 06/28/20 release atorvastatin 40 mg tablet 40 mg PO DAILY 04/09/19 06/28/20 clopidogrel 75 mg tablet 75 mg PO DAILY 04/09/19 06/28/20 gabapentin 300 mg capsule 600 mg PO BID 04/09/19 06/28/20 isosorbide dinitrate 30 mg tablet 30 mg PO DAILY tablet 04/09/19 06/28/20 levothyroxine 112 mcg tablet 112 mcg PO DAILY 04/09/19 06/28/20 lisinopril 40 mg tablet 40 mg PO DAILY 04/09/19 06/28/20 nitroglycerin 0.4 mg sublingual 0.4 mg SUBLINGUAL Q5M PRN 04/09/19 06/28/20 tablet meclizine 25 mg tablet 25 mg PO TID PRN 06/01/19 06/28/20 pantoprazole 40 mg tablet,delayed 40 mg PO BID tablet 06/01/19 06/28/20 release Lantus Solostar U-100 Insulin 50 unit SUB-Q DAILY 02/08/20 06/28/20 Combivent Respimat 1 puff INHALATION QID 06/28/20 06/28/20 Eliquis 5 mg PO BID 06/28/20 06/28/20 diclofenac sodium 1 ea TOPICAL BID 06/28/20 06/28/20 furosemide 40 mg PO QAM 06/28/20 06/28/20 guaifenesin 400 mg PO BID PRN 06/28/20 06/28/20 insulin lispro [Humalog KwikPen 12 unit SUBCUT TIDWMEAL 06/28/20 06/28/20 Insulin] ipratropium-albuterol 3 ml INHALATION Q4H PRN 06/28/20 06/28/20 metoprolol succinate 100 mg PO DAILY 06/28/20 06/28/20 cyanocobalamin (vitamin B-12) 1,000 mcg PO DAILY 07/30/20 Allergies Allergy/AdvReac Type Severity Reaction Status Date / Time codeine AdvReac Unknown Unknown Verified 06/27/20 18:44 Review of Systems Review of Systems: ROS unobtainable: Yes unobtainable due to mental status [facility] Past Medical History Medical History (Updated 04/26/21 @ 00:22 by Chico Brar MD) Anemia Anxiety Aortic stenosis moderate based on echo 02/09/20 with severe aortic valve sclerosis Arthritis CAD (coronary artery disease) Cataracts, bilateral maturing CHF (congestive heart failure) echocardiogram 01/2020: EF of 55-60%, severe left ventricular wall hypertrophy, abnormal diastolic function, moderate aortic stenosis with a valve area of 1, severe aortic valve sclerosis Chronic kidney disease COPD (chronic obstructive pulmonary disease) Depression Essential (primary) hypertension GERD (gastroesophageal reflux disease) Gout Hearing loss Hypothyroidism Mixed hyperlipidemia Obesity NIRMALA on CPAP Peripheral neuropathy TIA (transient ischemic attack) Type 2 diabetes mellitus Ulcer Vision loss Vitamin D deficiency Surgical History Surgical History (Updated 06/27/20 @ 23:19 by Lissa Alexander DO) H/O inguinal hernia repair H/O tubal ligation History of cholecystectomy History of coronary artery stent placement total of 7 cardiac stents with reported last cardiac catheterization 2014 with no stents placed at that time History of umbilical hernia repair Family History Family History Father Hypertension Cerebrovascular accident CAD (coronary artery disease) Mother Acute myocardial infarction Diabetes mellitus Lung cancer Hypertension Social History Social History (Updated 06/27/20 @ 23:23 by Lissa Alexander DO) Social History: Ms. Thorpe lived at [facility] until January 2020. At that time she was hospitalized for COVID-19 pneumonia and after her COVID infection she wa
[2021-04-25 15:48] LABS: Hematocrit 39.9 % (37.0-47.0); Hemoglobin 11.5 g/dL (12.0-15.0); Mean Corpuscular HGB Conc 28.8 g/dl (32-36); Mean Corpuscular Hemoglobin 26.4 pg (26-34); Mean Corpuscular Volume 91.7 fl (80-100); Mean Platelet Volume 10.8 fl (7.4-10.4); Platelet Count Result 334 k/mm3 (150-375); Red Blood Count 4.35 M/mm3 (4.2-5.4); Red Cell Distribution Width 16.5 % (11.5-14.5)
[2021-04-25 15:57] LABS: Lactic Acid Reflex 1.8 mmol/L (0.7-2.1)
[2021-04-25 16:01] LABS: Alanine Aminotransferase 17 U/L (4-35); Albumin Level 3.5 g/dL (3.5-5.1); Alkaline Phosphatase 100 U/L (38-126); Anion Gap 10 mmol/L (8-16); Aspartate Amino Transferase 52 U/L (14-36); Bilirubin,Total 0.6 mg/dL (0.2-1.3); Blood Urea Nitrogen 46 mg/dL (7-17); CRP 1.8 mg/dL (<1.0); Calcium 9.1 mg/dL (8.4-10.2); Carbon Dioxide 33 mmol/L (22-30); Chloride 96 mmol/L (98-107); Estimated CRCL calculation 24 ml/min; Estimated Glomerular Filt Rate 18; Glucose 101 mg/dL (65-110); Potassium 4.2 mmol/L (3.4-5.0); Sodium 139 mmol/L (137-145)
[2021-04-25 16:04] LABS: Prothrombin Time 21.9 Seconds (11.1-14.7)
[2021-04-25 16:27] LABS: Anisocytosis 2+ (NORMAL); Band Neutrophils Percent 10 % (0-6); Lymphocytes Absolute Manual 2.97 K/mm3 (1.1-4.5); Monocytes Absolute Manual 1.65 K/mm3 (0.1-0.90); Monocytes Percent Manual 5 % (3-9); Neutrophils Absolute Manual 28.38 K/mm3 (1.7-7.2); Neutrophils Percent Manual 76 % (46-73); Platelet Estimate Adequate (Adequate); Total Cells Counted 100
[2021-04-25 16:28] LABS: Hypochromasia 1+ (NORMAL)
[2021-04-25 16:45] LABS: Add Urine Microscopic? NO; Appearance Urine Clear (Clear); Bilirubin Urine Negative (Negative); Blood Urine Negative (Negative); Color Urine Yellow (Yellow); Glucose Urine UA Negative (Negative); Ketones Urine Negative (Negative); Leukocyte Esterase Ur Negative LEU/UL (Negative); Nitrate Urine Negative (Negative); Protein Urine Negative (Negative); Urobilinogen Urine Negative mg/dL (<2.0)
[2021-04-25 17:39] LABS: Alveolar/Arterial O2 Gradient 410.8 mmHg; Base Excess ABG -0.4 mEq/l (+/-2.0); Carboxyhemoglobin 0.4 % THb (0-2.0); Fractional Inspired Oxygen 100 %; HCO3 ABG 29.7 mEq/l (22.0-26.0); Methemoglobin ABG 0.3 %THb (0-1.5); Oxygen Content ABG 15.1 %vol (16.0-22.0); Oxygen Saturation ABG 99.1 % (95.0-100.0); Oxyhemoglobin 97.8 % THb (90.0-100.0); PO2 ABG 218.6 mmHg (80.0-100.0); PO2 FiO2 Ratio Arterial Blood 2.19 %; Reduced Hemoglobin 1.5 %THb (0-5.0); Total Hemoglobin 10.6 g/dL (12.0-18.0)
[2021-04-25 17:42] LABS: pH ABG 7.168 (7.350-7.450)
[2021-04-25 17:43] LABS: Device NON-REBREATHER MASK; Modified Allen's Test Pass; PCO2 ABG 83.6 mmHg (35.0-45.0); Site Drawn LEFT RADIAL
[2021-04-25] MEDS: SODIUM CHLORIDE 0.9% IV 1,000 ML 125 ML IV CONT (22:43)
[2021-04-26] VITALS (45 sets, daily range): BP systolic 63–130; BP diastolic 33–81; PULSE 80–109; RESP 14–24; TEMP 35.5–36.8; O2SAT 91–100; BMI 54.8
--- NOTE | 2021-04-26 04:02 | PC.NURSE ---
Report to [facility] for 204 IMU.
--- NOTE | 2021-04-26 05:13 | PC.NURSE ---
This patient, Tracy Thorpe, was received from [ER ] on 04/26/21 at 0500. Patient/family oriented to unit policies and routines
--- NOTE | 2021-04-26 05:20 | PC.NURSE ---
Pt arrived to floor from ER at 0500. Initial B/P was 78/38. Trendelenburg patient 0505 B/P was 75/45. At 0510 B/P was 61/31, contacted Dr. Alexander who stated pt is on comfort measures only.
--- NOTE | 2021-04-26 05:31 | PM.IMHP ---
H&P: HPI History of Present Illness Date/Time: 04/26/21 05:31 Chief Complaint: low blood pressure Narrative: 76-year-old female with a past medical history chronic hypoxic hypercapnic respiratory failure, CHF, chronic kidney disease, obstructive sleep apnea and frequent UTIs who presented to the ER from the [facility] facility due to low blood pressures and decreased level of consciousness. The patient is evidently on [facility] hospice however patient was still listed as a full code her chart. Therefore, the residential staff sent the patient into the ER for evaluation for hypotension. The patient has been debilitated and bedbound for over a year. After she had been hospitalized for COVID in January 2020. She has been unable to sit up stand or walk. She has had progressive decline the which resulted in her being placed on hospice. The patient is usually alert orient x3 and was alert oriented at 11:00 a.m.. By lab in the patient was altered and alert orient x1. On arrival to the ER the patient was noted to be markedly hypotensive. She received a total of 5 L of normal saline bolus in the ER. She was also hypoxic and found to be markedly hypercapnic with severe respiratory acidosis. She was placed on BiPAP. Given the patient was a hospice patient the ER physician had extensive discussion with the patient's daughter Lisa (HERNAN) and the patient's sister Shameka about the patient's severity of illness and treatment options. The likelihood of the patient coming off the ventilator she were ever to be and debated is virtually 0. The potential for central line and pressor was discussed with the family as well. After multiple discussions the family decided to make the patient had DNR. However they were not ready to withdraw care and would like to continue for the patient received antibiotics, fluids and BiPAP. After the patient arrived to the IMU patient's blood pressures again dropped. I went to evaluate the patient and she was on BiPAP. She was pulling very small tidal volumes and a respiratory rate in the mid 20s. I did make adjustments to the BiPAP with a IPAP of 20 in a PEEP of 8. The patient was maintaining oxygen saturations although there was a poor plastic. The BiPAP was set at 40% FiO2. With BiPAP adjustments the patient was getting between 3 or 50-500 and tidal volume every 3rd or 4th breath. There was very little leak around the mask but the patient was still not ventilating well. PMFSH Past Medical History Medical History Anemia Anxiety Aortic stenosis moderate based on echo 02/09/20 with severe aortic valve sclerosis Arthritis CAD (coronary artery disease) Cataracts, bilateral maturing CHF (congestive heart failure) echocardiogram 01/2020: EF of 55-60%, severe left ventricular wall hypertrophy, abnormal diastolic function, moderate aortic stenosis with a valve area of 1, severe aortic valve sclerosis Chronic kidney disease COPD (chronic obstructive pulmonary disease) Depression Essential (primary) hypertension GERD (gastroesophageal reflux disease) Gout Hearing loss Hypothyroidism Mixed hyperlipidemia Obesity NIRMALA on CPAP Peripheral neuropathy TIA (transient ischemic attack) Type 2 diabetes mellitus Ulcer Vision loss Vitamin D deficiency Surgical History Surgical History (Updated 06/27/20 @ 23:19 by Lissa Alexander DO) H/O inguinal hernia repair H/O tubal ligation History of cholecystectomy History of coronary artery stent placement total of 7 cardiac stents with reported last cardiac catheterization 2014 with no stents placed at that time History of umbilical hernia repair Family History Family History Father Hypertension Cerebrovascular accident CAD (coronary artery disease) Mother Acute myocardial infarction Diabetes mellitus Lung cancer Hypertension Social History Social H
[2021-04-26 06:21] LABS: Basophils Absolute Auto 0.1 K/mm3 (0.0-0.1); Basophils Percent Auto 0.3 % (0.2-1.2); Hematocrit 34.1 % (37.0-47.0); Hemoglobin 9.6 g/dL (12.0-15.0); Immature Granulocyte Absolute 0.15 K/mm3 (0.00-0.031); Immature Granulocyte Percent A 0.5 % (0-0.5); Lymphocytes Absolute Auto 1.27 K/mm3 (0.9-3.2); Lymphocytes Percent Auto 4.2 % (18.3-44.2); Mean Corpuscular HGB Conc 28.2 g/dl (32-36); Mean Corpuscular Hemoglobin 26.5 pg (26-34); Mean Corpuscular Volume 94.2 fl (80-100); Monocytes Absolute Auto 2.3 K/mm3 (0.1-0.6); Monocytes Percent Auto 7.4 % (2.6-8.5); Neutrophils Absolute Auto 26.6 K/mm3 (1.3-6.7); Neutrophils Percent Auto 87.6 % (45.5-73.1); Platelet Count Result 264 k/mm3 (150-375); Red Blood Count 3.62 M/mm3 (4.2-5.4); Red Cell Distribution Width 16.5 % (11.5-14.5); White Blood Count 30.4 K/mm3 (4.5-10.0)
[2021-04-26 06:26] LABS: INR 1.7; Prothrombin Time 19.2 Seconds (11.1-14.7)
[2021-04-26 06:31] LABS: Lactic Acid Reflex 0.9 mmol/L (0.7-2.1)
[2021-04-26 06:34] LABS: Alanine Aminotransferase 13 U/L (4-35); Alkaline Phosphatase 69 U/L (38-126); Anion Gap 10 mmol/L (8-16); Aspartate Amino Transferase 49 U/L (14-36); Bilirubin,Total 0.3 mg/dL (0.2-1.3); Blood Urea Nitrogen 48 mg/dL (7-17); Calcium 7.8 mg/dL (8.4-10.2); Carbon Dioxide 23 mmol/L (22-30); Chloride 106 mmol/L (98-107); Estimated CRCL calculation 28 ml/min; Estimated Glomerular Filt Rate 22; Glucose 168 mg/dL (65-110); Potassium 4.3 mmol/L (3.4-5.0); Sodium 139 mmol/L (137-145)
--- NOTE | 2021-04-26 06:54 | ADMGEN ---
This patient, Tracy Thorpe, was admitted to IMU Room 204-01 on 04/26/20 at 0500. Patient/family oriented to hospital policies and general routines including ID bracelet, bed and alarms, visiting hours, pain management, procedures, bathroom and other care routines, personal items, smoking policy, room service/diet, and visiting hours. Pt unable to answer questions and no family present at time of arrival. H&P obtained from previous admission and penitentiary paperwork. Information on how to activate the Rapid Response Team has been discussed. Patient/Family are encouraged to report perceived risks to care and to ask questions if they do not understand what they are told or what they should do.
[2021-04-26 08:09] LABS: Glucose Point of Care 166 mg/dl (65-105)
[2021-04-26] MEDS: SODIUM CHLORIDE 0.9% IV 500 ML IV CONT (08:12)
[2021-04-26] MEDS: SODIUM CHLORIDE 0.9% IV 1,000 ML 125 ML IV CONT ×3 (08:12→22:35)
[2021-04-26 10:00] LABS: Alveolar/Arterial O2 Gradient 106.7 mmHg; Base Excess ABG -4.1 mEq/l (+/-2.0); Carboxyhemoglobin 0.3 % THb (0-2.0); Fractional Inspired Oxygen 40 %; HCO3 ABG 25.6 mEq/l (22.0-26.0); Methemoglobin ABG 0.3 %THb (0-1.5); Oxygen Content ABG 14.6 %vol (16.0-22.0); Oxygen Saturation ABG 94.6 % (95.0-100.0); Oxyhemoglobin 94.5 % THb (90.0-100.0); PO2 ABG 93.5 mmHg (80.0-100.0); PO2 FiO2 Ratio Arterial Blood 2.34 %; Reduced Hemoglobin 4.9 %THb (0-5.0); Total Hemoglobin 10.9 g/dL (12.0-18.0)
[2021-04-26 10:02] LABS: Device NON-INVASIVE VENT; Non-Invasive Inspiratory Pressure 20 CMH2O; Non-Invasive Vent Rate 22 /MIN; PCO2 ABG 73.9 mmHg (35.0-45.0); Site Drawn RIGHT BRACHIAL; pH ABG 7.157 (7.350-7.450)
[2021-04-26 10:03] LABS: Non-Invasive Expiratory Pressure 8 CMH2O
[2021-04-26] MEDS: LORazepam INJ (*CRX) 2 MG/ML VIAL 1 MG IV PUSH ×2 (13:32→18:29)
[2021-04-26] MEDS: PANTOPRAZOLE SODIUM IV 40 MG VIAL IV PUSH (13:33)
[2021-04-26] MEDS: LEVOTHYROXINE SODIUM INJ 100 MCG/5 ML VIAL 56 MCG IV PUSH (13:33)
--- NOTE | 2021-04-26 15:55 | PCRCNOTE ---
Window of time for administration has passed. See next scheduled administration.
--- NOTE | 2021-04-26 17:14 | PM.IMPN ---
Progress Note: A&P Assessment and Plan (1) Septic shock: Code(s): A41.9 - Sepsis, unspecified organism; R65.21 - Severe sepsis with septic shock Status: Acute (2) Severe sepsis: Code(s): A41.9 - Sepsis, unspecified organism; R65.20 - Severe sepsis without septic shock Status: Acute (3) Acute kidney injury: Code(s): N17.9 - Acute kidney failure, unspecified Status: Acute (4) Acute hypercapnic respiratory failure: Code(s): J96.02 - Acute respiratory failure with hypercapnia Status: Acute (5) Colitis: Code(s): K52.9 - Noninfective gastroenteritis and colitis, unspecified Status: Acute (6) Hypertension: Code(s): I10 - Essential (primary) hypertension Status: Acute Additional Plan # septic shock secondary to pneumonia versus intra-abdominal infection # gastroenteritis # metabolic acidosis -antibiotics: Zosyn -IV fluids normal saline 125 cc/hour, patient appears to have 4.5 L bolus overnight -anxiety: P.r.n. Ativan -if the metabolic acidosis worsens that will not be compatible with life -lactic acid only 0.9 # acute kidney injury -likely secondary to shock, continue IV fluids -unknown underlying CKD -creatinine 2.2 # acute hypercapnic respiratory failure -continue BiPAP 12/12, patient may need to be intubated family does not withdraw care -p.r.n. 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 they will talk to hospice tonight Disposition: Pending family discussion. Very poor prognosis either way Subjective Date/time seen: 04/26/21 17:14 Patient seen examined. Patient apparently has been on hospice in the past with [facility] however she was listed as full code in long-term brought her to the ED. daughter appears not to have a proper understanding of all hospice is. Patient is unable to advocate for herself. Her daughter Lisa is the POA and also the only child. We had an extensive discussion about quality of life goals of care. Patient has been bed-bound for the over last year and now may need to be on a ventilator with long-term trach to trach and PEG with poor quality of life. Patient would like to talk to her aunt prior to making any decisions. Patient to meet with hospice agency this evening around 5:00 p.m.. Patient is full code until then. Patient is persistently acidotic despite BiPAP and hypercarbic, repeat ABG shows pH 7.157, pCO2 73.9 with a BiPAP setting of 20/8. WBC still significant elevated 30,000. Review of Systems Review of Systems: ROS unobtainable: Yes unobtainable due to medical condition Exam Narrative: - GENERAL: Morbidly obese chronically ill-appearing woman - EYES: Pupils reactive - HENT: With BiPAP mask over face - LUNGS: Coarse lung sounds throughout - CARDIOVASCULAR: Regular rate and rhythm. - ABDOMEN: Soft, nontender, nondistended, very obese. - : Garcia catheter in place - EXTREMITIES: No edema. Peripheral pulses 2+. - NEUROLOGIC: Unable to assess, obtunded - PSYCHIATRIC: not responding to any questions, unable to assess orientation. Very anxious, uncomfortable, in respiratory distress. - SKIN: No rashes or lesions. Objective Data Vital Signs Vital Signs: Vital Signs - 24 hr 04/25/21 17:45 04/25/21 18:00 04/25/21 18:11 Temperature Pulse Rate 82 Respiratory Rate 23 H Blood Pressure Pulse Oximetry 99 99 94 04/25/21 18:15 04/25/21 18:21 04/25/21 18:30 Temperature Pulse Rate Respiratory Rate Blood Pressure 81/71 L Pulse Ox
[2021-04-26] MEDS: ARTIFICIAL TEARS OPHTH SOLN 15 ML BOTTLE 2 DROP EACH EYE (18:39)
[2021-04-26] MEDS: IPRATROPIUM BR 0.02% INH SOLN 0.5 MG/2.5 ML VIAL INHALATION (20:50)
[2021-04-26] MEDS: ALBUTEROL SULFATE NEB 2.5 MG/0.5 ML INH INHALATION ×2 (20:51→20:52)
[2021-04-27] VITALS (26 sets, daily range): BP systolic 89–152; BP diastolic 60–106; PULSE 84–118; RESP 22–29; TEMP 36.4–36.9; O2SAT 91–100
[2021-04-27 00:38] LABS: Glucose Point of Care 217 mg/dl (65-105)
[2021-04-27] MEDS: IPRATROPIUM BR 0.02% INH SOLN 0.5 MG/2.5 ML VIAL INHALATION ×4 (01:50→21:12)
[2021-04-27] MEDS: ALBUTEROL SULFATE NEB 2.5 MG/0.5 ML INH INHALATION ×4 (01:50→21:12)
[2021-04-27 04:03] LABS: Glucose Point of Care 213 mg/dl (65-105)
[2021-04-27] MEDS: INSULIN ASPART (*BKC) 100 UNITS/ML SUB-Q ×4 (04:30→23:02)
[2021-04-27 04:59] LABS: Alveolar/Arterial O2 Gradient 100.8 mmHg; Carboxyhemoglobin 0.3 % THb (0-2.0); Fractional Inspired Oxygen 35 %; HCO3 ABG 25.8 mEq/l (22.0-26.0); Methemoglobin ABG 0.3 %THb (0-1.5); Oxygen Content ABG 14.8 %vol (16.0-22.0); Oxygen Saturation ABG 93.7 % (95.0-100.0); Oxyhemoglobin 93.4 % THb (90.0-100.0); PCO2 ABG 59.6 mmHg (35.0-45.0); PO2 ABG 79.5 mmHg (80.0-100.0); PO2 FiO2 Ratio Arterial Blood 2.27 %; Total Hemoglobin 11.2 g/dL (12.0-18.0)
[2021-04-27 05:03] LABS: Device BIPAP; Modified Allen's Test Unable to perform; Site Drawn LEFT RADIAL; pH ABG 7.255 (7.350-7.450)
[2021-04-27 05:04] LABS: Expiratory Pressure 8 cmH2O; Inspiratory Pressure 20 cmH2O
[2021-04-27 05:31] LABS: Basophils Percent Auto 0.2 % (0.2-1.2); Hematocrit 32.5 % (37.0-47.0); Hemoglobin 9.5 g/dL (12.0-15.0); Immature Granulocyte Absolute 0.17 K/mm3 (0.00-0.031); Immature Granulocyte Percent A 0.8 % (0-0.5); Lymphocytes Absolute Auto 1.01 K/mm3 (0.9-3.2); Mean Corpuscular HGB Conc 29.2 g/dl (32-36); Mean Corpuscular Hemoglobin 26.8 pg (26-34); Mean Corpuscular Volume 91.5 fl (80-100); Mean Platelet Volume 11.7 fl (7.4-10.4); Monocytes Absolute Auto 1.4 K/mm3 (0.1-0.6); Monocytes Percent Auto 6.8 % (2.6-8.5); Neutrophils Absolute Auto 17.5 K/mm3 (1.3-6.7); Neutrophils Percent Auto 87.2 % (45.5-73.1); Platelet Count Result 233 k/mm3 (150-375); Red Blood Count 3.55 M/mm3 (4.2-5.4); Red Cell Distribution Width 16.6 % (11.5-14.5); White Blood Count 20.1 K/mm3 (4.5-10.0)
[2021-04-27 05:50] LABS: Alanine Aminotransferase 16 U/L (4-35); Alkaline Phosphatase 66 U/L (38-126); Anion Gap 7 mmol/L (8-16); Aspartate Amino Transferase 54 U/L (14-36); Bilirubin,Total 0.2 mg/dL (0.2-1.3); Blood Urea Nitrogen 44 mg/dL (7-17); Calcium 8.1 mg/dL (8.4-10.2); Carbon Dioxide 27 mmol/L (22-30); Chloride 109 mmol/L (98-107); Estimated CRCL calculation 37 ml/min; Estimated Glomerular Filt Rate 34; Glucose 230 mg/dL (65-110); Potassium 4.2 mmol/L (3.4-5.0); Sodium 143 mmol/L (137-145)
[2021-04-27 06:33] LABS: Platelet Estimate Adequate (Adequate)
[2021-04-27 06:34] LABS: Anisocytosis 2+ (NORMAL); Hypochromasia 1+ (NORMAL); Large Platelets Present
[2021-04-27] MEDS: LEVOTHYROXINE SODIUM INJ 100 MCG/5 ML VIAL 56 MCG IV PUSH (06:39)
[2021-04-27] MEDS: SODIUM CHLORIDE 0.9% IV 1,000 ML 125 ML IV CONT ×2 (06:50→16:47)
[2021-04-27] MEDS: DICLOFENAC SODIUM 1% 100 GM GEL (*BKC) 1 APPLIC TOPICAL ×2 (07:39→16:48)
[2021-04-27] MEDS: PANTOPRAZOLE SODIUM IV 40 MG VIAL IV PUSH (07:39)
--- NOTE | 2021-04-27 09:14 | PM.IMPN ---
Progress Note: A&P Assessment and Plan (1) Septic shock: Code(s): A41.9 - Sepsis, unspecified organism; R65.21 - Severe sepsis with septic shock Status: Acute Assessment and Plan: # septic shock secondary to pneumonia versus intra-abdominal infection # gastroenteritis # metabolic acidosis -antibiotics: Zosyn -IV fluids normal saline 125 cc/hour. Blood pressure is improving at 139/93. -anxiety: P.r.n. Ativan -if the metabolic acidosis worsens that will not be compatible with life -lactic acid only 0.9 (2) Severe sepsis: Code(s): A41.9 - Sepsis, unspecified organism; R65.20 - Severe sepsis without septic shock Status: Acute (3) Acute kidney injury: Code(s): N17.9 - Acute kidney failure, unspecified Status: Acute Assessment and Plan: # acute nonoliguric kidney injury -likely prerenal versus ischemic ATN and secondary to shock, continue supportive care IV fluids -unknown underlying CKD -creatinine is improving slowly from 2.2 to 1.5 today which is very encouraging. (4) Acute hypercapnic respiratory failure: Code(s): J96.02 - Acute respiratory failure with hypercapnia Status: Acute Assessment and Plan: # acute hypercapnic respiratory failure -continue BiPAP 12/12, patient may need to be intubated family does not withdraw care -p.r.n. 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 they will talk to hospice tonight Disposition: Pending family discussion. Were no sick remains guarded. Subjective Date/time seen: 04/27/21 11:18 Narrative:Patient seen examined at the [facility]. Patient apparently has been on hospice in the past with [facility] however she was listed as full code in [facility] brought her to the ED. daughter appears not to have a proper understanding of all hospice is. Patient is unable to advocate for herself. Patient has been bed-bound for the over last year and now may need to be on a ventilator with long-term trach to trach and PEG with poor quality of life. Patient would like to talk to her aunt prior to making any decisions. Patient to meet with hospice agency. Patient is full code until then. Patient is persistently acidotic despite BiPAP and hypercarbic, repeat ABG shows pH 7.25, pCO2 59.6 with a BiPAP setting of 20/8. WBC is improving from 30,000 to 20,000. Review of Systems Review of Systems: ROS unobtainable: Yes unobtainable due to medical condition Exam Narrative: - GENERAL: Morbidly obese chronically ill-appearing woman - EYES: Pupils reactive - HENT: With BiPAP mask over face - LUNGS: Coarse lung sounds throughout - CARDIOVASCULAR: Regular rate and rhythm. - ABDOMEN: Soft, nontender, nondistended, very obese. - : Garcia catheter in place - EXTREMITIES: No edema. Peripheral pulses 2+. - NEUROLOGIC: Unable to assess, obtunded - PSYCHIATRIC: not responding to any questions, unable to assess orientation. Very anxious, uncomfortable, in respiratory distress. - SKIN: No rashes or lesions. Objective Data Vital Signs Vital Signs: Vital Signs - 24 hr 04/26/21 12:00 04/26/21 14:00 04/26/21 14:27 Shimon
[2021-04-27 12:02] LABS: Glucose Point of Care 209 mg/dl (65-105)
[2021-04-27] MEDS: LORazepam INJ (*CRX) 2 MG/ML VIAL 1 MG IV PUSH ×2 (12:21→16:47)
[2021-04-27 18:05] LABS: Glucose Point of Care 206 mg/dl (65-105)
[2021-04-27 23:54] LABS: Glucose Point of Care 177 mg/dl (65-105)
[2021-04-28] VITALS (13 sets, daily range): BP systolic 117–147; BP diastolic 52–81; PULSE 95–128; RESP 20–25; TEMP 36.7–36.9; O2SAT 94–96
[2021-04-28] MEDS: IPRATROPIUM BR 0.02% INH SOLN 0.5 MG/2.5 ML VIAL INHALATION ×2 (03:17→12:28)
[2021-04-28] MEDS: ALBUTEROL SULFATE NEB 2.5 MG/0.5 ML INH INHALATION ×2 (03:17→12:28)
[2021-04-28] MEDS: SODIUM CHLORIDE 0.9% IV 1,000 ML 125 ML IV CONT (05:04)
[2021-04-28] MEDS: LORazepam INJ (*CRX) 2 MG/ML VIAL 1 MG IV PUSH ×3 (05:16→12:43)
[2021-04-28] MEDS: LEVOTHYROXINE SODIUM INJ 100 MCG/5 ML VIAL 56 MCG IV PUSH (06:56)
[2021-04-28] MEDS: MORPHINE SULFATE (*CRX) 4 MG/ML INJ IV PUSH ×2 (08:09→12:43)
[2021-04-28] MEDS: DICLOFENAC SODIUM 1% 100 GM GEL (*BKC) 1 APPLIC TOPICAL (08:11)
[2021-04-28] MEDS: PANTOPRAZOLE SODIUM IV 40 MG VIAL IV PUSH (08:11)
--- NOTE | 2021-04-28 08:12 | PM.IMPN ---
Progress Note: A&P Assessment and Plan (1) Septic shock: Code(s): A41.9 - Sepsis, unspecified organism; R65.21 - Severe sepsis with septic shock Status: Acute Assessment and Plan: # septic shock secondary to pneumonia versus intra-abdominal infection # gastroenteritis # metabolic acidosis -antibiotics: Zosyn -IV fluids normal saline 125 cc/hour. Blood pressure is improving at 136/81. -anxiety: P.r.n. Ativan -lactic acid only 0.9 Family meeting to start the patient on comfort measures only today. (2) Severe sepsis: Code(s): A41.9 - Sepsis, unspecified organism; R65.20 - Severe sepsis without septic shock Status: Acute (3) Acute kidney injury: Code(s): N17.9 - Acute kidney failure, unspecified Status: Acute Assessment and Plan: # acute nonoliguric kidney injury -likely prerenal versus ischemic ATN and secondary to shock, continue supportive care IV fluids -unknown underlying CKD -creatinine is improving slowly from 2.2 to 1.5 today which is very encouraging. (4) Acute hypercapnic respiratory failure: Code(s): J96.02 - Acute respiratory failure with hypercapnia Status: Acute Assessment and Plan: # acute hypercapnic respiratory failure -continue BiPAP 12/12, patient may need to be intubated family does not withdraw care -p.r.n. Morphine for air hunger and pain control -DuoNebs q.6 hours (5) Colitis: Code(s): K52.9 - Noninfective gastroenteritis and colitis, unspecified Status: Acute (6) Hypertension: Code(s): I10 - Essential (primary) hypertension Status: Acute (7) Pancreatitis: Code(s): K85.90 - Acute pancreatitis without necrosis or infection, unspecified Status: Acute Assessment and Plan: Pancreatic cyst -likely longstanding, things do acutely, incidental finding Additional Plan # chronic conditions -hypothyroidism: Levothyroxine -type 2 diabetic: Hypoglycemia protocol, sliding scale insulin -patient is bedbound at baseline, over last year, poor prognosis Diet: NPO DVT prophylaxis: Lovenox GI prophylaxis: Protonix Code status: DNI DNR. Family meeting to start the patient on comfort measures. Disposition: Pending family discussion. Prognosis remains guarded. Subjective Date/time seen: 04/28/21 08:12 s: Patient was seen and examined at the bedside. Patient apparently has been on hospice in the past; currently patient is DNI DNR. Patient is persistently acidotic despite BiPAP and hypercarbic. Review of Systems Review of Systems: All systems reviewed & are unremarkable except as noted in HPI and below ROS unobtainable: Yes unobtainable due to medical condition Exam Narrative: - GENERAL: Morbidly obese chronically ill-appearing woman - EYES: Pupils reactive - HENT: With BiPAP mask over face - LUNGS: Coarse lung sounds throughout - CARDIOVASCULAR: Regular rate and rhythm. - ABDOMEN: Soft, nontender, nondistended, very obese. - : Garcia catheter in place - EXTREMITIES: No edema. Peripheral pulses 2+. - NEUROLOGIC: Unable to assess, obtunded - PSYCHIATRIC: not responding to any questions, unable to assess orientation. Very anxious, uncomfortable, in respiratory distress. - SKIN: No rashes or lesions. Objective Data Vital Signs Vital Signs: Vital Signs - 24 hr 04/27/21 13:31 04/27/21 13:33 04/27/21 13:37 Temperature Pulse Rate 84 98 90 Respiratory Rate 24 H 25 H 24 H Blood Pressure Pulse Oximetry 100 04/27/21 14:00 04/27/21 16:00 04/27/21 16:23 Temperature 98.1 F Pulse Rate 101 H 90 90 Respiratory Rate 22 H 24 H Blood Pressure 126/81 Pulse Oximetry 96 100 04/27/21 17:53 04/27/21 20:00 04/27/21 21:12 Temperature 98.0 F Pulse Rate 107 H 110 H 99 Respiratory Rate 22 H 22 H Blood Pressure 121/78 Pulse Oximetry 95 04/27/21 21:13 04/27/21 21:18 04/27/21 22:00 Temperature Pulse Rate 99 93 109 H Respiratory Rate 22 H 22 H Blood
[2021-04-28 12:15] LABS: Glucose Point of Care 192 mg/dl (65-105)
--- NOTE | 2021-04-28 12:24 | PCRCNOTE ---
Window of time for administration has passed. See next scheduled administration.
--- NOTE | 2021-04-28 14:22 | PM.DS ---
DS: Admitting Diagnosis Discharge Date 04/28/2021 Admitting Diagnosis Sepsis Pneumonia Intra-abdominal infection DS: Discharge Diagnosis Discharge Diagnosis (1) Septic shock: Code(s): A41.9 - Sepsis, unspecified organism; R65.21 - Severe sepsis with septic shock Status: Acute Assessment and Plan: # septic shock secondary to pneumonia versus intra-abdominal infection # gastroenteritis # metabolic acidosis -antibiotics: Patient was treated with Zosyn -IV fluids normal saline 125 cc/hour. Blood pressure is improving and was stable at 136/81 this morning. -anxiety: P.r.n. Ativan -lactic acid only 0.9 Family meeting to start the patient on comfort measures only today. (2) Severe sepsis: Code(s): A41.9 - Sepsis, unspecified organism; R65.20 - Severe sepsis without septic shock Status: Acute (3) Acute kidney injury: Code(s): N17.9 - Acute kidney failure, unspecified Status: Acute Assessment and Plan: # acute nonoliguric kidney injury -likely prerenal versus ischemic ATN and secondary to shock, continue supportive care IV fluids -unknown underlying CKD -creatinine is improving slowly from 2.2 to 1.5 yesterday which is very encouraging. (4) Acute hypercapnic respiratory failure: Code(s): J96.02 - Acute respiratory failure with hypercapnia Status: Acute Assessment and Plan: # acute hypercapnic respiratory failure -continue BiPAP 12/12, patient may need to be intubated family does not withdraw care -p.r.n. Morphine for air hunger and pain control -DuoNebs q.6 hours (5) Colitis: Code(s): K52.9 - Noninfective gastroenteritis and colitis, unspecified Status: Acute (6) Hypertension: Code(s): I10 - Essential (primary) hypertension Status: Acute (7) Pancreatitis: Code(s): K85.90 - Acute pancreatitis without necrosis or infection, unspecified Status: Acute Assessment and Plan: Pancreatic cyst -likely longstanding, things do acutely, incidental finding DS: Summary Hospital Course Reason for hospitalization: Uncontrolled dyspnea. Hospital Course: 76-year-old female with a history of type 2 diabetes, moderately severe aortic stenosis, coronary artery disease status post stenting, chronic diastolic congestive heart failure, and morbid obesity was living independently until January of 2020 when she contracted COVID-19 pneumonia. Since that time she has resided in a chcf and has been oxygen dependent. She has required help with 6 of 6 ADLs including set up for feedings. She has been on ambulatory and unable to get out of bed without assistance with a PPS of 30. She was incontinent of bowel and bladder. She was alert oriented x3. She was on hospice service as an outpatient with another hospice. However she remained full code. Following her COVID-19 pneumonia she did experience pulmonary emboli as well. Patient was admitted April 26 to [facility] with altered mental status. She was found to be in septic shock. CT suggested colitis and pneumonia. She was treated with IV Zosyn and received 5 L fluid resuscitation. She was also in respiratory failure with hypoxia and severe hypercapnia. daughter was also power of family life counselor opted to change code status to DNR. Other measures were continued. However the patient was not tolerating BiPAP well. She was fighting it. She did have acute in kidney injury with creatinine over 2 that improved to 1.5. Her white count was initially over 33,000 and improved to just over 20,000 with antibiotic therapy. However her respiratory status was not improving to the degree that she was not BiPAP dependent. Because the patient's poor baseline functional status and her intolerance of BiPAP her power of family life counselor opted to transition to comfort care only. Patient was discharged to be readmitted to hospice by Dr. Deng. Status at Discharge Functional status at discharge: bed bound Overa
== END 2021-04-28 14:25 | disposition hospice, inpatient (51) | DRG 871 ==
LOC: ANHED 13:39 → ANHIMU 04-26 00:15
PROVIDERS: Student in an Organized Health Care Education/Training Program; Admitting Provider Internal Medicine; Emergency Provider Emergency Medicine; PCP Internal Medicine; Visit Provider Internal Medicine
DX: A41.9 Sepsis, unspecified organism (principal); R65.21 Severe sepsis with septic shock; J18.9 Pneumonia, unspecified organism; J96.02 Acute respiratory failure with hypercapnia; J96.01 Acute respiratory failure with hypoxia; K85.90 Acute pancreatitis without necrosis or infection, unspecified; N17.0 Acute kidney failure with tubular necrosis; K86.2 Cyst of pancreas; I13.0 Hypertensive heart and chronic kidney disease with heart failure and stage 1 through stage 4 chronic kidney disease, or unspecified chronic kidney disease; I50.32 Chronic diastolic (congestive) heart failure; Z68.43 Body mass index [BMI] 50.0-59.9, adult; E11.22 Type 2 diabetes mellitus with diabetic chronic kidney disease; N18.9 Chronic kidney disease, unspecified; E11.42 Type 2 diabetes mellitus with diabetic polyneuropathy; K52.9 Noninfective gastroenteritis and colitis, unspecified; K21.9 Gastro-esophageal reflux disease without esophagitis; I25.10 Atherosclerotic heart disease of native coronary artery without angina pectoris; E66.01 Morbid (severe) obesity due to excess calories; E78.2 Mixed hyperlipidemia; J44.9 Chronic obstructive pulmonary disease, unspecified; E03.9 Hypothyroidism, unspecified; D64.9 Anemia, unspecified; G47.33 Obstructive sleep apnea (adult) (pediatric); F32.A Depression, unspecified; F41.9 Anxiety disorder, unspecified; M19.90 Unspecified osteoarthritis, unspecified site; E55.9 Vitamin D deficiency, unspecified; I35.0 Nonrheumatic aortic (valve) stenosis; Z66 Do not resuscitate; Z86.16 Personal history of COVID-19; Z90.49 Acquired absence of other specified parts of digestive tract; Z95.5 Presence of coronary angioplasty implant and graft; Z86.73 Personal history of transient ischemic attack (TIA), and cerebral infarction without residual deficits; Z79.01 Long term (current) use of anticoagulants; Z79.82 Long term (current) use of aspirin; Z79.4 Long term (current) use of insulin; Z86.711 Personal history of pulmonary embolism
CPT/HCPCS: 36415; 36600; 71045; 74176; 80053; 81003; 82375; 82805; 82948; 83050; 83605; 85025; 85610; 85730; 86140; 87040; 94002; 94003; 94640; 96361; 96365; 96366; 99285; A9270; C9113; G0378; J1815; J2060; J2270; J2543; J7030; J7040

== ENCOUNTER 2021-04-28 14:00 | HOS | payer OTHER, SELFPAY ==
[2021-04-28 14:53] VITALS: O2SAT 77
[2021-04-28] MEDS: HYDROmorphone HCL/PF (*CRX) 50 MG in SODIUM CHLORIDE 0.9% IV 95 ML IV CONT (15:27)
--- NOTE | 2021-04-28 17:13 | PC.NURSE ---
This patient, Tracy Thorpe, was received from IMU on 04/28/21 at 1713. Patient/family oriented to unit policies and routines
--- NOTE | 2021-04-28 17:18 | PC.NURSE ---
This patient, Tracy Thorpe, was transferred to [facility] on 04/28/21 at 1710. Personal belongings sent with patient. Report given to [facility]. Appropriate documentation sent with patient.
--- NOTE | 2021-04-28 17:44 | PM.IMHP ---
H&P: HPI History of Present Illness Date/Time: 04/28/21 17:44 Chief Complaint: uncontrolled dyspnea Narrative: 76-year-old female With a history of type 2 diabetes, moderately severe aortic stenosis, coronary artery disease status post stenting, chronic diastolic congestive heart failure, and morbid obesity was living independently until January of 2020 when she contracted COVID-19 pneumonia. Since that time she has resided in a longterm and has been oxygen dependent. She has required help with 6 of 6 ADLs including set up for feedings. She has been on ambulatory and unable to get out of bed without assistance with a PPS of 30. She was incontinent of bowel and bladder. She was alert oriented x3. She was on hospice service as an outpatient with another hospice. However she remained full code. Following her COVID-19 pneumonia she did experience pulmonary emboli as well. Patient was admitted April 26 to [facility] with altered mental status. She was found to be in septic shock. CT suggested colitis and pneumonia. She was treated with IV Zosyn and received 5 L fluid resuscitation. She was also in respiratory failure with hypoxia and severe hypercapnia. daughter was also power of energy attorney opted to change code status to DNR. Other measures were continued. However the patient was not tolerating BiPAP well. She was fighting it. She did have acute in kidney injury with creatinine over 2 that improved to 1.5. Her white count was initially over 33,000 and improved to just over 20,000 with antibiotic therapy. However her respiratory status was not improving to the degree that she was not BiPAP dependent. Because the patient's poor baseline functional status and her intolerance of BiPAP her power of energy attorney opted to transition to comfort care only. Review of Systems Review of Systems: ROS unobtainable: Yes unobtainable due to medical condition [facility] Past Medical History Medical History Anemia Anxiety Aortic stenosis moderate based on echo 02/09/20 with severe aortic valve sclerosis Arthritis CAD (coronary artery disease) Cataracts, bilateral maturing CHF (congestive heart failure) echocardiogram 01/2020: EF of 55-60%, severe left ventricular wall hypertrophy, abnormal diastolic function, moderate aortic stenosis with a valve area of 1, severe aortic valve sclerosis Chronic kidney disease COPD (chronic obstructive pulmonary disease) Depression Essential (primary) hypertension GERD (gastroesophageal reflux disease) Gout Hearing loss Hypothyroidism Mixed hyperlipidemia Obesity NIRMALA on CPAP Peripheral neuropathy TIA (transient ischemic attack) Type 2 diabetes mellitus Ulcer Vision loss Vitamin D deficiency Surgical History Surgical History (Updated 06/27/20 @ 23:19 by Lissa Alexander DO) H/O inguinal hernia repair H/O tubal ligation History of cholecystectomy History of coronary artery stent placement total of 7 cardiac stents with reported last cardiac catheterization 2014 with no stents placed at that time History of umbilical hernia repair Family History Family History Father Hypertension Cerebrovascular accident CAD (coronary artery disease) Mother Acute myocardial infarction Diabetes mellitus Lung cancer Hypertension Social History Social History (Updated 04/26/21 @ 08:43 by Lissa Alexander DO) Social History: Ms. Thorpe lived at [facility] until January 2020. At that time she was hospitalized for COVID-19 pneumonia and after her COVID infection she was no longer ambulatory and had to be placed in longterm. Primary care physician: Dr. Hamilton Tristan Code status: DNR Healthcare power of energy attorney: Lisa (daughter) Smoking status: Never smoker Second hand tobacco smoke exposure: No Alcohol intake: unknown Substance u
[2021-04-28 20:00] VITALS: O2SAT 96
[2021-04-29 02:09] VITALS: BP 129/72; PULSE 71; RESP 16; TEMP 36; O2SAT 96
[2021-04-29 07:44] VITALS: BMI 54.8
[2021-04-29 08:00] VITALS: O2SAT 96
--- NOTE | 2021-04-29 12:04 | PC.NURSE ---
Patients daughter, Tracy, expressing concerns over hospice. She called this RN at the bedside to discuss care with her. She states You guys just have her doped up now and she won't even communicate now. How long is it going to be until she dies? You shiloh told us hours and its been almost 24 hours now. Discussed with her that the goal of hospice is comfort care, and we are unable to determine when a patient will ultimately . She was very agitated still, even after discussing with her in depth regarding care, medications, etc. She did throw around the idea of revoking hospice as she felt that her mom was getting better prior to DNR/Hospice. Placed a call out to Dr. Deng to have him discuss with family as well as called Kell SMITH to speak with daughter.
[2021-04-29] MEDS: LORazepam INJ (*CRX) 2 MG/ML VIAL 1 MG IV PUSH ×2 (12:20→21:01)
[2021-04-29] MEDS: HYDROmorphone HCL INJ (*CRX) 1 MG/ML SYR IV PUSH ×3 (14:39→22:11)
[2021-04-29 14:42] VITALS: BP 152/92; PULSE 77; RESP 20; TEMP 37.2; O2SAT 92
[2021-04-29] MEDS: HYDROmorphone HCL/PF (*CRX) 50 MG in SODIUM CHLORIDE 0.9% IV 95 ML IV CONT (16:21)
[2021-04-29] MEDS: GLYCOPYRROLATE INJ (*SP) 0.2 MG/ML VIAL 0.1 MG IV PUSH (18:45)
[2021-04-29] MEDS: NEOMYCIN/POLYMYXIN/BACITRACIN OINTMENT 15 GM TUBE 1 APPLIC TOPICAL (18:46)
[2021-04-29 19:24] VITALS: BP 113/65; PULSE 53; RESP 24; TEMP 35.7; O2SAT 88
[2021-04-29 19:45] VITALS: O2SAT 88
[2021-04-30] MEDS: HYDROmorphone HCL INJ (*CRX) 1 MG/ML SYR IV PUSH ×3 (00:12→05:13)
[2021-04-30] MEDS: LORazepam INJ (*CRX) 2 MG/ML VIAL 1 MG IV PUSH ×3 (01:24→08:37)
--- NOTE | 2021-04-30 05:19 | PC.NURSE ---
Dr Deng called related to patient moaning and family upset. Pt is lying in bed and makes moaning noises while breathing. New orders received
[2021-04-30] MEDS: HYDROmorphone HCL INJ (*CRX) 1 MG/ML SYR 2 MG IV PUSH (07:09)
--- NOTE | 2021-04-30 09:33 | PM.IMPN ---
Progress Note: A&P Assessment and Plan (1) Palliative care by specialist: Code(s): Z51.5 - Encounter for palliative care Status: Acute Assessment and Plan: meets criteria for inpatient hospice admission due to requirement for continuous IV hydromorphone for control of severe dyspnea remainder of palliative regimen as ordered discussed care and prognosis with daughter, who is also power of trial attorney, at bedside (2) Severe sepsis: Code(s): A41.9 - Sepsis, unspecified organism; R65.20 - Severe sepsis without septic shock Status: Acute (3) Acute hypercapnic respiratory failure: Code(s): J96.02 - Acute respiratory failure with hypercapnia Status: Acute (4) Acute kidney injury: Code(s): N17.9 - Acute kidney failure, unspecified Status: Acute (5) Diabetes mellitus with insulin therapy: Code(s): E11.9 - Type 2 diabetes mellitus without complications; Z79.4 - termite control technician (current) use of insulin Status: Acute (6) Metabolic encephalopathy: Code(s): G93.41 - Metabolic encephalopathy Status: Acute (7) Chronic congestive heart failure: Qualifiers: Heart failure type: diastolic Qualified Code(s): I50.32 - Chronic diastolic (congestive) heart failure Code(s): I50.9 - Heart failure, unspecified Status: Acute (8) Coronary artery disease involving [place] coronary artery of [place] heart: Qualifiers: Associated angina: without angina Qualified Code(s): I25.10 - Atherosclerotic heart disease of [place] coronary artery without angina pectoris Code(s): I25.10 - Atherosclerotic heart disease of [place] coronary artery without angina pectoris Status: Acute (9) Moderate aortic stenosis: Code(s): I35.0 - Nonrheumatic aortic (valve) stenosis Status: Acute (10) NIRMALA on CPAP: Code(s): G47.33 - Obstructive sleep apnea (adult) (pediatric); Z99.89 - Dependence on other enabling machines and devices Status: Acute (11) Osteoarthritis involving multiple joints on both sides of body: Code(s): M15.9 - Polyosteoarthritis, unspecified Status: Acute Subjective Date/time seen: 04/29/21 17:00 Interval history: Resting quietly with occasional phonation while exhaling. Daughter at bedside. Review of Systems Review of Systems: ROS unobtainable: Yes unobtainable due to medical condition Exam Narrative: morbidly obese elderly female lying comfortably in her hospital bed with IV hydromorphone continuous infusion in place not responsive to verbal or tactile stimuli mucous membranes dry neck without JVD chest coarse breath sounds bilaterally with decreased breath sounds at bases heart regular rate with soft systolic ejection abdomen protuberant soft with hypoactive bowel sounds extremities no edema cyanosis or clubbing musculoskeletal without gross deformity cranial nerves symmetric to inspection Objective Data Vital Signs Vital Signs: Vital Signs - 24 hr 04/29/21 14:42 04/29/21 19:24 04/29/21 19:45 Temperature 99 F 96.2 F L Pulse Rate 77 53 L Respiratory Rate 20 24 H Blood Pressure 152/92 H 113/65 Pulse Oximetry 92 88 L 88 L Intake/Output Intake/Output: Intake & Output 04/27/21 04/28/21 04/29/21 04/30/21 23:59 23:59 23:59 23:59 Intake Total 10 Output Total 550 250 Balance -540 -250 Meds/Results Medications: Active Medications Generic Name Dose Route Start Last Admin Trade Name Freq PRN Reason Stop Dose Admin Artificial Tears 1 drop 04/28/21 14:50 Artificial Tears Ophth Soln 15 Ml Bottle EACH EYE Q12H PRN Dry Eye(s) Bisacodyl 10 mg 04/28/21 14:50 Bisacodyl 10 Mg Suppository RECTAL QAM PRN Constipation Glycopyrrolate 0.1 mg 04/28/21 14:49 04/29/21 18:45 Glycopyrrolate Inj (*Sp) 0.2 Mg/Ml Vial IV PUSH 0.1 mg Q4H PRN Administration Secretions Hydromorphone HCl 2 mg 04/30/21 05:18 04/30/21
--- NOTE | 2021-04-30 09:34 | P.DN_ITS ---
Discharge Summary Probable Cause of Probable Cause of : Respiratory failure due to sepsis and pneumonia Summary Hospital Course: Admitted for uncontrolled dyspnea and discomfort. Medications gradually increased due to phonation during exhalation. She peacefully with her daughter and supply chain technician at bedside. Additional Data Family: at bedside
== END 2021-04-30 13:18 | disposition expired | DRG 951 ==
LOC: ANH2MED 05-04 14:55 → ANHIMU 05-04 14:55
PROVIDERS: Admitting Provider Internal Medicine; PCP Internal Medicine; Visit Provider Internal Medicine
DX: Z51.5 Encounter for palliative care (principal); A41.9 Sepsis, unspecified organism; R65.21 Severe sepsis with septic shock; J96.01 Acute respiratory failure with hypoxia; J18.9 Pneumonia, unspecified organism; J96.02 Acute respiratory failure with hypercapnia; G93.41 Metabolic encephalopathy; N17.9 Acute kidney failure, unspecified; I50.32 Chronic diastolic (congestive) heart failure; Z68.43 Body mass index [BMI] 50.0-59.9, adult; J44.0 Chronic obstructive pulmonary disease with (acute) lower respiratory infection; I13.0 Hypertensive heart and chronic kidney disease with heart failure and stage 1 through stage 4 chronic kidney disease, or unspecified chronic kidney disease; I25.10 Atherosclerotic heart disease of native coronary artery without angina pectoris; I35.0 Nonrheumatic aortic (valve) stenosis; G47.33 Obstructive sleep apnea (adult) (pediatric); R32 Unspecified urinary incontinence; M15.9 Polyosteoarthritis, unspecified; E66.01 Morbid (severe) obesity due to excess calories; Z79.4 Long term (current) use of insulin; Z95.5 Presence of coronary angioplasty implant and graft; Z66 Do not resuscitate; D64.9 Anemia, unspecified; N18.9 Chronic kidney disease, unspecified; Z86.73 Personal history of transient ischemic attack (TIA), and cerebral infarction without residual deficits; E11.22 Type 2 diabetes mellitus with diabetic chronic kidney disease; E11.42 Type 2 diabetes mellitus with diabetic polyneuropathy; E03.9 Hypothyroidism, unspecified; Z90.49 Acquired absence of other specified parts of digestive tract; Z86.16 Personal history of COVID-19; Z86.711 Personal history of pulmonary embolism
CPT/HCPCS: A9270; J1170; J2060